=== PATIENT | male | born 1970 | race Caucasian/White ===

== ENCOUNTER → 2017-01-14 | Outpatient (CLI) | payer OTHER ==
[~2017-01-14] MED LIST: ACETAMINOPHEN-H1 TA2 PO; AMOXICILLIN500 MG PO; BACTROBAN CREAM15 GM T; CANAGLIFLOZIN 300 MG; CEPHALEXIN500 M1 PO; CLEOCIN HCL300 MG PO; COMBIVENT RESPIM4 GM IH; COMBIVENT RESPIMAT I; COREG3.125 MG PO; GABAPENTIN300 MG PO; HUMALOG100 UNIT/1 SQ; HYDROCODON-ACETAMINO; HYDROCODONE BIT1 T11 PO; INVANZ1 GM/50 ML IV; INVOKANA100 M1 PO; JANUVIA100 MG PO; LISINOPRIL2.5 MG PO; METFORMIN1000 MG PO; NAPROSYN500 MG PO; NEURONTIN300 MG PO; SIMVASTATIN10 MG PO; SYMBICORT1 AER INH; TRAD5TAB1 PO; TRULICITY0.75 MG/0. SC; ZESTRIL40 MG PO; ZOLOFT50 MG PO
[2017-01-14 08:47] LABS: HEMATOCRIT 45.1 % (42.0-52.0); HEMOGLOBIN 15.2 g/dl (14.0-18.0); MEAN CELL VOLUME 95.1 fl (80.0-94.0); MEAN CORPUSCULAR HGB 32.1 pg (27.0-31.0); MEAN CORPUSCULAR HGB CONC 33.7 g/dl (33.0-37.0); MEAN PLATELET VOLUME 10.7 fl (9.6-12.3); RED BLOOD COUNT 4.74 10*6/uL (4.50-5.90); RED CELL DISTRI WIDTH 12.3 % (0-14.5); WHITE BLOOD COUNT 10.1 10*3/uL (4.8-10.8)
[2017-01-14 08:55] LABS: HEMOGLOBIN A1c 6.8 % (4.8-5.6)
[2017-01-14 09:08] LABS: ALBUMIN 3.8 gm/dl (3.1-4.5); BILIRUBIN, TOTAL 0.2 mg/dl (0.2-1.0); CHLORIDE 99 mmol/L (98-107); HDL CHOLESTEROL 46 mg/dl (40-60); POTASSIUM 3.8 mmol/L (3.5-5.1); SGOT/AST 22 IU/L (3-35); SODIUM 137 mmol/L (136-145)
[2017-01-14 09:12] LABS: ALKALINE PHOSPHATASE 58 U/L (45-117); BUN 22 mg/dl (7-24); C-REACTIVE PROTEIN 1.71 MG/DL (0-0.3); CARBON DIOXIDE 28 mmol/L (21-32); EST GLOM FILT AFRICAN AMERICAN > 60 ml/min; GLUCOSE 148 mg/dL (65-99); SGPT/ALT 35 U/L (12-78); TRIGLYCERIDES 294 mg/dl (<150); VLDL CHOLESTEROL 59 mg/dL (6-40)
[2017-01-14 09:15] LABS: CHOLESTEROL 198 mg/dL (<200); LDL CHOLESTEROL 93 mg/dL (9-159)
== END | disposition home or self-care (01) ==
LOC: LAB 08:22
PROVIDERS: Family Medicine
DX: E11.9 Type 2 diabetes mellitus without complications (principal); I10 Essential (primary) hypertension; E55.9 Vitamin D deficiency, unspecified; E78.00 Pure hypercholesterolemia, unspecified

== ENCOUNTER → 2017-01-29 | Outpatient (CLI) | payer OTHER ==
--- NOTE | ~2017-01-29 | WRIGHTHP ---
[place], [place] PATIENT HISTORY AND PHYSICAL EXAM NAME: NINFA LOYOLA [facility] #: [id number] UNIT #: [id number] ROOM: DOCTOR: BUTCH OconnorAGNIESZKA BIRTHDATE: [birth year] DOS: 01/29/2017 CHIEF COMPLAINT: Diabetic foot ulcers of the right second toe and the left great toe. HISTORY OF PRESENT ILLNESS: This is a 46-year-old male with a history of type 2 diabetes and neuropathy and recurrent callus formation and recurrent diabetic foot ulcers. He has had a history of osteomyelitis of the left first toe or left great toe back in August. He was treated for this with IV antibiotics. He was seen by Infectious Disease. He was seen one time in our Wound Clinic back in June, he only followed up one time and was seen by Dr. Darling, but it looks like he had been following up with Podiatry afterwards in their office instead of here. We said the wound has just never healed on the left great toe, so he comes in with that wound and a new ulcer that is located on the right second toe. He says he has had a history of bone debridement on that foot as well. He has had a history of ulcer there before. He said he was recently seen in the local pharmacist technician's office and had a debridement of the callus done. So apparently, he said that there was a notable ulcer of the right second toe that was debrided of callus and subsequently there was an open wound underneath that. He states that the following 1 or 2 days afterwards he developed erythema and a blistering type appearance and swelling of that second right toe and he was concerned and he was referred here for further care. He does have some diabetic shoes, but they are over a year old. He also has been going back to work recently and wearing special shoes for work. 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 Also I wanted to mention that he describe the second toe on the right foot is callused over. The callus was quite thick and he did not realize that there was an open wound until after it had been debrided. Apparently, he had not been seen in a wound clinic for sometime it sounds like he had problems with perhaps insurance, so it does not seem like he was following up regularly for wound care. In any case, he did complete a course of IV antibiotics for osteo of the left great toe, but the wound never did quite heal as it sounds like. PAST MEDICAL HISTORY: Significant for following: He has had history of poorly healing wounds of both legs, type 2 diabetes, COPD, hypertension, polyneuropathy, history of stasis dermatitis, possible peripheral vascular disease. MEDICATIONS: Are as follows: Invokana 100 mg daily, Neurontin 100 mg daily. He was on ketaconazole topically foot cream, lisinopril 2.5 daily and sertraline 25 daily. ALLERGIES: No known drug allergies. SOCIAL HISTORY: He continues to smoke a pack per day. Denies any alcohol use. He is employed as I said in a factory. REVIEW OF SYSTEMS: He has no pain, no fevers or chills. He does state about the discolored changes of the toe on the right second toe. He has no nausea, [place], [place] PATIENT HISTORY AND PHYSICAL EXAM NAME: NINFA LOYOLA UNIT #: [id number] ROOM: DOCTOR: AGNIESZKA RAE M.D. BIRTHDATE: [birth year] vomiting or diarrhea. He states that he believes his sugar control was good. He is either he says was in the 6.8 range he believes, I will look this up on the computer if I can. PHYSICAL EXAMINATION: VITAL SIGNS: Temperature is 98.9, pulse is 84, respirations 18, and blood pressure is 140/76. GENERAL: This is a young male in no acute distress, pleasant and cooperative. NECK: There is no JVD. LUNGS: Clear. CARDIOVASCULAR: S1, S2 regular rate and rhythm. ABDOMEN: Soft and nontender. EXTREMITIES: He has trace edema of the right lower extremity. He has palpable pulses. His toes are warm. Capillary refill is less than 3 seconds. The WILIAM on the left is 1.01, on the right is 1.02. He has 2 open areas on the left great toe. There is a very thick callus with an open wound measuring 0.9 x 0.4 x 0.4 on the second toe of the right foot distally and there is an open wound of 1.1 x 2 x 0.1. There is a very thick callus present. There is marked erythema, edema and what appears to be the area of trauma on the dorsal aspect where it is missing a nail. A debridement was done of both of these areas. The tissue removed was hyperkeratotic, nonviable tissue, fibrin, slough and subcutaneous tissue on both of these wounds. #15 blade was utilized as well as forceps and separate instruments were used for both of these wounds. There was a moderate amount of bleeding that was controlled with pressure. Post-debridement measurements are as follows: The left great toe wound is measuring 1.1 x 0.8 x 0.5. The right second toe is measuring 3 cm x 2 cm x 1.4 cm. After the callus was removed necrotic tissue there was an obvious open tract that tunneled all the way to bone. I was able to probe it and I did feel bone. A swab culture was obtained from this area. LABORATORY DATA: Most recent lab work, I could find a white count done in December 2016 which shows white count 10, hemoglobin of 14. His platelet counts were 180. His glucose was 148. Chem-7 shows a BUN of 22, creatinine of 0.88, hemoglobin A1c is actually 6.8 it is pretty good. Albumin is normal at 3.8, total protein is 3. CRP is elevated at 1.71 and vitamin D as well. ASSESSMENT AND PLAN: Clinically, he has chronic ulcerations of the left great toe as well as the right second toe. I am quite concerned with the wound on the right second toe due to the fact that I feel bone and there is evidence of some cellulitis. I recommend admission to the hospital for further management to obtain Infectious Disease consultation workup with imaging studies and possible IV antibiotics. However, the patient refuses to do this, so we will start the patient on oral Levaquin for now. I did cultures. I have ordered x-rays and a complete blood work panel for baseline labs. I would like him to follow up with Infectious Disease this week if possible to see if he is a candidate for IV antibiotics. I did explain to him that I am quite concerned about it and that my recommendation still stands for admission. I have also explained that without proper offloading these wounds will never heal. He is back at work in his work boots and I think this is going to be a big problem. At some point, we may want to consider him a candidate for contact cast. He does have a special [place], [place] PATIENT HISTORY AND PHYSICAL EXAM NAME: NINFA LOYOLA UNIT #: [id number] ROOM: DOCTOR: AGNIESZKA RAE M.D. BIRTHDATE: [birth year] offloading boot that he has had, which he says he can use on his right foot so we will do that and he can use a postop shoe for the left foot for now. I have written him a note for him to be off to work in the meantime until further notice. I would like to set him up with ortho test to see if he further to make sure that he is in the proper offloading device for these wounds. Also, I would like to mention that he may be a candidate for hyperbaric oxygen as adjuvant treatment if he continues to have evidence of poor wound healing after wound care for 30 days. So we might want to consider that as well, but I would like to talk to him further about that at the next visit. Followup is in 1 week. He may need more bone debridement to be done on the second toe. He has already had some bone removed from this area, but we may need to do more. Followup is next week. AGNIESZKA RAE MD CM:HISPHYS:PATIENT HISTORY AND PHYSICAL EXAMINATION 04 47 AGNIESZKA RAE M.D. 01/29/171948 interface
== END ==
LOC: WOUNDCARE 02:01
DX: E11.621 Type 2 diabetes mellitus with foot ulcer (principal); L97.522 Non-pressure chronic ulcer of other part of left foot with fat layer exposed; L97.512 Non-pressure chronic ulcer of other part of right foot with fat layer exposed; L84 Corns and callosities; E11.69 Type 2 diabetes mellitus with other specified complication; M86.8X7 Other osteomyelitis, ankle and foot; J44.9 Chronic obstructive pulmonary disease, unspecified; I10 Essential (primary) hypertension; E11.42 Type 2 diabetes mellitus with diabetic polyneuropathy

== ENCOUNTER → 2017-01-30 | Outpatient (CLI) | payer OTHER ==
[2017-01-30 13:14] LABS: BASO # 0.1 10*3/uL (0.0-0.1); BASO % 0.7 % (0.0-1.0); EOS # 0.2 10*3/uL (0.0-0.4); EOS % 2.6 % (1.0-4.0); HEMATOCRIT 46.2 % (42.0-52.0); HEMOGLOBIN 15.4 g/dl (14.0-18.0); LYMPH # 2.6 10*3/uL (1.3-4.4); LYMPH % 34.3 % (27.0-41.0); MEAN CELL VOLUME 95.7 fl (80.0-94.0); MEAN CORPUSCULAR HGB 31.9 pg (27.0-31.0); MEAN CORPUSCULAR HGB CONC 33.3 g/dl (33.0-37.0); MEAN PLATELET VOLUME 9.8 fl (9.6-12.3); MONO # 0.6 10*3/uL (0.1-1.0); MONO % 7.7 % (3.0-9.0); NEUT # 4.2 10*3/uL (2.3-7.9); NEUT % 54.4 % (47.0-73.0); PLATELET COUNT AUTOMATED 238 10*3/uL (130-400); RED BLOOD COUNT 4.83 10*6/uL (4.50-5.90); RED CELL DISTRI WIDTH 11.8 % (0-14.5); WHITE BLOOD COUNT 7.7 10*3/uL (4.8-10.8)
[2017-01-30 13:44] LABS: BUN 23 mg/dl (7-24); CHLORIDE 104 mmol/L (98-107); SODIUM 140 mmol/L (136-145)
[2017-01-30 13:51] LABS: CARBON DIOXIDE 29 mmol/L (21-32); EST GLOM FILT AFRICAN AMERICAN > 60 ml/min; GLUCOSE 138 mg/dL (65-99); POTASSIUM 4.2 mmol/L (3.5-5.1)
[2017-01-30 13:55] LABS: PREALBUMIN 24 mg/dl (20-40)
== END | disposition home or self-care (01) ==
LOC: LAB 12:50
PROVIDERS: Internal Medicine
DX: E11.621 Type 2 diabetes mellitus with foot ulcer (principal); E11.69 Type 2 diabetes mellitus with other specified complication; B96.89 Other specified bacterial agents as the cause of diseases classified elsewhere; M86.9 Osteomyelitis, unspecified

== ENCOUNTER → 2017-02-06 | Outpatient (CLI) | payer OTHER ==
--- NOTE | ~2017-02-06 | PN ---
[place], [place] PROGRESS NOTE NAME: NINFA LOYOLA [facility] #: [id number] UNIT #: [id number] ROOM: DOCTOR: BUTCH OconnorAGNIESZKA BIRTHDATE: [birth year] DATE: 02/06/17 CHIEF COMPLAINT: Diabetic foot ulcer of the right second toe and the left great toe. HISTORY OF PRESENT ILLNESS: This patient was seen for the first time by me last week and was noted to have a very inflamed toe on the 2nd foot distal end, which appeared to be infected clinically. There was an ulcer that probed to bone that was fairly deep and large amount of callus was noted as well. The patient was advised to be admitted; however, he refused. He was given oral Levaquin for empiric antibiotics for 2 weeks and asked to follow back up in the Wound Clinic. Subsequently, he does state that the wound seems to have closed back up. The callus has returned and he is unable to pack the wound any further. There are no fevers or chills. He is tolerating the antibiotic. The redness is definitely much improved as well. There is no significant drainage. He is wearing an offloading device for his right foot and is wearing a postop shoe for the left foot for now mostly at home; however, he wore tennis shoes in today to the wound clinic, but at home has been wearing the postop shoe that was given to him. The culture that was obtained last week just grew some normal laurita. His most recent lab work shows a white count of 7, a hemoglobin of 15, platelets of 238. A BUN of 23, creatinine of 1. His hemoglobin A1c was 7. He had an elevated C-reactive protein at 4.4 and an ESR of 32 I believe. He had a x-ray done of the left great toe, which showed some soft tissue swelling, but no abnormalities with the bone. However, the x-ray of the right second toe did show osteomyelitis of the distal phalanx of the second digit of the right foot. He was requested to have seen Infectious Disease; however, apparently this has not been done yet. He still has not been able to get in, is not clear why. He is tolerating the antibiotics. No fevers or chills are noted. PHYSICAL EXAMINATION: VITAL SIGNS: As follows: Temperature is 98.7, pulse of 80, respirations 18, blood pressure is 140/80. WOUND EXAMINATION: The wound is measuring on the left great toe is measuring 1.3 x 4 x 0.2 in depth, that is of the left great toe. There is moderate to large amount of callus. There is really no purulence or tenderness or erythema noted. The wound on the second digit of the right foot is measuring 0.1 x 0.1 x 0.1. It is essentially covered in thick dry callus with marked ecchymosis present. Debridement was done of both of these wounds. Instruments used were a #15 blade. Separate instruments were used for both these wounds as well as a curette. The tissue removed was hyperkeratosis, callus, fibrin, slough and subcutaneous tissue. There was minimal bleeding controlled with pressure. Post-debridement measurements of the wound on the right foot is 0.6 x 0.5 x 0.9, the depth was measured with the probe. I could still feel bone. The measurements on the left great toe post-debridement are as follows 1.2 x 0.4 x 0.3 in depth. ASSESSMENT AND PLAN: Diabetic foot ulcers of the left great toe and right second digit with associated osteomyelitis of the second toe on the right foot. I have requested for an Infectious Disease consultation. We will reiterate this and hopefully try to get this obtained as soon as possible. Due to the fact that there is osteo and there is bone, the probe goes to the bone, we will have him seen by Podiatry as well to see if bone resection is possibly indicated. He has seen Dr. Ayon for surgeries in the past who has done debridements for him as well as grafting so we will refer to Dr. Ayon. I did speak to him and the patient will hopefully get in next week to see him. In the meantime, we will continue with oral Levaquin for now. It definitely seems to have helped a lot of the [place], [place] PROGRESS NOTE NAME: NINFA LOYOLA UNIT #: [id number] ROOM: DOCTOR: AGNIESZKA RAE M.D. BIRTHDATE: [birth year] inflammation and cellulitis that was present. It is definitely much improved. There are no signs of an acute infection at this time today. He also has a chronic nonhealing ulcer of the left great toe. There does not appear to be currently any osteo noted on the x-ray. The wound is chronic and is formed by repetitive thick callus formation. This was debrided today. We will continue with the current dressing Aquacel silver for now and at some point a contact cast may be an option for him as well to help heal this ulcer. Followup in 1 week. AGNIESZKA RAE M.D. CM:PNTRANS [id number] AGNIESZKA RAE M.D. 02/11/17 1411 SOL [email or web address].R
--- NOTE | ~2017-02-06 | PN ---
[place], [place] PROGRESS NOTE NAME: NINFA LOYOLA [facility] #: [id number] UNIT #: [id number] ROOM: DOCTOR: BUTCH OconnorAGNIESZKA BIRTHDATE: [birth year] DATE: 02/06/17 CHIEF COMPLAINT: Diabetic foot ulcer of the right second toe and the left great toe. HISTORY OF PRESENT ILLNESS: This patient was seen for the first time by me last week and was noted to have a very inflamed toe on the 2nd foot distal end, which appeared to be infected clinically. There was an ulcer that probed to bone that was fairly deep and large amount of callus was noted as well. The patient was advised to be admitted; however, he refused. He was given oral Levaquin for empiric antibiotics for 2 weeks and asked to follow back up in the Wound Clinic. Subsequently, he does state that the wound seems to have closed back up. The callus has returned and he is unable to pack the wound any further. There are no fevers or chills. He is tolerating the antibiotic. The redness is definitely much improved as well. There is no significant drainage. He is wearing an offloading device for his right foot and is wearing a postop shoe for the left foot for now mostly at home; however, he wore tennis shoes in today to the wound clinic, but at home has been wearing the postop shoe that was given to him. The culture that was obtained last week just grew some normal laurita. His most recent lab work shows a white count of 7, a hemoglobin of 15, platelets of 238. A BUN of 23, creatinine of 1. His hemoglobin A1c was 7. He had an elevated C-reactive protein at 4.4 and an ESR of 32 I believe. He had a x-ray done of the left great toe, which showed some soft tissue swelling, but no abnormalities with the bone. However, the x-ray of the right second toe did show osteomyelitis of the distal phalanx of the second digit of the right foot. He was requested to have seen Infectious Disease; however, apparently this has not been done yet. He still has not been able to get in, is not clear why. He is tolerating the antibiotics. No fevers or chills are noted. PHYSICAL EXAMINATION: VITAL SIGNS: As follows: Temperature is 98.7, pulse of 80, respirations 18, blood pressure is 140/80. WOUND EXAMINATION: The wound is measuring on the left great toe is measuring 1.3 x 4 x 0.2 in depth, that is of the left great toe. There is moderate to large amount of callus. There is really no purulence or tenderness or erythema noted. The wound on the second digit of the right foot is measuring 0.1 x 0.1 x 0.1. It is essentially covered in thick dry callus with marked ecchymosis present. Debridement was done of both of these wounds. Instruments used were a #15 blade. Separate instruments were used for both these wounds as well as a curette. The tissue removed was hyperkeratosis, callus, fibrin, slough and subcutaneous tissue. There was minimal bleeding controlled with pressure. Post-debridement measurements of the wound on the right foot is 0.6 x 0.5 x 0.9, the depth was measured with the probe. I could still feel bone. The measurements on the left great toe post-debridement are as follows 1.2 x 0.4 x 0.3 in depth. ASSESSMENT AND PLAN: Diabetic foot ulcers of the left great toe and right second digit with associated osteomyelitis of the second toe on the right foot. I have requested for an Infectious Disease consultation. We will reiterate this and hopefully try to get this obtained as soon as possible. Due to the fact that there is osteo and there is bone, the probe goes to the bone, we will have him seen by Podiatry as well to see if bone resection is possibly indicated. He has seen Dr. Ayon for surgeries in the past who has done debridements for him as well as grafting so we will refer to Dr. Ayon. I did speak to him and the patient will hopefully get in next week to see him. In the meantime, we will continue with oral Levaquin for now. It definitely seems to have helped a lot of the [place], [place] PROGRESS NOTE NAME: NINFA LOYOLA UNIT #: [id number] ROOM: DOCTOR: AGNIESZKA RAE M.D. BIRTHDATE: [birth year] inflammation and cellulitis that was present. It is definitely much improved. There are no signs of an acute infection at this time today. He also has a chronic nonhealing ulcer of the left great toe. There does not appear to be currently any osteo noted on the x-ray. The wound is chronic and is by repetitive thick callus formation. This was debrided today. We will continue with the current dressing Aquacel silver for now and at some point a contact cast may be an option for him as well to help heal this ulcer. Followup in 1 week. AGNIESZKA RAE M.D. CM:PNTRANS 06 06 AGNIESZKA RAE M.D. 02/07/17 1725 SOL [email or web address].[email or web address]
== END ==
LOC: WOUNDCARE 02:22
DX: E11.621 Type 2 diabetes mellitus with foot ulcer (principal); L97.522 Non-pressure chronic ulcer of other part of left foot with fat layer exposed; L97.512 Non-pressure chronic ulcer of other part of right foot with fat layer exposed; E11.69 Type 2 diabetes mellitus with other specified complication; M86.8X7 Other osteomyelitis, ankle and foot; L84 Corns and callosities

== ENCOUNTER → 2017-02-13 | Outpatient (CLI) | payer OTHER ==
--- NOTE | ~2017-02-13 | PR ---
[place], [place] PROGRESS NOTE NAME: NINFA LOYOLA [facility] #: [id number] UNIT #: [id number] ROOM: DOCTOR: BUTCH OconnorAGNIESZKA BIRTHDATE: [birth year] DOS: 02/13/2017 WOUND CARE PROGRESS NOTE CHIEF COMPLAINT: Diabetic foot ulcer of the right second toe and the left great toe. HISTORY OF PRESENT ILLNESS: The patient has had a wound on the right second toe for approximately 3 weeks now. He was referred to us by his pole peeler, Dr. Gasca. He had a fairly deep tunneling wound at the tip of his toe that did probe to bone. An x-ray was positive for osteomyelitis. His culture grew out normal laurita. He was started empirically on oral Levaquin until he could get in to see Infectious Disease. He has an appointment with Infectious Disease next week. He is tolerating the antibiotics well. He says the wound appears to be healing. He is wearing an offloading removable walking shoe or device, which is a long one, not a short one at this point. He has been off of work now for 2-3 weeks. 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 He has not been able to see if he can get light duty or not. He also has a wound on the left great toe, which makes offloading really challenging due to the fact that he has got 2 different sites here that are affected. He has had a wound on his left great toe off and on since last year. At one point, he did have osteo of the left great toe. The recent x-ray was negative. It is associated with the thick callus formation. He has no specific complaints. He does say that he is not able to pack the wound as much on the second toe as before as it seems like it is getting more shallow. He has not been able to see Dr. Ayon yet. He was thinking that they were going to call him for an appointment, so I will find out how we can arrange for followup with Podiatry. PHYSICAL EXAMINATION: VITAL SIGNS: His temp is 98.4, his pulse is 92, respirations 18, and blood pressure is 144/84. WOUND EXAMINATION: The wound on the left great toe is measuring 1.1 x 0.4 x 0.2. The depth is not as deep due to the callus. There is still some callus around it, but it is definitely not as prominent as before. There is no necrotic tissue present. The wound on the toe is measuring 0.1 x 0.1 x 0.1. At this point, it is covered with some callus, but not as thick as before. Debridement was done of both of these wounds. The tissue removed on the right foot was hyperkeratotic callus only, nonviable tissue and it did seem to be open after removal of this. This was done with a #15 blade. There was a minimal amount of bleeding that was controlled with pressure. I did not appreciate a bone exposure at this time. The post-debridement measurements are as follows 0.3 x 0.3 x 0.2. The wound on the left great toe, this is a subcutaneous debridement. The tissue removed was hyperkeratotic callus with a #15 blade and a curette to clean the base of the wound. There was minimal amount of bleeding that was controlled with pressure. The post-debridement measurements are 1.1 x 0.4 x 0.2 as before. ASSESSMENT AND PLAN: Bilateral foot ulcers with osteo of the right toe and a chronic nonhealing wound of the left great toe. Due to the fact that there was osteo present on the right toe, we have chosen to use an offloading device on [place], [place] PROGRESS NOTE [facility] [id number] UNIT #: [id number] ROOM: DOCTOR: AGNIESZKA RAE M.D. BIRTHDATE: [birth year] this foot for now. He is going to see Dr. Reyes next week and also I would like to get him in with Dr. Ayon to see if he thinks bone debridement is necessary. The wound does appear to be healing fairly nicely at this point with wound care and antibiotics. I would like to continue with oral antibiotics for now until he sees doctor at Infectious Disease. For the left toe ulcer, it is fairly stagnant at this point and I think a lot of it has to do with offloading. It would be difficult to try and offload this one with the cast at this point while he has another offloading device on his right foot. So, we are going to switch to a collagen. There is no sign of infection and hopefully if the wound on the right side remains good like it has been, we can consider doing a cast on the left side and a postop shoe on the right. This is potentially the plan for next week if things are continuing to go in the right direction. I will write a script for refill of the antibiotics until seen by doctor at Infectious Disease. AGNIESZKA RAE MD CM:PNTRANS [id number] AGNIESZKA RAE M.D. 02/14/17 0435 interface
== END ==
LOC: WOUNDCARE 03:00
DX: E11.621 Type 2 diabetes mellitus with foot ulcer (principal); L97.522 Non-pressure chronic ulcer of other part of left foot with fat layer exposed; L97.512 Non-pressure chronic ulcer of other part of right foot with fat layer exposed; E11.69 Type 2 diabetes mellitus with other specified complication; M86.8X7 Other osteomyelitis, ankle and foot

== ENCOUNTER → 2017-02-20 | Outpatient (CLI) | payer OTHER ==
--- NOTE | ~2017-02-20 | PR ---
[place], [place] PROGRESS NOTE NAME: NINFA LOYOLA [facility] #: [id number] UNIT #: [id number] ROOM: DOCTOR: BUTCH OconnorAGNIESZKA BIRTHDATE: [birth year] DOS: 02/20/2017 CHIEF COMPLAINT: Diabetic foot ulcer of the right second toe and the left great toe. HISTORY OF PRESENT ILLNESS: The patient has had a wound on his right second toe for approximately 4 weeks now. He was initially sent to us by Podiatry for this wound. Initially, the wound was quite deep after callus was removed and it did probe to bone. The x-ray was positive for osteomyelitis. Cultures just grew normal laurita. He was started empirically on oral Levaquin. He was referred to Infectious Disease. He has not been able to see her yet, but he is going to see her tomorrow. Last week, it looked like the wound had been healing fairly nicely and seems to definitely be more shallow. This week, however, callus seems to have really thickened up quite a bit. There are no fevers or chills. He is on the Levaquin without any issues and reports no pain. He also has a wound on the left great toe on the plantar aspect that has been present since on and off for almost a year. Recent x-ray of that was negative. He still has a very thick callus of the left great toe that is noted. He has a offloading boot that was initially made for the left foot; however, he has been using it for the right to help offload the second toe. No pain, fevers or chills are noted. PHYSICAL EXAMINATION: VITAL SIGNS: As follows: Temperature is 98.6, pulse of 84, respirations 16, blood pressure is 140/82. WOUND EXAM: The wound on the left great toe is measuring about the same at 1.1 x 0.4 x 0.2. There is very thick amount of callus present. There is no undermining noted. No cellulitis or purulence noted minimal fibrin slough was present at the base of the wound. The wound on the right second toe is measuring 0.1 x 0.1 x 0.1. It is really covered in a very thick callus. Debridement was done of this area. The tissue removed was hyperkeratotic tissue and some subcutaneous tissue. This was performed with a #15 blade and a curette. There was a moderate amount of bleeding that was controlled with pressure. A curette was taken deep into the wound to remove some tissue and that tissue was sent for culture. The patient tolerated the debridement well, and the bleeding was controlled with pressure. A debridement was also done on the left great toe area that was a selective debridement with hyperkeratotic tissue only that was removed and some fibrin and slough. There was a moderate amount of bleeding that was controlled with pressure and silver nitrate and a #15 blade was utilized. Post-debridement measurements are unchanged. However, the post-debridement measurements on the right great toe are 0.3 x 0.3 x 1 cm deep that was checked with the probe. ASSESSMENT AND PLAN: Right second toe ulceration with osteomyelitis confirmed by chest x-ray. It did seem that the wound had been improving last week; however, now it seems to have a tunneled again and it is fairly deep. There are no overt systemic signs of infection. He has had at least almost 30 days of standard wound care with still a fairly deep wound present. He is going to be seen by Infectious Disease tomorrow. He has been on oral antibiotics at least almost a month now. I think that he would be a candidate for possible hyperbaric oxygen as adjuvant therapy to save as much of the toe as possible; [place], [place] PROGRESS NOTE NAME: NINFA LOYOLA UNIT #: [id number] ROOM: DOCTOR: AGNIESZKA RAE M.D. BIRTHDATE: [birth year] however, he may still need further bone debridement to be done if this does not improve as well. The left great toe wound is stable and stagnant. It is not healing secondary to poor offloading, so the shoe that he had before was made for offloading. He said he had a good result with that, so I want him to use on the left foot for now instead of the right. He continues a postop shoe for the right foot. Eventually, I want to get him into a contact cast as long as he can balance okay as he has wounds on both of his feet, which makes things offloading a bit of a challenge, so hopefully will try to get him early next week for a contact cast of the left great toe. I think that since the great toe was affected on this, I felt we should concentrate on trying to heal this one at this time with a cast. I think that he would do well with this on this foot, and I think this wound would heal fairly quickly with a contact cast. The right second toe wound culture was redone today. We will see what grows and then we will have him pack this wound with Aquacel Ag ribbon for now as before and consider HBO therapy. He has had standard wound care. He has had bone debridement in the past. He has had almost 30 days' worth of antibiotics. He is going to have Infectious Disease consultation. He has had offloading. His diabetes is fairly well controlled with a hemoglobin A1c of 7, and he has good vascular flow. He does have a history of COPD, so eventually we will have to get him cleared that way, but he wants us to go ahead and check with his insurance first to see if they would approve this treatment or not. Follow up early next week. AGNIESZKA RAE MD CM:PNTRANS [phone] AGNIESZKA RAE M.D. 02/21/17 0257 interface
== END | disposition home or self-care (01) ==
LOC: WOUNDCARE 01:15 → LAB 01:15 → WOUNDCARE 13:57
DX: E11.621 Type 2 diabetes mellitus with foot ulcer (principal); M86.00 Acute hematogenous osteomyelitis, unspecified site; B96.89 Other specified bacterial agents as the cause of diseases classified elsewhere

== ENCOUNTER → 2017-02-27 | Outpatient (CLI) | payer OTHER ==
--- NOTE | ~2017-02-27 | PR ---
[place], [place] PROGRESS NOTE NAME: NINFA LOYOLA [facility] #: [id number] UNIT #: [id number] ROOM: DOCTOR: BUTCH OconnorAGNIESZKA BIRTHDATE: [birth year] DOS: 02/27/2017 CHIEF COMPLAINT: Followup of diabetic foot ulcers. HISTORY OF PRESENT ILLNESS: The patient has had a wound on his right second toe for approximately 5 weeks now. This is a recurrent ulceration. He has had this before, has had bone debridement and some surgical intervention for osteo per patient report of this toe. In addition, he has a chronic ulcer on the left great toe which is also diabetic and is recurrent and has been present since at least August according to the patient. He has been following up in the Wound Clinic now for several weeks now. During the initial visit, the patient was noted to have what appeared to be an obvious infection of the second toe after callus removal. Bone was probed and was recommended for the patient to be admitted for IV antibiotics and further wound care. However, the patient declined this recommendation and was started on oral antibiotics. Levaquin was chosen. He was referred to Infectious Disease as well and had an x-ray that was positive for osteomyelitis of the right second toe. The patient has been on the oral Levaquin for 3-[address] weeks now[address] Reyes who discontinued the Levaquin and had ordered an MRI, but he says it was of the left foot and not the right foot. He comes in today without any specific complaints, but does note that the toe is definitely redder than it had been last week. The wound is open and he says he noted it was somewhat goopy according to the patient when he changed the dressing this morning. He is wearing an offloading shoe for the left great toe ulcer and wearing a postop shoe for the right foot at this time. He has no specific complaints. He does continue to smoke. I did recommend that he try and quit as this will impede wound healing and he seems to be aware of this. He is currently off work at the present moment. He denies any pain, fevers or chills. No other specific complaints. OBJECTIVE: VITAL SIGNS: Stable. Temperature is 98.6, pulse is 82, respirations 16, blood pressure is 128/76. WOUND EXAMINATION: The left great toe wound is about the same 1.1 x 0.4 x 0.20. There is some callus formation around the periwound and does not seem to be as thick as it was last week; however, I do not see a change as far as the improvement goes. There does not appear to be any sign of infection. The second great toe wound is measuring 0.5 x 0.4 x 1 cm in depth. This area debridement was done. The right second toe was debrided first. The tissue removed was callus, fibrin slough and subcutaneous tissue down, bone was probed. There was a moderate amount of bleeding that was controlled with pressure. Post-debridement measurements are the same; however, the depth goes down to 1.1 and it is easily probed with a curette and not just with a small probe. Debridement was done of the left great toe. The tissue removed was callus, fibrin, slough and subcutaneous tissue. There was a moderate amount of bleeding that was controlled with pressure. Post-debridement measurements are unchanged except for the depth of 0.3. The patient tolerated the debridement well. There was moderate amount of bleeding that was controlled with pressure. His most recent labs showed ESR of 3 down from 32. The CRP is down to 0.94. It was 4.4. Hemoglobin A1c is 7 and his cultures have been negative so far. [place], [place] PROGRESS NOTE NAME: NINFA LOYOLA Camila UNIT #: [id number] ROOM: DOCTOR: AGNIESZKA RAE M.D. BIRTHDATE: [birth year] ASSESSMENT AND PLAN: Diabetic foot ulcers. The right great toe ulcer is a Zaragoza 3 by clinical examination and by imaging studies. He has bone still exposed when you probe it and it is still a quite deep ulceration. The redness is definitely worse than it was last week. It has definitely come back since subsequently to antibiotics being discontinued. I have placed a call to Infectious Disease to see if perhaps it would benefit from him with starting IV antibiotics that can be placed with the PICC line and outpatient use. He is not septic. However, there is a concern of ongoing infection of the toe. He also has had some debridement done of that toe. However, since the bone is still exposed and he continues to have an open deep wound, I would like him to also be evaluated by Dr. Ayon who has seen him before and has operated on him in the past for some bone removal to see if that would help facilitate. He has had bone debridement before, but he may need further debridement. He also in my opinion would be considered a candidate for hyperbaric oxygen as he has had 30 days of standard wound care. He has had bone debridement done in that wound before. He has had antibiotics; however, continues to have an open deep wound that is not healing. His hemoglobin A1c is under control and he does not have any vascular disease, so I would like to see if we can set him up for that. Insurance paperwork will be started. Hopefully, he will meet criteria to be able to be a candidate. Once his approval occurs, then we will go ahead and do a chest x-ray and EKG for clearance. His left great toe ulcer is stagnant and has not really improved. It does not appear to be acutely infected. I think this is nonhealing secondary to offloading. I did want to put a contact cast on today; however, Infectious Disease has ordered an MRI of the left foot so I will wait for this until that is done first. It does not appear to be acutely infected; however, clinically, so we will go ahead and wait for the imaging studies of that and I will hopefully talk to Infectious Disease regarding the second toe to see if any different antibiotic can be utilized. Cultures were negative so far. As far as dressings go for the left great toe, I would like to use collagen dressing and have him use his offloading shoe for now that he has. For the right second toe, I would like to just use iodoform packing and for him to change it every day for now. Hopefully, he will be able to get in to see Podiatry this week. Follow up in Wound Clinic in 1 week. [place], [place] PROGRESS NOTE NAME: NIRNINFA Camila UNIT #: [id number] ROOM: DOCTOR: AGNIESZKA RAE M.D. BIRTHDATE: [birth year] AGNIESZKA RAE MD CM:PNTRANS [id number] AGNIESZKA RAE M.D. 03/04/17 0738 interface
== END ==
LOC: WOUNDCARE 01:10
DX: E11.621 Type 2 diabetes mellitus with foot ulcer (principal); L97.522 Non-pressure chronic ulcer of other part of left foot with fat layer exposed; L97.512 Non-pressure chronic ulcer of other part of right foot with fat layer exposed; E11.69 Type 2 diabetes mellitus with other specified complication; M86.471 Chronic osteomyelitis with draining sinus, right ankle and foot; L84 Corns and callosities

== ENCOUNTER → 2017-03-25 | Outpatient (CLI) | payer OTHER | END | disposition home or self-care (01) | LOC: MRI 09:36 | DX: S92.311A Displaced fracture of first metatarsal bone, right foot, initial encounter for closed fracture (principal); M86.8X7 Other osteomyelitis, ankle and foot; M19.071 Primary osteoarthritis, right ankle and foot; X58.XXXA Exposure to other specified factors, initial encounter; Y93.89 Activity, other specified; Y92.89 Other specified places as the place of occurrence of the external cause; Y99.8 Other external cause status ==

== ENCOUNTER → 2017-03-27 | Outpatient (CLI) | payer OTHER | END | disposition home or self-care (01) | LOC: MRI 03-25 10:00 | DX: S91.102A Unspecified open wound of left great toe without damage to nail, initial encounter (principal); M86.172 Other acute osteomyelitis, left ankle and foot; M86.171 Other acute osteomyelitis, right ankle and foot; E11.9 Type 2 diabetes mellitus without complications; X58.XXXA Exposure to other specified factors, initial encounter; Y93.89 Activity, other specified; Y92.89 Other specified places as the place of occurrence of the external cause; Y99.8 Other external cause status ==

== ENCOUNTER → 2017-04-03 | Outpatient (CLI) | payer OTHER ==
[~2017-04-03] MED LIST changes: +DOXYCYCLINE100 MG PO; +FARXIGA10 M1 PO; +LIPITOR10 MG PO; +METFORMIN500 MG PO; +NORCO 5-325 TA1 EACH PO
== END | disposition home or self-care (01) ==
LOC: RESCLI 02:53
DX: Z01.818 Encounter for other preprocedural examination (principal); L97.519 Non-pressure chronic ulcer of other part of right foot with unspecified severity; J44.9 Chronic obstructive pulmonary disease, unspecified; I10 Essential (primary) hypertension; F41.9 Anxiety disorder, unspecified; Z72.0 Tobacco use

== ENCOUNTER → 2017-04-09 | Outpatient (CLI) | payer OTHER | END | disposition home or self-care (01) | LOC: RESCLI 03:55 | DX: E11.59 Type 2 diabetes mellitus with other circulatory complications (principal); M86.9 Osteomyelitis, unspecified; Z72.0 Tobacco use; Z79.4 Long term (current) use of insulin ==

== ENCOUNTER → 2017-04-10 | Day surgery (SDC) | payer OTHER ==
[~2017-04-10] VITALS: Ht 180.3 cm; Wt 104.3 kg
--- NOTE | ~2017-04-10 | O ---
[place], [place] OPERATIVE NOTE NAME: NINFA LOYOLA UNIT #: [id number] ROOM: DOCTOR: SB LOCKETT III, DPM BIRTHDATE: [birth year] DOS: 04/10/2017 TIME OF DICTATION: 12:27 p.m. SURGEON: Sb Lockett DPM. BIT SANDER: 1. Fco Calvo DPM. 2. Chemo Ventura DPM. PREOPERATIVE DIAGNOSIS: Osteomyelitis, right second digit. POSTOPERATIVE DIAGNOSIS: Osteomyelitis, right second digit. PROCEDURE: Bone debridement, biopsy with partial amputation of the right second digit. HEMOSTASIS: None. ESTIMATED BLOOD LOSS: 10 mL. MATERIALS: None. INJECTABLES: Approximately 10 mL of 0.5% Marcaine plain was injected in a local block type fashion prior to start of the case. FINDINGS: Consistent with preoperative diagnosis. COMPLICATIONS: None. HISTORY OF PRESENT ILLNESS: This is a male well known to us in the outpatient setting who has been treated for previous history of ulcerations as well as osteomyelitis of his digits. Most notably on the right second digit the patient had an MRI suspicious for osteomyelitis as well as possible septic arthritis of his distal interphalangeal joint. He also had an ulceration to the plantar sulcus of his right second digit. We discussed the options with the patient preoperatively. He had failed outpatient IV antibiotics as well as local wound care. After discussion with the patient, we felt that partial amputation versus complete amputation with bone debridement and biopsy was appropriate and he was in agreement. Therefore, the patient was consented for bone debridement, biopsy with partial versus complete amputation of his right second digit. All risks, benefits, complications, procedures, alternatives were discussed and all questions were answered to his apparent satisfaction. The pre, javier, postoperative course was also discussed. PHYSICAL EXAMINATION: VASCULAR: DP and PT pulses are palpable, CFT within normal limits, mild edema. DERMATOLOGY: The patient has a full thickness ulceration appreciated plantar [place], [place] OPERATIVE NOTE NAME: NINFA LOYOLA UNIT #: [id number] ROOM: DOCTOR: SB LOCKETT III, DPM BIRTHDATE: [birth year] sulcus of his right second digit with exposed bone. He has a distal right second digit ulceration as well that appears to probe to bone. No signs of infection or inflammation. No cellulitis tracking proximally. No lymphangitis. NEUROLOGIC: Loss of protective sensation secondary to diabetic peripheral neuropathy. ORTHOPEDIC: Muscle strength is maintained. DESCRIPTION OF PROCEDURE: The patient was brought to the operating room and laid on the table in supine position. His foot was prepped and draped in usual sterile fashion. Pneumatic compression device was placed on the contralateral limb for DVT prophylaxis. Preoperative antibiotics were administered per hospital protocol. Our attention was directed to the right second digit where again an ulceration was appreciated distal aspect of his digit. The probe to bone as well as a plantar ulceration to the sulcus of the toe with exposed tendon. A fishmouth type incision was outlined over the base of the toe that spiral dorsally that had adequate soft tissue for flap coverage. We then made a full thickness incision down through skin as well as subcutaneous tissue with both sharp as well as blunt dissection. All bleeders were cauterized as necessary. Bone was sent from the distal phalanx for culture as well as biopsy. The toe was disarticulated at the level of the proximal interphalangeal joint and a proximal clean margin was sent from the proximal phalanx. Copious irrigation was then performed with approximately 3 liters of sterile saline using cystoscopy tube drainage. A post-lavage deep soft tissue culture was obtained. Dirty gloves and drapes were exchanged for clean and a delayed closure was then performed with 2-0 Vicryl followed by skin closure with 3-0 nylon. The patient tolerated the procedure well and left the operating room with neurovascular status intact and vital signs stable. Prognosis for healing is fair. He will follow up with us in the outpatient setting. We will be going back into his walking boot. He will take 81 mg aspirin for DVT prophylaxis as well as doxycycline for antibiotic prophylactically. We will follow up with him in the office next week. [place], [place] OPERATIVE NOTE NAME: NINFA LOYOLA UNIT #: [id number] ROOM: DOCTOR: SB LOCKETT III, DPM BIRTHDATE: [birth year] SB LOCKETT III, DPM CM:OPRECORD:OPERATIVE NOTE [id number] SB LOCKETT III DPHeaven 04/10/17 1328 interface
[2017-04-10 11:12] VITALS: BP 136/78
[2017-04-10 12:33] VITALS: BP 151/85
[2017-04-10 12:48] VITALS: BP 133/86
[2017-04-10 13:03] VITALS: BP 132/81
[2017-04-10 13:17] VITALS: BP 134/82
== END | disposition home or self-care (01) ==
LOC: SDC 04-04 08:45
DX: E11.621 Type 2 diabetes mellitus with foot ulcer (principal); E11.69 Type 2 diabetes mellitus with other specified complication; M86.8X7 Other osteomyelitis, ankle and foot; L97.519 Non-pressure chronic ulcer of other part of right foot with unspecified severity; I10 Essential (primary) hypertension; K21.9 Gastro-esophageal reflux disease without esophagitis; F32.9 Major depressive disorder, single episode, unspecified; J43.9 Emphysema, unspecified; Z83.3 Family history of diabetes mellitus; Z82.5 Family history of asthma and other chronic lower respiratory diseases; F17.210 Nicotine dependence, cigarettes, uncomplicated

== ENCOUNTER → 2017-07-25 | Outpatient (CLI) | payer OTHER | END | disposition home or self-care (01) | LOC: RAD 16:09 | DX: R05 Cough (principal); R06.2 Wheezing; R09.89 Other specified symptoms and signs involving the circulatory and respiratory systems; E11.9 Type 2 diabetes mellitus without complications; J44.9 Chronic obstructive pulmonary disease, unspecified; F17.200 Nicotine dependence, unspecified, uncomplicated ==

== ENCOUNTER → 2017-07-30 | Outpatient (CLI) | payer OTHER ==
[2017-07-30 16:34] LABS: ALBUMIN 3.5 gm/dl (3.1-4.5); ALKALINE PHOSPHATASE 86 U/L (45-117); BUN 11 mg/dl (7-24); CHLORIDE 100 mmol/L (98-107); CHOLESTEROL 181 mg/dL (<200); CPK 117 U/L (39-308); CREATININE 0.84 mg/dL (0.70-1.30); HDL CHOLESTEROL 37 mg/dl (40-60); LDL CHOLESTEROL 122 mg/dL (9-159); POTASSIUM 4.1 mmol/L (3.5-5.1); SGOT/AST 25 IU/L (3-35); SGPT/ALT 28 U/L (12-78); SODIUM 138 mmol/L (136-145); TOTAL PROTEIN 8.4 gm/dL (6.4-8.2); TRIGLYCERIDES 110 mg/dl (<150); VLDL CHOLESTEROL 22 mg/dL (6-40)
== END | disposition home or self-care (01) ==
LOC: LAB 15:56
PROVIDERS: Family Medicine
DX: E11.40 Type 2 diabetes mellitus with diabetic neuropathy, unspecified (principal); E78.00 Pure hypercholesterolemia, unspecified

== ENCOUNTER 2018-01-05 13:13 | Inpatient (IN) | payer OTHER ==
[~2018-01-05] VITALS: Ht 180.3 cm; Wt 106.3 kg
--- NOTE | ~2018-01-05 | WRIGHTHP ---
[place], [place] PATIENT HISTORY AND PHYSICAL EXAM NAME: NINFA LOYOLA [facility] #: [id number] UNIT #: [id number] ROOM: 532 DOCTOR: YOLANDE JUSTICE MD BIRTHDATE: [birth year] DOS: 01/05/2018 HISTORY OF PRESENT ILLNESS: The patient is a 47-year-old gentleman with a past medical history of: 1. Obesity. 2. Type 2 diabetes mellitus since the age of [age] years old. 3. Previous history of osteomyelitis of the first big toe and amputation of the second digit of the right foot. 4. History of nicotine smoke dependence. 5. Benign essential hypertension. 6. History of chronic back pains. 7. History of COPD. The patient presented to the Emergency Department at [facility] because of worsening of his left big toe infection. The patient says the infection has been going on off and on for about 2 years now and his toe was getting ready to fall off. The patient was evaluated in the Emergency Department and admitted for further management. No complaints of any chest pains. No shortness of breath. No GI or urinary symptoms. The patient says his blood sugar is staying around 120 as checked at home. REVIEW OF SYSTEMS: LUNGS: No increasing shortness of breath. GASTROINTESTINAL: No nausea, vomiting, diarrhea or constipation. CARDIOVASCULAR SYSTEM: No chest pains or palpitations. SOCIAL HISTORY: History of nicotine smoke dependent. Denies any alcohol or drug abuse. HOME MEDICATIONS: The patient takes DuoNeb, Farxiga, Neurontin. FAMILY HISTORY: Noncontributory. PHYSICAL EXAMINATION: GENERAL: Alert and oriented x 3, moderately obese, in no visible distress, BMI of 32.7.. GENERAL APPEARANCE: The patient is alert and oriented x 3, in no visible distress. HEENT AND NECK: Extraocular movements are intact. Sclerae are anicteric. Oral mucosa is moist and clean. No obvious facial weakness. Neck is supple without any lymphadenopathy. No thyromegaly. No JVD. No carotid arterial bruits. LUNGS: Clear to auscultation. No wheezing. No rhonchi. CARDIOVASCULAR SYSTEM: Heart rate is regular in rate and rhythm. S1 and S2 normally audible. No significant murmur or any other abnormal cardiac sounds. ABDOMEN: Soft, nontender. No obvious organomegaly. Bowel sounds are present. No obvious herniation. EXTREMITIES: The patient has a necrotic wound of the left great toe and signs of scarring and ____ surgery at the right great toe and also amputation of the distal second digit of the right foot. CENTRAL NERVOUS SYSTEM: Alert and oriented x 3. Cranial nerves II-XII are [place], [place] PATIENT HISTORY AND PHYSICAL EXAM NAME: NINFA LOYOLA UNIT #: [id number] ROOM: [facility] DOCTOR: YOLANDE JUSTICE MD BIRTHDATE: [birth year] intact. Speech is normal. The patient is able to move all extremities. Normal muscle strength. Deep tendon reflexes are equal on both sides. Plantars were downgoing. LABORATORY DATA: Hemoglobin A1c 6.5. No leukocytosis. Hemoglobin 14.6. IMPRESSION AND PLAN: 1. Type 2 diabetes mellitus, with well controlled blood sugars, staying around 120 as checked at home and HbA1c of 6.5. I will continue his present treatment. 2. Diabetic left great toe ulcer with necrotic toe, to be evaluated by Dr. Miles. The patient may require amputation. 3. Major depression, recurrent, mild, treated and controlled with Zoloft. 4. Diabetic peripheral polyneuropathy, treated with gabapentin and Vicodin as needed, which has been continued. 5. Previous history of hypertension, with slightly elevated blood pressures. The patient's blood pressures apparently had been diet controlled recently. 6. Poor compliance with treatment and the patient apparently has not seen his doctor for some time. 7. Nicotine smoke dependence, centrilobular emphysema. The patient encouraged to stop. YOLANDE JUSTICE MD CM:HISPHYS:PATIENT HISTORY AND PHYSICAL EXAMINATION [id number] YOLANDE JUSTICE MD 01/05/18 2007 interface
--- NOTE | ~2018-01-05 | PR ---
[place], [place] PROGRESS NOTE NAME: NINFA LOYOLA UNIT #: [id number] ROOM: 532 DOCTOR: YOLANDE JUSTICE MD BIRTHDATE: [birth year] DOS: 01/08/2018 SUBJECTIVE: The patient is starting to feel better after surgery. The pain is improving. He is still requiring Dilaudid. OBJECTIVE: VITAL SIGNS: Blood pressure 124/70, heart rate of 66 beats per minute, breathing normally, afebrile. GENERAL APPEARANCE: Alert and oriented x 3. HEENT AND NECK: Exam within normal limits. CARDIOVASCULAR SYSTEM: Heart rate is regular in rate and rhythm. S1 and S2 normally audible. LUNGS: Clear to auscultation. ABDOMEN: Soft, nontender. No obvious organomegaly. Bowel sounds are present. EXTREMITIES: Amputated left toe. IMPRESSION: 1. Diabetic left big toe ulcer with necrosis and severe infection, acute over chronic, status post amputation with significant pains, being controlled with IV Dilaudid and being followed by Dr. Miles, the surgeon. 2. Type 2 diabetes mellitus, with well controlled blood sugars. 3. Centrilobular emphysema, treated and controlled. The patient is on bronchodilators. 4. Obesity, BMI of 32.7. The patient is working with Dietary. YOLANDE JUSTICE MD CM:PNTRANS [id number] YOLANDE JUSTICE MD 01/08/182009 interface
--- NOTE | ~2018-01-05 | DS ---
[place], [place] DISCHARGE SUMMARY NAME: NINFA LOYOLA UNIT #: [id number] ROOM: 532 DOCTOR: YOLANDE JUSTICE MD BIRTHDATE: [birth year] DOS: 01/09/2018 DISCHARGE DIAGNOSES: 1. Necrotic left toe and osteomyelitis with diabetic foot ulcer, nonhealing for about 2 years. 2. History of obesity. 3. Type 2 diabetes mellitus, well controlled since the age of [age] years old. 4. History of nicotine smoke dependence. 5. Benign essential hypertension. 6. Chronic back pains. 7. Chronic obstructive pulmonary disease. HOSPITAL COURSE: The patient presented to the emergency department with worsening of left big toe infection, which had been recurrent for about 2 years. The patient said toe was ready to fall off and he was evaluated by Dr. Miles, the surgeon, who took him for amputation and following this, the patient was kept on IV Dilaudid for pain control. The patient was continued on antibiotics and will be going home on Augmentin and follow up with Dr. Miles as an outpatient. Type 2 diabetes mellitus was well controlled. Blood sugars with a hemoglobin A1c of 6.5. Major depression, recurrent, mild, treated and controlled with Zoloft. Previous history of hypertension with controlled blood pressures. Nicotine smoke dependence and centrilobular emphysema. The patient encouraged to stop smoking cigarettes. LABORATORY DATA: Blood cultures were negative. Foot x-ray showed great toe soft swelling ulceration without radiopaque foreign body, erosion of fracture. Hemoglobin A1c of 6.5. DISCHARGE MANAGEMENT: Metoclopramide 10 mg t.i.d. p.r.n., Zoloft 100 mg a day, gabapentin 800 mg 3 times a day, metformin 1000 mg b.i.d., Augmentin 875 mg b.i.d. for a week, Vicodin p.r.n. for pain, which he was already taking at home. [place], [place] DISCHARGE SUMMARY NAME: NINFA LOYOLA UNIT #: [id number] ROOM: 532 DOCTOR: YOLANDE JUSTICE MD BIRTHDATE: [birth year] YOLANDE JUSTICE MD CM:JB [id number] YOLANDE JUSTICE MD 01/10/18 1128 interface
--- NOTE | ~2018-01-05 | PR ---
[place], [place] PROGRESS NOTE NAME: NINFA LOYOLA UNIT #: [id number] ROOM: 532 DOCTOR: YOLANDE JUSTICE MD BIRTHDATE: [birth year] DOS: 01/06/2018 SUBJECTIVE: The patient is doing about the same. He has necrotic left big toe. OBJECTIVE: GENERAL APPEARANCE: The patient is alert and oriented x 3, in no visible distress. VITAL SIGNS: Blood pressure 141/75, heart rate 78 beats per minute, breathing 18 times per minute, temperature 98 degrees Fahrenheit. HEENT AND NECK: Exam within normal limits. CARDIOVASCULAR SYSTEM: Heart rate is regular in rate and rhythm. S1 and S2 normally audible. LUNGS: Clear to auscultation. ABDOMEN: Soft, nontender. No obvious organomegaly. Bowel sounds are present. EXTREMITIES: Necrotic left big toe. IMPRESSION: 1. Diabetic left great toe ulcer with necrotic toe. The patient going for surgery tomorrow with Dr. Miles. 2. Type 2 diabetes mellitus with well controlled blood sugars. HbA1c of 6.5. 3. Major depression, treated and controlled. The patient on Zoloft. 4. History of hypertension, diet-controlled. Blood pressures have been staying normal. 5. History of centrilobular emphysema, presently asymptomatic. 6. Obesity with BMI of 32.7. The patient working with dietary. YOLANDE JUSTICE MD CM:PNTRANS [id number] YOLANDE JUSTICE MD 01/06/18 1402 interface
--- NOTE | ~2018-01-05 | PR ---
[place], [place] PROGRESS NOTE NAME: NINFA LOYOLA UNIT #: [id number] ROOM: 532 DOCTOR: YOLANDE JUSTICE MD BIRTHDATE: [birth year] DOS: 01/07/2018 SUBJECTIVE: The patient is doing well after left big toe amputation. He was other than complaining of some pain, which improved with use of Dilaudid. PHYSICAL EXAMINATION: GENERAL APPEARANCE: The patient is alert and oriented x 3, in no visible distress. VITAL SIGNS: Blood pressure 136/76, heart rate 72 beats per minute, breathing 20 times per minute, temperature 98.3 degrees Fahrenheit. HEENT AND NECK: Exam within normal limits. CARDIOVASCULAR SYSTEM: Heart rate is regular in rate and rhythm. S1 and S2 normally audible. LUNGS: Clear to auscultation. ABDOMEN: Soft, nontender. No obvious organomegaly. Bowel sounds are present. EXTREMITIES: Left big toe amputation. IMPRESSION: 1. Diabetic left big toe which is necrotic, status post amputation by Dr. Miles. Pain is better controlled with Dilaudid. 2. Type 2 diabetes mellitus. Blood sugars are well controlled. 3. Benign essential hypertension, diet-controlled. 4. Centrilobular emphysema, presently asymptomatic. 5. Obesity, BMI of 32.7. The patient is working with dietary. YOLANDE JUSTICE MD CM:PNTRANS [phone] YOLANDE JUSTICE MD 01/08/18 0001 interface
--- NOTE | ~2018-01-05 | O ---
[place], [place] OPERATIVE NOTE NAME: NINFA LOYOLA UNIT #: [id number] ROOM: [facility] DOCTOR: KERWIN MACEDO DO BIRTHDATE: [birth year] DOS: 01/07/2018 PREOPERATIVE DIAGNOSIS: Left hallux osteomyelitis with open ulcer. OPERATION PERFORMED: Left hallux amputation. SURGEON: Ry Caraballo M.D. ALUMNI RELATIONS COORDINATOR: Dr. Agustín Macedo. ANESTHESIA: MAC with 0.5% Sensorcaine used as a digital block. ESTIMATED BLOOD LOSS: Less than 10 mL. COMPLICATIONS: There were no complications. INDICATION: Nonhealing ulcer of left hallux. DESCRIPTION OF PROCEDURE: The patient was brought to the operating room and placed on the operating table in supine position. The patient was draped and prepped in normal sterile technique. The patient had an incision made circumferentially around the left hallux until the proximal metatarsal was palpated directly by the periosteal elevator. Periosteal elevator was then used to make blunt dissection to enter the MTP joint. The soft tissues of the toe were then taken off after blunt dissection was successful. The proximal phalanges was then removed after the capsule was opened using the Bovie. At that time, the Bovie was used for hemostasis. The soft tissue was sent off for culture, Gram stain and the proximal phalanges was sent off for culture and Gram stain as well. Any necrotic tissue was debrided. The incisions were cleaned up. There was a 3-0 Vicryl used for suture ligation of the digital artery. The 3-0 Vicryl was then used as a stay stitch. The wound was then irrigated using 50 mL normal saline, 3-0 Vicryls were then tied, 0 nylon was then used to close the skin, 2 horizontal mattresses were placed, 1 medially, 1 laterally. Two vertical mattresses were placed and then 2 simple interrupted sutures were placed and the wound was then dressed. The patient awoke from the procedure without any complications and transferred to the PACU in stable condition. Agustín Macedo DO [place], [place] OPERATIVE NOTE NAME: NINFA LOYOLA UNIT #: [id number] ROOM: [facility] DOCTOR: KERWIN MACEDO DO BIRTHDATE: [birth year] RY CARABALLO MD CM:OPRECORD:OPERATIVE NOTE [id number] KERWIN MACEDO DO 01/08/18 0000 interface
[~2018-01-05 13:13] MED LIST changes: -METFORMIN500 MG PO; -NEURONTIN300 MG PO; +NEURONTIN800 MG PO; +ZOLOFT100 MG PO; -ZOLOFT50 MG PO
[2018-01-05 13:17] VITALS: BP 151/71
[2018-01-05 13:47] LABS: BASO % 0.5 % (0.0-1.0); EOS # 0.2 10*3/uL (0.0-0.4); EOS % 2.4 % (1.0-4.0); HEMATOCRIT 44.4 % (42.0-52.0); HEMOGLOBIN 14.6 g/dl (14.0-18.0); LYMPH % 23.3 % (27.0-41.0); MEAN CELL VOLUME 99.3 fl (80.0-94.0); MEAN CORPUSCULAR HGB 32.7 pg (27.0-31.0); MEAN CORPUSCULAR HGB CONC 32.9 g/dl (33.0-37.0); MONO # 0.7 10*3/uL (0.1-1.0); MONO % 7.9 % (3.0-9.0); NEUT # 5.5 10*3/uL (2.3-7.9); NEUT % 65.4 % (47.0-73.0); PLATELET COUNT AUTOMATED 253 10*3/uL (130-400); RED BLOOD COUNT 4.47 10*6/uL (4.50-5.90); RED CELL DISTRI WIDTH 12.6 % (0-14.5); WHITE BLOOD COUNT 8.4 10*3/uL (4.8-10.8)
[2018-01-05 13:57] LABS: ACT PARTIAL THROMBO TIME 26.1 SECONDS (20.8-31.5); INTERNATIONAL NORM RATIO 0.9 (2.0-3.5)
[2018-01-05 14:03] LABS: ALBUMIN 3.1 gm/dl (3.1-4.5); ALKALINE PHOSPHATASE 87 U/L (45-117); BUN 16 mg/dl (7-24); CHLORIDE 103 mmol/L (98-107); CREATININE 0.85 mg/dL (0.70-1.30); POTASSIUM 4.3 mmol/L (3.5-5.1); SGOT/AST 17 IU/L (3-35); SGPT/ALT 26 U/L (12-78); SODIUM 138 mmol/L (136-145); TOTAL PROTEIN 8.3 gm/dL (6.4-8.2)
[2018-01-05 14:08] VITALS: BP 137/71
[2018-01-05 14:18] LABS: TROPONIN I < 0.015 ng/ml (<0.045)
[2018-01-05] MEDS ORDERED: FARXIGA10 M1 PO (15:34)
[2018-01-05 16:00] VITALS: BP 150/84
[2018-01-05 20:20] VITALS: BP 142/77
[2018-01-06] VITALS: BP 139/85
[2018-01-06 06:06] LABS: BILIRUBIN NEGATIVE (NEGATIVE); BLOOD NEGATIVE (NEGATIVE); CLARITY CLEAR (CLEAR); COLOR YELLOW (YELLOW); GLUCOSE 3+ (NEGATIVE); KETONE NEGATIVE (NEGATIVE); LEUKO ESTERASE NEGATIVE (NEGATIVE); NITRITE NEGATIVE (NEGATIVE); PH 5.5 (5.0-9.0); UROBILINOGEN 0.2 E.U./dl (0.2-1.0)
[2018-01-06 06:28] LABS: BACTERIA TRACE
[2018-01-06 08:00] VITALS: BP 141/75
[2018-01-06 16:00] VITALS: BP 148/83
[2018-01-06 20:00] VITALS: BP 158/74
[2018-01-07] VITALS (8 sets, daily range): BP systolic 126–158; BP diastolic 61–92
[2018-01-08] VITALS: BP 149/90
[2018-01-08 08:00] VITALS: BP 141/70
[2018-01-08 12:00] VITALS: BP 143/82
[2018-01-08 16:00] VITALS: BP 124/70
[2018-01-08 20:00] VITALS: BP 137/71
[2018-01-09] VITALS: BP 138/72
[2018-01-09 08:00] VITALS: BP 129/69
[2018-01-09 12:00] VITALS: BP 132/73
[2018-01-09 16:00] VITALS: BP 136/76
[2018-01-09] MEDS ORDERED: AUGMENTIN 875-875 MG PO (17:07)
[2018-01-09] MEDS ORDERED: HYDROCODONE-AC1 EAC1 PO (18:31)
== END 2018-01-09 19:26 | disposition home or self-care (01) | DRG 617 ==
LOC: ED 13:13 → 5E 13:51 → EDHOLD 13:51 → 5E 14:13
PROVIDERS: Emergency Medicine
PROC: 0Y6Q0Z0 Detachment at Left 1st Toe, Complete, Open Approach (ICD-10-PCS; principal; 2018-01-07)
DX: E11.621 Type 2 diabetes mellitus with foot ulcer (principal); F33.0 Major depressive disorder, recurrent, mild; M86.8X7 Other osteomyelitis, ankle and foot; L97.524 Non-pressure chronic ulcer of other part of left foot with necrosis of bone; J43.2 Centrilobular emphysema; E66.9 Obesity, unspecified; I10 Essential (primary) hypertension; G89.29 Other chronic pain; M54.9 Dorsalgia, unspecified; F17.210 Nicotine dependence, cigarettes, uncomplicated; E11.42 Type 2 diabetes mellitus with diabetic polyneuropathy; E11.69 Type 2 diabetes mellitus with other specified complication; Z71.6 Tobacco abuse counseling; Z79.899 Other long term (current) drug therapy; Z83.3 Family history of diabetes mellitus; Z83.6 Family history of other diseases of the respiratory system

== ENCOUNTER → 2018-01-16 | Outpatient (CLI) | payer OTHER ==
[~2018-01-16] MED LIST changes: +AUGMENTIN 875-875 MG PO; +HYDROCODONE-AC1 EAC1 PO
[2018-01-16 09:05] LABS: HEMATOCRIT 47.4 % (42.0-52.0); HEMOGLOBIN 15.6 g/dl (14.0-18.0); MEAN CELL VOLUME 98.1 fl (80.0-94.0); MEAN CORPUSCULAR HGB 32.3 pg (27.0-31.0); MEAN CORPUSCULAR HGB CONC 32.9 g/dl (33.0-37.0); MEAN PLATELET VOLUME 9.7 fl (9.6-12.3); RED BLOOD COUNT 4.83 10*6/uL (4.50-5.90); RED CELL DISTRI WIDTH 12.3 % (0-14.5); WHITE BLOOD COUNT 8.7 10*3/uL (4.8-10.8)
[2018-01-16 09:40] LABS: ALBUMIN 3.1 gm/dl (3.1-4.5); ALKALINE PHOSPHATASE 75 U/L (45-117); BUN 19 mg/dl (7-24); CHLORIDE 100 mmol/L (98-107); CHOLESTEROL 175 mg/dL (<200); CPK 88 U/L (39-308); CREATININE 0.84 mg/dL (0.70-1.30); HDL CHOLESTEROL 33 mg/dl (40-60); LDL CHOLESTEROL 99 mg/dL (9-159); POTASSIUM 4.1 mmol/L (3.5-5.1); SGOT/AST 19 IU/L (3-35); SGPT/ALT 30 U/L (12-78); SODIUM 137 mmol/L (136-145); TOTAL PROTEIN 8.6 gm/dL (6.4-8.2); TRIGLYCERIDES 217 mg/dl (<150); VLDL CHOLESTEROL 43 mg/dL (6-40)
== END | disposition home or self-care (01) ==
LOC: WOUNDCARE 02:16 → LAB 02:16 → WOUNDCARE 13:33
PROVIDERS: Family Medicine
DX: E78.00 Pure hypercholesterolemia, unspecified (principal); I10 Essential (primary) hypertension; E11.9 Type 2 diabetes mellitus without complications; L03.90 Cellulitis, unspecified; G62.9 Polyneuropathy, unspecified

== ENCOUNTER → 2018-01-23 | Outpatient (CLI) | payer OTHER | END | disposition home or self-care (01) | LOC: WOUNDCARE 01:28 | DX: T87.89 Other complications of amputation stump (principal); E11.69 Type 2 diabetes mellitus with other specified complication; M86.472 Chronic osteomyelitis with draining sinus, left ankle and foot; E55.9 Vitamin D deficiency, unspecified; I10 Essential (primary) hypertension; J44.9 Chronic obstructive pulmonary disease, unspecified; F17.200 Nicotine dependence, unspecified, uncomplicated; Z89.421 Acquired absence of other right toe(s); Y83.5 Amputation of limb(s) as the cause of abnormal reaction of the patient, or of later complication, without mention of misadventure at the time of the procedure ==

== ENCOUNTER → 2018-01-30 | Outpatient (CLI) | payer OTHER | END | disposition home or self-care (01) | LOC: WOUNDCARE 01:39 | DX: T87.89 Other complications of amputation stump (principal); E11.69 Type 2 diabetes mellitus with other specified complication; M86.8X8 Other osteomyelitis, other site; I10 Essential (primary) hypertension; J44.9 Chronic obstructive pulmonary disease, unspecified; F17.200 Nicotine dependence, unspecified, uncomplicated; Z89.421 Acquired absence of other right toe(s); Y83.5 Amputation of limb(s) as the cause of abnormal reaction of the patient, or of later complication, without mention of misadventure at the time of the procedure ==

== ENCOUNTER → 2018-02-06 | Outpatient (CLI) | payer OTHER | END | disposition home or self-care (01) | LOC: WOUNDCARE 00:23 | DX: T87.89 Other complications of amputation stump (principal); E11.621 Type 2 diabetes mellitus with foot ulcer; L97.521 Non-pressure chronic ulcer of other part of left foot limited to breakdown of skin; E11.69 Type 2 diabetes mellitus with other specified complication; M86.9 Osteomyelitis, unspecified; J44.9 Chronic obstructive pulmonary disease, unspecified; I10 Essential (primary) hypertension; F17.200 Nicotine dependence, unspecified, uncomplicated; Z89.421 Acquired absence of other right toe(s); Y83.5 Amputation of limb(s) as the cause of abnormal reaction of the patient, or of later complication, without mention of misadventure at the time of the procedure ==

== ENCOUNTER → 2018-02-18 | Outpatient (CLI) | payer OTHER | END | disposition home or self-care (01) | LOC: WOUNDCARE 08:25 | DX: T87.89 Other complications of amputation stump (principal); E11.621 Type 2 diabetes mellitus with foot ulcer; L97.521 Non-pressure chronic ulcer of other part of left foot limited to breakdown of skin; J44.9 Chronic obstructive pulmonary disease, unspecified; I10 Essential (primary) hypertension; E11.69 Type 2 diabetes mellitus with other specified complication; M86.8X8 Other osteomyelitis, other site; F17.200 Nicotine dependence, unspecified, uncomplicated; Z89.412 Acquired absence of left great toe; Z89.421 Acquired absence of other right toe(s); Y83.5 Amputation of limb(s) as the cause of abnormal reaction of the patient, or of later complication, without mention of misadventure at the time of the procedure ==

== ENCOUNTER → 2018-02-27 | Outpatient (CLI) | payer OTHER | END | disposition home or self-care (01) | LOC: WOUNDCARE 02:32 | DX: T81.31XD Disruption of external operation (surgical) wound, not elsewhere classified, subsequent encounter (principal); E11.621 Type 2 diabetes mellitus with foot ulcer; L97.521 Non-pressure chronic ulcer of other part of left foot limited to breakdown of skin; E11.69 Type 2 diabetes mellitus with other specified complication; M86.472 Chronic osteomyelitis with draining sinus, left ankle and foot; E55.9 Vitamin D deficiency, unspecified; J44.9 Chronic obstructive pulmonary disease, unspecified; I10 Essential (primary) hypertension; F17.200 Nicotine dependence, unspecified, uncomplicated; Z89.412 Acquired absence of left great toe; Z89.411 Acquired absence of right great toe; Y83.8 Other surgical procedures as the cause of abnormal reaction of the patient, or of later complication, without mention of misadventure at the time of the procedure ==

== ENCOUNTER → 2018-03-06 | Outpatient (CLI) | payer OTHER | END | disposition home or self-care (01) | LOC: WOUNDCARE 01:18 | DX: T87.89 Other complications of amputation stump (principal); E11.621 Type 2 diabetes mellitus with foot ulcer; L97.521 Non-pressure chronic ulcer of other part of left foot limited to breakdown of skin; E11.69 Type 2 diabetes mellitus with other specified complication; M86.8X9 Other osteomyelitis, unspecified sites; I10 Essential (primary) hypertension; J44.9 Chronic obstructive pulmonary disease, unspecified; F17.200 Nicotine dependence, unspecified, uncomplicated; Z89.421 Acquired absence of other right toe(s); Y83.5 Amputation of limb(s) as the cause of abnormal reaction of the patient, or of later complication, without mention of misadventure at the time of the procedure ==

== ENCOUNTER → 2018-03-13 | Outpatient (CLI) | payer OTHER | END | disposition home or self-care (01) | LOC: WOUNDCARE 10:33 | DX: T87.89 Other complications of amputation stump (principal); E11.621 Type 2 diabetes mellitus with foot ulcer; L97.521 Non-pressure chronic ulcer of other part of left foot limited to breakdown of skin; L84 Corns and callosities; E11.69 Type 2 diabetes mellitus with other specified complication; M86.8X8 Other osteomyelitis, other site; I10 Essential (primary) hypertension; J44.9 Chronic obstructive pulmonary disease, unspecified; F17.210 Nicotine dependence, cigarettes, uncomplicated; Z89.412 Acquired absence of left great toe; Z89.421 Acquired absence of other right toe(s); Y83.5 Amputation of limb(s) as the cause of abnormal reaction of the patient, or of later complication, without mention of misadventure at the time of the procedure ==

== ENCOUNTER → 2018-03-20 | Outpatient (CLI) | payer OTHER | END | disposition home or self-care (01) | LOC: WOUNDCARE 03:44 | DX: T87.89 Other complications of amputation stump (principal); E11.621 Type 2 diabetes mellitus with foot ulcer; L97.521 Non-pressure chronic ulcer of other part of left foot limited to breakdown of skin; L84 Corns and callosities; E11.69 Type 2 diabetes mellitus with other specified complication; M86.8X8 Other osteomyelitis, other site; I10 Essential (primary) hypertension; J44.9 Chronic obstructive pulmonary disease, unspecified; F17.200 Nicotine dependence, unspecified, uncomplicated; Z89.421 Acquired absence of other right toe(s); Y83.5 Amputation of limb(s) as the cause of abnormal reaction of the patient, or of later complication, without mention of misadventure at the time of the procedure ==

== ENCOUNTER → 2018-03-27 | Outpatient (CLI) | payer OTHER | END | disposition home or self-care (01) | LOC: WOUNDCARE 03:02 | DX: T87.89 Other complications of amputation stump (principal); E11.621 Type 2 diabetes mellitus with foot ulcer; L97.521 Non-pressure chronic ulcer of other part of left foot limited to breakdown of skin; E11.69 Type 2 diabetes mellitus with other specified complication; M86.8X8 Other osteomyelitis, other site; I10 Essential (primary) hypertension; J44.9 Chronic obstructive pulmonary disease, unspecified; F17.200 Nicotine dependence, unspecified, uncomplicated; Z89.421 Acquired absence of other right toe(s); Y83.5 Amputation of limb(s) as the cause of abnormal reaction of the patient, or of later complication, without mention of misadventure at the time of the procedure ==

== ENCOUNTER → 2018-04-03 | Outpatient (CLI) | payer OTHER | END | disposition home or self-care (01) | LOC: WOUNDCARE 00:39 | DX: T87.89 Other complications of amputation stump (principal); S91.105D Unspecified open wound of left lesser toe(s) without damage to nail, subsequent encounter; E11.69 Type 2 diabetes mellitus with other specified complication; M86.472 Chronic osteomyelitis with draining sinus, left ankle and foot; I10 Essential (primary) hypertension; J44.9 Chronic obstructive pulmonary disease, unspecified; F17.200 Nicotine dependence, unspecified, uncomplicated; Z89.421 Acquired absence of other right toe(s); X58.XXXD Exposure to other specified factors, subsequent encounter; Y83.5 Amputation of limb(s) as the cause of abnormal reaction of the patient, or of later complication, without mention of misadventure at the time of the procedure ==

== ENCOUNTER → 2018-04-10 | Outpatient (CLI) | payer OTHER | END | disposition home or self-care (01) | LOC: WOUNDCARE 11:45 | DX: T81.89XD Other complications of procedures, not elsewhere classified, subsequent encounter (principal); E11.621 Type 2 diabetes mellitus with foot ulcer; L97.521 Non-pressure chronic ulcer of other part of left foot limited to breakdown of skin; E11.69 Type 2 diabetes mellitus with other specified complication; M86.472 Chronic osteomyelitis with draining sinus, left ankle and foot; J44.9 Chronic obstructive pulmonary disease, unspecified; I10 Essential (primary) hypertension; F17.210 Nicotine dependence, cigarettes, uncomplicated; Z89.421 Acquired absence of other right toe(s); Z89.412 Acquired absence of left great toe; Y83.8 Other surgical procedures as the cause of abnormal reaction of the patient, or of later complication, without mention of misadventure at the time of the procedure ==

== ENCOUNTER → 2018-04-17 | Outpatient (CLI) | payer OTHER | END | disposition home or self-care (01) | LOC: WOUNDCARE 01:11 | DX: T87.89 Other complications of amputation stump (principal); E11.621 Type 2 diabetes mellitus with foot ulcer; L97.521 Non-pressure chronic ulcer of other part of left foot limited to breakdown of skin; J44.9 Chronic obstructive pulmonary disease, unspecified; I10 Essential (primary) hypertension; E11.69 Type 2 diabetes mellitus with other specified complication; M86.8X8 Other osteomyelitis, other site; F17.200 Nicotine dependence, unspecified, uncomplicated; Z89.421 Acquired absence of other right toe(s); Y83.5 Amputation of limb(s) as the cause of abnormal reaction of the patient, or of later complication, without mention of misadventure at the time of the procedure ==

== ENCOUNTER → 2018-04-24 | Outpatient (CLI) | payer OTHER | END | disposition home or self-care (01) | LOC: WOUNDCARE 04:44 | DX: T87.89 Other complications of amputation stump (principal); E11.621 Type 2 diabetes mellitus with foot ulcer; L97.521 Non-pressure chronic ulcer of other part of left foot limited to breakdown of skin; L84 Corns and callosities; E11.69 Type 2 diabetes mellitus with other specified complication; M86.472 Chronic osteomyelitis with draining sinus, left ankle and foot; I10 Essential (primary) hypertension; J44.9 Chronic obstructive pulmonary disease, unspecified; F17.200 Nicotine dependence, unspecified, uncomplicated; Z89.421 Acquired absence of other right toe(s); Y83.5 Amputation of limb(s) as the cause of abnormal reaction of the patient, or of later complication, without mention of misadventure at the time of the procedure ==

== ENCOUNTER → 2018-05-01 | Outpatient (CLI) | payer OTHER | END | disposition home or self-care (01) | LOC: WOUNDCARE 01:50 | DX: T87.89 Other complications of amputation stump (principal); E11.621 Type 2 diabetes mellitus with foot ulcer; L97.521 Non-pressure chronic ulcer of other part of left foot limited to breakdown of skin; L84 Corns and callosities; E11.69 Type 2 diabetes mellitus with other specified complication; M86.472 Chronic osteomyelitis with draining sinus, left ankle and foot; I10 Essential (primary) hypertension; J44.9 Chronic obstructive pulmonary disease, unspecified; F17.200 Nicotine dependence, unspecified, uncomplicated; Z89.421 Acquired absence of other right toe(s); Y83.5 Amputation of limb(s) as the cause of abnormal reaction of the patient, or of later complication, without mention of misadventure at the time of the procedure ==

== ENCOUNTER → 2018-05-08 | Outpatient (CLI) | payer OTHER | END | disposition home or self-care (01) | LOC: WOUNDCARE 04:07 | DX: T81.89XD Other complications of procedures, not elsewhere classified, subsequent encounter (principal); E11.621 Type 2 diabetes mellitus with foot ulcer; L97.528 Non-pressure chronic ulcer of other part of left foot with other specified severity; E11.69 Type 2 diabetes mellitus with other specified complication; M86.472 Chronic osteomyelitis with draining sinus, left ankle and foot; I10 Essential (primary) hypertension; J44.9 Chronic obstructive pulmonary disease, unspecified; F17.200 Nicotine dependence, unspecified, uncomplicated; Z89.412 Acquired absence of left great toe; Z89.421 Acquired absence of other right toe(s); Y83.8 Other surgical procedures as the cause of abnormal reaction of the patient, or of later complication, without mention of misadventure at the time of the procedure ==

== ENCOUNTER → 2018-05-09 | Outpatient (CLI) | payer OTHER ==
[2018-05-09 10:32] LABS: HEMATOCRIT 49.9 % (42.0-52.0); HEMOGLOBIN 16.7 g/dl (14.0-18.0); MEAN CELL VOLUME 97.7 fl (80.0-94.0); MEAN CORPUSCULAR HGB 32.7 pg (27.0-31.0); MEAN CORPUSCULAR HGB CONC 33.5 g/dl (33.0-37.0); MEAN PLATELET VOLUME 10.5 fl (9.6-12.3); RED BLOOD COUNT 5.11 10*6/uL (4.50-5.90); RED CELL DISTRI WIDTH 12.9 % (0-14.5); WHITE BLOOD COUNT 6.5 10*3/uL (4.8-10.8)
[2018-05-09 11:01] LABS: ALBUMIN 3.6 gm/dl (3.1-4.5); ALKALINE PHOSPHATASE 58 U/L (45-117); BUN 24 mg/dl (7-24); CHLORIDE 105 mmol/L (98-107); CHOLESTEROL 192 mg/dL (<200); CPK 179 U/L (39-308); CREATININE 0.85 mg/dL (0.70-1.30); HDL CHOLESTEROL 42 mg/dl (40-60); LDL CHOLESTEROL 115 mg/dL (9-159); POTASSIUM 4.2 mmol/L (3.5-5.1); SGOT/AST 17 IU/L (3-35); SGPT/ALT 35 U/L (12-78); SODIUM 139 mmol/L (136-145); TOTAL PROTEIN 8.2 gm/dL (6.4-8.2); TRIGLYCERIDES 175 mg/dl (<150); VLDL CHOLESTEROL 35 mg/dL (6-40)
[2018-05-11 18:03] LABS: TESTOSTERONE FREE, (DIRECT) 9.9 pg/mL (6.8-21.5)
== END | disposition home or self-care (01) ==
LOC: LAB 10:17
PROVIDERS: Family Medicine
DX: I10 Essential (primary) hypertension (principal); E11.9 Type 2 diabetes mellitus without complications; E78.00 Pure hypercholesterolemia, unspecified; F41.1 Generalized anxiety disorder; N52.9 Male erectile dysfunction, unspecified

== ENCOUNTER → 2018-05-13 | Outpatient (CLI) | payer OTHER | END | disposition home or self-care (01) | LOC: WOUNDCARE 02:42 | DX: T87.89 Other complications of amputation stump (principal); E11.69 Type 2 diabetes mellitus with other specified complication; M86.472 Chronic osteomyelitis with draining sinus, left ankle and foot; I10 Essential (primary) hypertension; J44.9 Chronic obstructive pulmonary disease, unspecified; Z89.421 Acquired absence of other right toe(s); F17.200 Nicotine dependence, unspecified, uncomplicated; Y83.5 Amputation of limb(s) as the cause of abnormal reaction of the patient, or of later complication, without mention of misadventure at the time of the procedure ==

== ENCOUNTER → 2018-05-19 | Outpatient (CLI) | payer OTHER | END | disposition home or self-care (01) | LOC: RAD 15:44 | DX: M25.461 Effusion, right knee (principal) ==

== ENCOUNTER → 2018-06-10 | Outpatient (CLI) | payer OTHER | END | disposition home or self-care (01) | LOC: WOUNDCARE 03:30 | DX: T81.89XD Other complications of procedures, not elsewhere classified, subsequent encounter (principal); E11.69 Type 2 diabetes mellitus with other specified complication; M86.472 Chronic osteomyelitis with draining sinus, left ankle and foot; J44.9 Chronic obstructive pulmonary disease, unspecified; I10 Essential (primary) hypertension; F17.200 Nicotine dependence, unspecified, uncomplicated; Z89.412 Acquired absence of left great toe; Y83.8 Other surgical procedures as the cause of abnormal reaction of the patient, or of later complication, without mention of misadventure at the time of the procedure ==

== ENCOUNTER → 2018-06-24 | Outpatient (CLI) | payer OTHER | END | disposition home or self-care (01) | LOC: WOUNDCARE 06-20 10:28 | DX: T81.89XD Other complications of procedures, not elsewhere classified, subsequent encounter (principal); E11.69 Type 2 diabetes mellitus with other specified complication; M86.472 Chronic osteomyelitis with draining sinus, left ankle and foot; J44.9 Chronic obstructive pulmonary disease, unspecified; I10 Essential (primary) hypertension; F17.200 Nicotine dependence, unspecified, uncomplicated; Z89.412 Acquired absence of left great toe; Y83.8 Other surgical procedures as the cause of abnormal reaction of the patient, or of later complication, without mention of misadventure at the time of the procedure ==

== ENCOUNTER → 2018-07-01 | Outpatient (CLI) | payer OTHER | END | disposition home or self-care (01) | LOC: WOUNDCARE 02:22 | DX: T87.89 Other complications of amputation stump (principal); E11.69 Type 2 diabetes mellitus with other specified complication; M86.472 Chronic osteomyelitis with draining sinus, left ankle and foot; L84 Corns and callosities; I10 Essential (primary) hypertension; J44.9 Chronic obstructive pulmonary disease, unspecified; F17.200 Nicotine dependence, unspecified, uncomplicated; Y83.5 Amputation of limb(s) as the cause of abnormal reaction of the patient, or of later complication, without mention of misadventure at the time of the procedure ==

== ENCOUNTER → 2018-07-08 | Outpatient (CLI) | payer OTHER | END | disposition home or self-care (01) | LOC: WOUNDCARE 03:55 | DX: T87.89 Other complications of amputation stump (principal); E11.69 Type 2 diabetes mellitus with other specified complication; M86.472 Chronic osteomyelitis with draining sinus, left ankle and foot; L84 Corns and callosities; I10 Essential (primary) hypertension; J44.9 Chronic obstructive pulmonary disease, unspecified; F17.200 Nicotine dependence, unspecified, uncomplicated; Z89.421 Acquired absence of other right toe(s); Y83.5 Amputation of limb(s) as the cause of abnormal reaction of the patient, or of later complication, without mention of misadventure at the time of the procedure ==

== ENCOUNTER → 2018-07-15 | Outpatient (CLI) | payer OTHER | END | disposition home or self-care (01) | LOC: WOUNDCARE 00:35 | DX: T87.89 Other complications of amputation stump (principal); E11.69 Type 2 diabetes mellitus with other specified complication; M86.472 Chronic osteomyelitis with draining sinus, left ankle and foot; L84 Corns and callosities; I10 Essential (primary) hypertension; J44.9 Chronic obstructive pulmonary disease, unspecified; F17.200 Nicotine dependence, unspecified, uncomplicated; Z89.421 Acquired absence of other right toe(s) ==

== ENCOUNTER → 2018-07-22 | Outpatient (CLI) | payer OTHER | END | disposition home or self-care (01) | LOC: WOUNDCARE 04:20 | DX: T87.89 Other complications of amputation stump (principal); E11.69 Type 2 diabetes mellitus with other specified complication; M86.472 Chronic osteomyelitis with draining sinus, left ankle and foot; I10 Essential (primary) hypertension; J44.9 Chronic obstructive pulmonary disease, unspecified; F17.200 Nicotine dependence, unspecified, uncomplicated; Z89.421 Acquired absence of other right toe(s); Y83.5 Amputation of limb(s) as the cause of abnormal reaction of the patient, or of later complication, without mention of misadventure at the time of the procedure ==

== ENCOUNTER → 2018-07-31 | Outpatient (CLI) | payer OTHER | END | disposition home or self-care (01) | LOC: WOUNDCARE 03:33 | DX: T87.89 Other complications of amputation stump (principal); E11.69 Type 2 diabetes mellitus with other specified complication; M86.472 Chronic osteomyelitis with draining sinus, left ankle and foot; I10 Essential (primary) hypertension; J44.9 Chronic obstructive pulmonary disease, unspecified; F17.200 Nicotine dependence, unspecified, uncomplicated; Z89.421 Acquired absence of other right toe(s); Y83.5 Amputation of limb(s) as the cause of abnormal reaction of the patient, or of later complication, without mention of misadventure at the time of the procedure ==

== ENCOUNTER → 2018-08-07 | Outpatient (CLI) | payer OTHER | END | disposition home or self-care (01) | LOC: WOUNDCARE 02:45 | DX: T87.89 Other complications of amputation stump (principal); E11.69 Type 2 diabetes mellitus with other specified complication; M86.472 Chronic osteomyelitis with draining sinus, left ankle and foot; L84 Corns and callosities; I10 Essential (primary) hypertension; J44.9 Chronic obstructive pulmonary disease, unspecified; F17.200 Nicotine dependence, unspecified, uncomplicated; Z89.421 Acquired absence of other right toe(s); Y83.5 Amputation of limb(s) as the cause of abnormal reaction of the patient, or of later complication, without mention of misadventure at the time of the procedure ==

== ENCOUNTER → 2018-08-14 | Outpatient (CLI) | payer OTHER | END | disposition home or self-care (01) | LOC: WOUNDCARE 03:07 | DX: T87.89 Other complications of amputation stump (principal); E11.69 Type 2 diabetes mellitus with other specified complication; M86.472 Chronic osteomyelitis with draining sinus, left ankle and foot; I10 Essential (primary) hypertension; J44.9 Chronic obstructive pulmonary disease, unspecified; F17.200 Nicotine dependence, unspecified, uncomplicated; Z89.421 Acquired absence of other right toe(s); Y83.5 Amputation of limb(s) as the cause of abnormal reaction of the patient, or of later complication, without mention of misadventure at the time of the procedure ==

== ENCOUNTER → 2018-08-21 | Outpatient (CLI) | payer OTHER ==
[2018-08-21 09:57] LABS: BASO # 0.1 10*3/uL (0.0-0.1); BASO % 0.6 % (0.0-1.0); EOS # 0.3 10*3/uL (0.0-0.4); EOS % 3.1 % (1.0-4.0); HEMATOCRIT 47.8 % (42.0-52.0); LYMPH # 2.2 10*3/uL (1.3-4.4); LYMPH % 27.8 % (27.0-41.0); MEAN CELL VOLUME 99.4 fl (80.0-94.0); MEAN CORPUSCULAR HGB 33.3 pg (27.0-31.0); MEAN CORPUSCULAR HGB CONC 33.5 g/dl (33.0-37.0); MEAN PLATELET VOLUME 10.4 fl (9.6-12.3); MONO # 0.5 10*3/uL (0.1-1.0); MONO % 6.3 % (3.0-9.0); NEUT % 61.8 % (47.0-73.0); PLATELET COUNT AUTOMATED 169 10*3/uL (130-400); RED BLOOD COUNT 4.81 10*6/uL (4.50-5.90); RED CELL DISTRI WIDTH 13.8 % (0-14.5); WHITE BLOOD COUNT 8.1 10*3/uL (4.8-10.8)
[2018-08-21 10:24] LABS: ALBUMIN 3.7 gm/dl (3.1-4.5); ALKALINE PHOSPHATASE 54 U/L (45-117); BUN 24 mg/dl (7-24); CHLORIDE 106 mmol/L (98-107); POTASSIUM 4.3 mmol/L (3.5-5.1); SGOT/AST 20 IU/L (3-35); SGPT/ALT 26 U/L (12-78); SODIUM 139 mmol/L (136-145); TOTAL PROTEIN 8.5 gm/dL (6.4-8.2)
== END | disposition home or self-care (01) ==
LOC: LAB 03:27 → WOUNDCARE 03:27
DX: T81.89XD Other complications of procedures, not elsewhere classified, subsequent encounter (principal); E11.69 Type 2 diabetes mellitus with other specified complication; M86.472 Chronic osteomyelitis with draining sinus, left ankle and foot; J44.9 Chronic obstructive pulmonary disease, unspecified; I10 Essential (primary) hypertension; F17.200 Nicotine dependence, unspecified, uncomplicated; Z89.421 Acquired absence of other right toe(s); Y83.8 Other surgical procedures as the cause of abnormal reaction of the patient, or of later complication, without mention of misadventure at the time of the procedure

== ENCOUNTER → 2018-08-28 | Outpatient (CLI) | payer OTHER | END | disposition home or self-care (01) | LOC: WOUNDCARE 02:20 | DX: T87.89 Other complications of amputation stump (principal); E11.69 Type 2 diabetes mellitus with other specified complication; M86.472 Chronic osteomyelitis with draining sinus, left ankle and foot; I10 Essential (primary) hypertension; J44.9 Chronic obstructive pulmonary disease, unspecified; F17.200 Nicotine dependence, unspecified, uncomplicated; Z89.421 Acquired absence of other right toe(s); Y83.5 Amputation of limb(s) as the cause of abnormal reaction of the patient, or of later complication, without mention of misadventure at the time of the procedure ==

== ENCOUNTER → 2018-09-01 | Outpatient (CLI) | payer OTHER ==
[2018-09-01 12:42] LABS: BASO % 0.3 % (0.0-1.0); EOS # 0.2 10*3/uL (0.0-0.4); EOS % 2.5 % (1.0-4.0); HEMATOCRIT 50.5 % (42.0-52.0); HEMOGLOBIN 16.5 g/dl (14.0-18.0); LYMPH # 2.6 10*3/uL (1.3-4.4); LYMPH % 29.4 % (27.0-41.0); MEAN CELL VOLUME 99.8 fl (80.0-94.0); MEAN CORPUSCULAR HGB 32.6 pg (27.0-31.0); MEAN CORPUSCULAR HGB CONC 32.7 g/dl (33.0-37.0); MONO # 0.5 10*3/uL (0.1-1.0); MONO % 6.1 % (3.0-9.0); NEUT # 5.3 10*3/uL (2.3-7.9); NEUT % 61.4 % (47.0-73.0); PLATELET COUNT AUTOMATED 174 10*3/uL (130-400); RED BLOOD COUNT 5.06 10*6/uL (4.50-5.90); WHITE BLOOD COUNT 8.7 10*3/uL (4.8-10.8)
[2018-09-01 13:03] LABS: CREATININE 0.89 mg/dL (0.70-1.30); VANCOMYCIN TROUGH 3.8 ug/mL (10-20)
== END | disposition home or self-care (01) ==
LOC: WOUNDCARE 08:59
DX: T87.89 Other complications of amputation stump (principal); E11.69 Type 2 diabetes mellitus with other specified complication; M86.472 Chronic osteomyelitis with draining sinus, left ankle and foot; J44.9 Chronic obstructive pulmonary disease, unspecified; I10 Essential (primary) hypertension; F17.200 Nicotine dependence, unspecified, uncomplicated; Z89.421 Acquired absence of other right toe(s); Y83.5 Amputation of limb(s) as the cause of abnormal reaction of the patient, or of later complication, without mention of misadventure at the time of the procedure

== ENCOUNTER → 2018-09-02 | Outpatient (CLI) | payer OTHER | END | disposition home or self-care (01) | LOC: WOUNDCARE 02:49 | DX: T87.89 Other complications of amputation stump (principal); E11.69 Type 2 diabetes mellitus with other specified complication; M86.472 Chronic osteomyelitis with draining sinus, left ankle and foot; I10 Essential (primary) hypertension; J44.9 Chronic obstructive pulmonary disease, unspecified; F17.200 Nicotine dependence, unspecified, uncomplicated; Z89.421 Acquired absence of other right toe(s); Y83.5 Amputation of limb(s) as the cause of abnormal reaction of the patient, or of later complication, without mention of misadventure at the time of the procedure ==

== ENCOUNTER → 2018-09-03 | Outpatient (CLI) | payer OTHER | END | disposition home or self-care (01) | LOC: WOUNDCARE 04:12 | DX: T87.89 Other complications of amputation stump (principal); E11.69 Type 2 diabetes mellitus with other specified complication; M86.472 Chronic osteomyelitis with draining sinus, left ankle and foot; I10 Essential (primary) hypertension; J44.9 Chronic obstructive pulmonary disease, unspecified; F17.200 Nicotine dependence, unspecified, uncomplicated; Z89.421 Acquired absence of other right toe(s); Y83.5 Amputation of limb(s) as the cause of abnormal reaction of the patient, or of later complication, without mention of misadventure at the time of the procedure ==

== ENCOUNTER → 2018-09-04 | Outpatient (CLI) | payer OTHER | END | disposition home or self-care (01) | LOC: WOUNDCARE 00:59 | DX: T87.89 Other complications of amputation stump (principal); E11.69 Type 2 diabetes mellitus with other specified complication; M86.472 Chronic osteomyelitis with draining sinus, left ankle and foot; I10 Essential (primary) hypertension; J44.9 Chronic obstructive pulmonary disease, unspecified; F17.200 Nicotine dependence, unspecified, uncomplicated; Z89.421 Acquired absence of other right toe(s); Y83.5 Amputation of limb(s) as the cause of abnormal reaction of the patient, or of later complication, without mention of misadventure at the time of the procedure ==

== ENCOUNTER → 2018-09-08 | Outpatient (CLI) | payer OTHER ==
[2018-09-08 10:52] LABS: BASO % 0.6 % (0.0-1.0); EOS # 0.3 10*3/uL (0.0-0.4); EOS % 4.2 % (1.0-4.0); HEMATOCRIT 46.9 % (42.0-52.0); HEMOGLOBIN 15.7 g/dl (14.0-18.0); LYMPH # 2.1 10*3/uL (1.3-4.4); LYMPH % 33.6 % (27.0-41.0); MEAN CELL VOLUME 100.4 fl (80.0-94.0); MEAN CORPUSCULAR HGB 33.6 pg (27.0-31.0); MEAN CORPUSCULAR HGB CONC 33.5 g/dl (33.0-37.0); MEAN PLATELET VOLUME 10.4 fl (9.6-12.3); MONO # 0.5 10*3/uL (0.1-1.0); MONO % 8.2 % (3.0-9.0); NEUT # 3.3 10*3/uL (2.3-7.9); NEUT % 53.1 % (47.0-73.0); PLATELET COUNT AUTOMATED 168 10*3/uL (130-400); RED BLOOD COUNT 4.67 10*6/uL (4.50-5.90); RED CELL DISTRI WIDTH 13.1 % (0-14.5); WHITE BLOOD COUNT 6.2 10*3/uL (4.8-10.8)
[2018-09-08 11:02] LABS: CREATININE 0.86 mg/dL (0.70-1.30); VANCOMYCIN TROUGH 12.8 ug/mL (10-20)
== END | disposition home or self-care (01) ==
LOC: WOUNDCARE 02:14 → LAB 02:14 → WOUNDCARE 09:46
DX: S91.302D Unspecified open wound, left foot, subsequent encounter (principal); M86.472 Chronic osteomyelitis with draining sinus, left ankle and foot; Z89.412 Acquired absence of left great toe

== ENCOUNTER → 2018-09-15 | Outpatient (CLI) | payer OTHER ==
[2018-09-15 11:35] VITALS: BP 150/82
[2018-09-15 12:54] LABS: BASO # 0.1 10*3/uL (0.0-0.1); BASO % 0.6 % (0.0-1.0); EOS # 0.2 10*3/uL (0.0-0.4); EOS % 2.5 % (1.0-4.0); HEMATOCRIT 50.4 % (42.0-52.0); HEMOGLOBIN 16.9 g/dl (14.0-18.0); LYMPH # 2.7 10*3/uL (1.3-4.4); MEAN CELL VOLUME 98.8 fl (80.0-94.0); MEAN CORPUSCULAR HGB 33.1 pg (27.0-31.0); MEAN CORPUSCULAR HGB CONC 33.5 g/dl (33.0-37.0); MEAN PLATELET VOLUME 10.4 fl (9.6-12.3); MONO # 0.7 10*3/uL (0.1-1.0); MONO % 8.6 % (3.0-9.0); NEUT # 4.6 10*3/uL (2.3-7.9); NEUT % 55.1 % (47.0-73.0); PLATELET COUNT AUTOMATED 179 10*3/uL (130-400); RED CELL DISTRI WIDTH 12.8 % (0-14.5); WHITE BLOOD COUNT 8.3 10*3/uL (4.8-10.8)
[2018-09-15 13:10] LABS: VANCOMYCIN TROUGH 1.2 ug/mL (10-20)
== END | disposition home or self-care (01) ==
LOC: LAB 03:57 → PICC 03:57 → US 03:57
DX: S91.302D Unspecified open wound, left foot, subsequent encounter (principal); M86.472 Chronic osteomyelitis with draining sinus, left ankle and foot; M79.672 Pain in left foot; X58.XXXD Exposure to other specified factors, subsequent encounter

== ENCOUNTER → 2018-09-16 | Outpatient (CLI) | payer OTHER | END | disposition home or self-care (01) | LOC: WOUNDCARE 01:13 | DX: T87.89 Other complications of amputation stump (principal); E11.69 Type 2 diabetes mellitus with other specified complication; M86.472 Chronic osteomyelitis with draining sinus, left ankle and foot; E11.40 Type 2 diabetes mellitus with diabetic neuropathy, unspecified; I10 Essential (primary) hypertension; J44.9 Chronic obstructive pulmonary disease, unspecified; F17.200 Nicotine dependence, unspecified, uncomplicated; Z89.421 Acquired absence of other right toe(s); Y83.5 Amputation of limb(s) as the cause of abnormal reaction of the patient, or of later complication, without mention of misadventure at the time of the procedure ==

== ENCOUNTER → 2018-09-17 | Outpatient (CLI) | payer OTHER | END | disposition home or self-care (01) | LOC: WOUNDCARE 04:42 | DX: T87.89 Other complications of amputation stump (principal); E11.69 Type 2 diabetes mellitus with other specified complication; M86.472 Chronic osteomyelitis with draining sinus, left ankle and foot; E11.40 Type 2 diabetes mellitus with diabetic neuropathy, unspecified; I10 Essential (primary) hypertension; J44.9 Chronic obstructive pulmonary disease, unspecified; F17.290 Nicotine dependence, other tobacco product, uncomplicated; Z89.421 Acquired absence of other right toe(s); Y83.5 Amputation of limb(s) as the cause of abnormal reaction of the patient, or of later complication, without mention of misadventure at the time of the procedure ==

== ENCOUNTER → 2018-09-18 | Outpatient (CLI) | payer OTHER | END | disposition home or self-care (01) | LOC: WOUNDCARE 01:20 | DX: T87.89 Other complications of amputation stump (principal); E11.69 Type 2 diabetes mellitus with other specified complication; M86.472 Chronic osteomyelitis with draining sinus, left ankle and foot; E11.40 Type 2 diabetes mellitus with diabetic neuropathy, unspecified; L84 Corns and callosities; I10 Essential (primary) hypertension; J44.9 Chronic obstructive pulmonary disease, unspecified; F17.200 Nicotine dependence, unspecified, uncomplicated; Z89.421 Acquired absence of other right toe(s); Y83.5 Amputation of limb(s) as the cause of abnormal reaction of the patient, or of later complication, without mention of misadventure at the time of the procedure ==

== ENCOUNTER → 2018-09-19 | Outpatient (CLI) | payer OTHER | END | disposition home or self-care (01) | LOC: WOUNDCARE 02:59 | DX: T87.89 Other complications of amputation stump (principal); E11.69 Type 2 diabetes mellitus with other specified complication; M86.472 Chronic osteomyelitis with draining sinus, left ankle and foot; E11.40 Type 2 diabetes mellitus with diabetic neuropathy, unspecified; I10 Essential (primary) hypertension; J44.9 Chronic obstructive pulmonary disease, unspecified; F17.200 Nicotine dependence, unspecified, uncomplicated; Z89.421 Acquired absence of other right toe(s); Y83.5 Amputation of limb(s) as the cause of abnormal reaction of the patient, or of later complication, without mention of misadventure at the time of the procedure ==

== ENCOUNTER → 2018-09-26 | Outpatient (CLI) | payer BC ==
[2018-09-26 08:36] LABS: BASO # 0.1 10*3/uL (0.0-0.1); BASO % 0.6 % (0.0-1.0); EOS # 0.3 10*3/uL (0.0-0.4); EOS % 3.5 % (1.0-4.0); HEMATOCRIT 49.9 % (42.0-52.0); HEMOGLOBIN 16.3 g/dl (14.0-18.0); LYMPH # 2.7 10*3/uL (1.3-4.4); LYMPH % 31.3 % (27.0-41.0); MEAN CORPUSCULAR HGB 32.7 pg (27.0-31.0); MEAN CORPUSCULAR HGB CONC 32.7 g/dl (33.0-37.0); MONO # 0.8 10*3/uL (0.1-1.0); MONO % 8.8 % (3.0-9.0); NEUT # 4.8 10*3/uL (2.3-7.9); NEUT % 55.6 % (47.0-73.0); PLATELET COUNT AUTOMATED 168 10*3/uL (130-400); RED BLOOD COUNT 4.99 10*6/uL (4.50-5.90); RED CELL DISTRI WIDTH 12.5 % (0-14.5); WHITE BLOOD COUNT 8.6 10*3/uL (4.8-10.8)
[2018-09-26 09:06] LABS: CREATININE 0.87 mg/dL (0.70-1.30); VANCOMYCIN TROUGH 13.4 ug/mL (10-20)
== END | disposition home or self-care (01) ==
LOC: LAB 07:55
DX: T87.89 Other complications of amputation stump (principal); E11.69 Type 2 diabetes mellitus with other specified complication; M86.472 Chronic osteomyelitis with draining sinus, left ankle and foot; L84 Corns and callosities; E11.40 Type 2 diabetes mellitus with diabetic neuropathy, unspecified; I10 Essential (primary) hypertension; J44.9 Chronic obstructive pulmonary disease, unspecified; F17.200 Nicotine dependence, unspecified, uncomplicated; Z89.421 Acquired absence of other right toe(s); Y83.5 Amputation of limb(s) as the cause of abnormal reaction of the patient, or of later complication, without mention of misadventure at the time of the procedure

== ENCOUNTER → 2018-09-29 | Outpatient (CLI) | payer BC ==
[2018-09-29 10:50] LABS: BASO # 0.1 10*3/uL (0.0-0.1); BASO % 0.6 % (0.0-1.0); EOS # 0.3 10*3/uL (0.0-0.4); EOS % 3.6 % (1.0-4.0); HEMATOCRIT 47.3 % (42.0-52.0); HEMOGLOBIN 15.9 g/dl (14.0-18.0); LYMPH # 3.1 10*3/uL (1.3-4.4); LYMPH % 38.4 % (27.0-41.0); MEAN CELL VOLUME 98.3 fl (80.0-94.0); MEAN CORPUSCULAR HGB 33.1 pg (27.0-31.0); MEAN CORPUSCULAR HGB CONC 33.6 g/dl (33.0-37.0); MEAN PLATELET VOLUME 10.1 fl (9.6-12.3); MONO # 0.7 10*3/uL (0.1-1.0); MONO % 9.1 % (3.0-9.0); NEUT # 3.9 10*3/uL (2.3-7.9); NEUT % 48.1 % (47.0-73.0); PLATELET COUNT AUTOMATED 167 10*3/uL (130-400); RED BLOOD COUNT 4.81 10*6/uL (4.50-5.90); RED CELL DISTRI WIDTH 12.5 % (0-14.5); WHITE BLOOD COUNT 8.2 10*3/uL (4.8-10.8)
[2018-09-29 11:03] LABS: CREATININE 0.86 mg/dL (0.70-1.30)
[2018-09-29 11:04] LABS: VANCOMYCIN TROUGH 17.5 ug/mL (10-20)
== END | disposition home or self-care (01) ==
LOC: LAB 10:26
DX: S91.302D Unspecified open wound, left foot, subsequent encounter (principal); M86.472 Chronic osteomyelitis with draining sinus, left ankle and foot; M79.672 Pain in left foot; Z89.412 Acquired absence of left great toe; X58.XXXD Exposure to other specified factors, subsequent encounter

== ENCOUNTER → 2018-09-29 | Outpatient (CLI) | payer BC | END | disposition home or self-care (01) | LOC: WOUNDCARE 02:16 → RESCLI 11:09 → WOUNDCARE 13:28 | DX: T87.89 Other complications of amputation stump (principal); E11.69 Type 2 diabetes mellitus with other specified complication; M86.472 Chronic osteomyelitis with draining sinus, left ankle and foot; E11.40 Type 2 diabetes mellitus with diabetic neuropathy, unspecified; I10 Essential (primary) hypertension; J44.9 Chronic obstructive pulmonary disease, unspecified; F17.200 Nicotine dependence, unspecified, uncomplicated; Z89.421 Acquired absence of other right toe(s); Y83.5 Amputation of limb(s) as the cause of abnormal reaction of the patient, or of later complication, without mention of misadventure at the time of the procedure ==

== ENCOUNTER → 2018-09-30 | Outpatient (CLI) | payer BC | END | disposition home or self-care (01) | LOC: WOUNDCARE 03:20 | DX: T87.89 Other complications of amputation stump (principal); E11.69 Type 2 diabetes mellitus with other specified complication; M86.472 Chronic osteomyelitis with draining sinus, left ankle and foot; I10 Essential (primary) hypertension; J44.9 Chronic obstructive pulmonary disease, unspecified; F17.200 Nicotine dependence, unspecified, uncomplicated; Z89.421 Acquired absence of other right toe(s); Y83.5 Amputation of limb(s) as the cause of abnormal reaction of the patient, or of later complication, without mention of misadventure at the time of the procedure ==

== ENCOUNTER → 2018-10-01 | Outpatient (CLI) | payer BC | END | disposition home or self-care (01) | LOC: WOUNDCARE 02:32 | DX: S91.302D Unspecified open wound, left foot, subsequent encounter (principal); E11.69 Type 2 diabetes mellitus with other specified complication; M86.472 Chronic osteomyelitis with draining sinus, left ankle and foot; E11.40 Type 2 diabetes mellitus with diabetic neuropathy, unspecified; I10 Essential (primary) hypertension; J44.9 Chronic obstructive pulmonary disease, unspecified; F17.200 Nicotine dependence, unspecified, uncomplicated; Z89.412 Acquired absence of left great toe; Z89.421 Acquired absence of other right toe(s); X58.XXXD Exposure to other specified factors, subsequent encounter ==

== ENCOUNTER → 2018-10-02 | Outpatient (CLI) | payer BC | END | disposition home or self-care (01) | LOC: WOUNDCARE 01:22 | DX: T87.89 Other complications of amputation stump (principal); E11.69 Type 2 diabetes mellitus with other specified complication; M86.472 Chronic osteomyelitis with draining sinus, left ankle and foot; E11.40 Type 2 diabetes mellitus with diabetic neuropathy, unspecified; I10 Essential (primary) hypertension; J44.9 Chronic obstructive pulmonary disease, unspecified; F17.200 Nicotine dependence, unspecified, uncomplicated; Z89.421 Acquired absence of other right toe(s); Y83.5 Amputation of limb(s) as the cause of abnormal reaction of the patient, or of later complication, without mention of misadventure at the time of the procedure ==

== ENCOUNTER → 2018-10-03 | Outpatient (CLI) | payer BC | END | disposition home or self-care (01) | LOC: WOUNDCARE 03:32 | DX: S91.302D Unspecified open wound, left foot, subsequent encounter (principal); E11.69 Type 2 diabetes mellitus with other specified complication; M86.472 Chronic osteomyelitis with draining sinus, left ankle and foot; E11.40 Type 2 diabetes mellitus with diabetic neuropathy, unspecified; I10 Essential (primary) hypertension; J44.9 Chronic obstructive pulmonary disease, unspecified; F17.200 Nicotine dependence, unspecified, uncomplicated; Z89.412 Acquired absence of left great toe; Z89.421 Acquired absence of other right toe(s); X58.XXXD Exposure to other specified factors, subsequent encounter ==

== ENCOUNTER → 2018-10-07 | Day surgery (SDC) | payer BC ==
[2018-10-03 11:36] VITALS: BP 149/78
[2018-10-03 13:43] LABS: BUN 28 mg/dl (7-24); CHLORIDE 99 mmol/L (98-107); CREATININE 1.05 mg/dL (0.70-1.30); POTASSIUM 4.4 mmol/L (3.5-5.1); SODIUM 138 mmol/L (136-145)
[2018-10-03 13:44] LABS: BASO % 0.5 % (0.0-1.0); EOS # 0.1 10*3/uL (0.0-0.4); EOS % 0.8 % (1.0-4.0); HEMATOCRIT 48.3 % (42.0-52.0); HEMOGLOBIN 16.1 g/dl (14.0-18.0); LYMPH # 1.6 10*3/uL (1.3-4.4); LYMPH % 19.3 % (27.0-41.0); MEAN CELL VOLUME 97.6 fl (80.0-94.0); MEAN CORPUSCULAR HGB 32.5 pg (27.0-31.0); MEAN CORPUSCULAR HGB CONC 33.3 g/dl (33.0-37.0); MEAN PLATELET VOLUME 10.8 fl (9.6-12.3); MONO # 0.4 10*3/uL (0.1-1.0); MONO % 4.5 % (3.0-9.0); NEUT # 6.2 10*3/uL (2.3-7.9); NEUT % 74.4 % (47.0-73.0); PLATELET COUNT AUTOMATED 173 10*3/uL (130-400); RED BLOOD COUNT 4.95 10*6/uL (4.50-5.90); RED CELL DISTRI WIDTH 12.6 % (0-14.5); WHITE BLOOD COUNT 8.4 10*3/uL (4.8-10.8)
[~2018-10-07] VITALS: Ht 180.3 cm; Wt 106.6 kg
[~2018-10-07] MED LIST changes: +Ipratropium Brom3 ML NEB; +VICODIN 5-3001 EACH PO
--- NOTE | ~2018-10-07 | EKG ---
[place], [place] ELECTROCARDIOGRAM REPORT NAME: NINFA LOYOLA UNIT #: [id number] ROOM: DOCTOR: EPIPHANY DRAFT REPORT BIRTHDATE: [birth year] [facility] Test Date: 2018-10-03 Test Time: 12:57:52 Pat Name: NINFA LOYOLA Department: Room: Gender: Principal Cloud Architect: : 1970 Requested By: RY CARABALLO Order Number: [id number] Reading MD: Darrion Gomez MD Measurements Intervals [place] Rate: 78 P: 61 AL: 144 QRS: 36 QRSD: 102 T: 46 QT: 416 QTc: 474 Interpretive Statements Sinus rhythm Probable left atrial enlargement Compared to ECG 08/28/2018 15:04:45 No significant changes Electronically Signed On 10-06-2018 12:30:25 PST by Darrion Gomez MD CM:EKGRPT:ELECTROCARDIOGRAM REPORT [id number] 1230 RY CARABALLO MD EPIPHANY DRAFT REPORT RY CARABALLO MD
[2018-10-07 11:43] VITALS: BP 169/94
[2018-10-07 14:22] VITALS: BP 148/91
[2018-10-07 14:37] VITALS: BP 132/90
[2018-10-07 14:52] VITALS: BP 147/96
[2018-10-07 15:07] VITALS: BP 167/92
[2018-10-07 15:21] VITALS: BP 149/87
== END | disposition home or self-care (01) ==
LOC: SDC 10-03 12:30
DX: E11.69 Type 2 diabetes mellitus with other specified complication (principal); M86.672 Other chronic osteomyelitis, left ankle and foot; I10 Essential (primary) hypertension; K21.9 Gastro-esophageal reflux disease without esophagitis; F32.9 Major depressive disorder, single episode, unspecified; J43.8 Other emphysema; F10.10 Alcohol abuse, uncomplicated; F15.21 Other stimulant dependence, in remission; F17.210 Nicotine dependence, cigarettes, uncomplicated; Z98.890 Other specified postprocedural states; Z83.3 Family history of diabetes mellitus

== ENCOUNTER → 2018-10-09 | Outpatient (CLI) | payer BC ==
[~2018-10-09] MED LIST changes: -Ipratropium Brom3 ML NEB; -VICODIN 5-3001 EACH PO
== END | disposition home or self-care (01) ==
LOC: WOUNDCARE 04:12
DX: T87.89 Other complications of amputation stump (principal); E11.69 Type 2 diabetes mellitus with other specified complication; M86.472 Chronic osteomyelitis with draining sinus, left ankle and foot; E11.40 Type 2 diabetes mellitus with diabetic neuropathy, unspecified; I10 Essential (primary) hypertension; J44.9 Chronic obstructive pulmonary disease, unspecified; F17.200 Nicotine dependence, unspecified, uncomplicated; Z89.421 Acquired absence of other right toe(s); Y83.5 Amputation of limb(s) as the cause of abnormal reaction of the patient, or of later complication, without mention of misadventure at the time of the procedure

== ENCOUNTER → 2018-10-10 | Outpatient (CLI) | payer BC ==
[2018-10-10 15:18] LABS: BASO % 0.5 % (0.0-1.0); EOS # 0.2 10*3/uL (0.0-0.4); EOS % 2.5 % (1.0-4.0); HEMATOCRIT 50.8 % (42.0-52.0); HEMOGLOBIN 16.6 g/dl (14.0-18.0); LYMPH # 2.1 10*3/uL (1.3-4.4); LYMPH % 25.1 % (27.0-41.0); MEAN CELL VOLUME 98.4 fl (80.0-94.0); MEAN CORPUSCULAR HGB 32.2 pg (27.0-31.0); MEAN CORPUSCULAR HGB CONC 32.7 g/dl (33.0-37.0); MEAN PLATELET VOLUME 10.7 fl (9.6-12.3); MONO # 0.7 10*3/uL (0.1-1.0); MONO % 8.2 % (3.0-9.0); NEUT # 5.4 10*3/uL (2.3-7.9); NEUT % 63.1 % (47.0-73.0); PLATELET COUNT AUTOMATED 162 10*3/uL (130-400); RED BLOOD COUNT 5.16 10*6/uL (4.50-5.90); RED CELL DISTRI WIDTH 12.5 % (0-14.5); WHITE BLOOD COUNT 8.5 10*3/uL (4.8-10.8)
[2018-10-10 15:36] LABS: CREATININE 0.83 mg/dL (0.70-1.30); VANCOMYCIN TROUGH 7.1 ug/mL (10-20)
== END | disposition home or self-care (01) ==
LOC: LAB 01:33 → WOUNDCARE 01:33
PROVIDERS: Nurse Practitioner
DX: S91.302D Unspecified open wound, left foot, subsequent encounter (principal); M86.472 Chronic osteomyelitis with draining sinus, left ankle and foot; Z89.412 Acquired absence of left great toe; X58.XXXD Exposure to other specified factors, subsequent encounter

== ENCOUNTER → 2018-10-13 | Outpatient (CLI) | payer BC | END | disposition home or self-care (01) | LOC: WOUNDCARE 04:41 | DX: S91.302D Unspecified open wound, left foot, subsequent encounter (principal); E11.69 Type 2 diabetes mellitus with other specified complication; M86.472 Chronic osteomyelitis with draining sinus, left ankle and foot; E11.40 Type 2 diabetes mellitus with diabetic neuropathy, unspecified; I10 Essential (primary) hypertension; J44.9 Chronic obstructive pulmonary disease, unspecified; F17.200 Nicotine dependence, unspecified, uncomplicated; Z89.412 Acquired absence of left great toe; Z89.421 Acquired absence of other right toe(s); X58.XXXD Exposure to other specified factors, subsequent encounter ==

== ENCOUNTER → 2018-10-16 | Outpatient (CLI) | payer BC ==
[~2018-10-16] MED LIST changes: +Ipratropium Brom3 ML NEB; +VICODIN 5-3001 EACH PO
== END | disposition home or self-care (01) ==
LOC: WOUNDCARE 01:37
DX: T87.89 Other complications of amputation stump (principal); E11.69 Type 2 diabetes mellitus with other specified complication; M86.472 Chronic osteomyelitis with draining sinus, left ankle and foot; E11.40 Type 2 diabetes mellitus with diabetic neuropathy, unspecified; I10 Essential (primary) hypertension; J44.9 Chronic obstructive pulmonary disease, unspecified; F17.200 Nicotine dependence, unspecified, uncomplicated; Z89.421 Acquired absence of other right toe(s); Y83.5 Amputation of limb(s) as the cause of abnormal reaction of the patient, or of later complication, without mention of misadventure at the time of the procedure

== ENCOUNTER → 2018-10-22 | Outpatient (CLI) | payer BC ==
[~2018-10-22] MED LIST changes: -Ipratropium Brom3 ML NEB
== END | disposition home or self-care (01) ==
LOC: WOUNDCARE 01:48
DX: S91.302D Unspecified open wound, left foot, subsequent encounter (principal); E11.69 Type 2 diabetes mellitus with other specified complication; M86.472 Chronic osteomyelitis with draining sinus, left ankle and foot; E11.40 Type 2 diabetes mellitus with diabetic neuropathy, unspecified; I10 Essential (primary) hypertension; J44.9 Chronic obstructive pulmonary disease, unspecified; F17.200 Nicotine dependence, unspecified, uncomplicated; Z89.421 Acquired absence of other right toe(s); Z89.412 Acquired absence of left great toe; X58.XXXD Exposure to other specified factors, subsequent encounter

== ENCOUNTER → 2018-10-23 | Outpatient (CLI) | payer BC | END | disposition home or self-care (01) | LOC: WOUNDCARE 03:00 | DX: T87.89 Other complications of amputation stump (principal); E11.69 Type 2 diabetes mellitus with other specified complication; M86.472 Chronic osteomyelitis with draining sinus, left ankle and foot; E11.40 Type 2 diabetes mellitus with diabetic neuropathy, unspecified; I10 Essential (primary) hypertension; J44.9 Chronic obstructive pulmonary disease, unspecified; F17.200 Nicotine dependence, unspecified, uncomplicated; Z89.421 Acquired absence of other right toe(s); Y83.5 Amputation of limb(s) as the cause of abnormal reaction of the patient, or of later complication, without mention of misadventure at the time of the procedure ==

== ENCOUNTER → 2018-10-24 | Outpatient (CLI) | payer BC | END | disposition home or self-care (01) | LOC: WOUNDCARE 02:02 | DX: S91.302D Unspecified open wound, left foot, subsequent encounter (principal); E11.69 Type 2 diabetes mellitus with other specified complication; M86.472 Chronic osteomyelitis with draining sinus, left ankle and foot; E11.40 Type 2 diabetes mellitus with diabetic neuropathy, unspecified; I10 Essential (primary) hypertension; J44.9 Chronic obstructive pulmonary disease, unspecified; F17.200 Nicotine dependence, unspecified, uncomplicated; Z89.421 Acquired absence of other right toe(s); Z89.412 Acquired absence of left great toe; X58.XXXD Exposure to other specified factors, subsequent encounter ==

== ENCOUNTER → 2018-10-27 | Outpatient (CLI) | payer BC | END | disposition home or self-care (01) | LOC: WOUNDCARE 03:38 | DX: S91.302D Unspecified open wound, left foot, subsequent encounter (principal); E11.69 Type 2 diabetes mellitus with other specified complication; M86.472 Chronic osteomyelitis with draining sinus, left ankle and foot; E11.40 Type 2 diabetes mellitus with diabetic neuropathy, unspecified; I10 Essential (primary) hypertension; J44.9 Chronic obstructive pulmonary disease, unspecified; F17.200 Nicotine dependence, unspecified, uncomplicated; Z89.421 Acquired absence of other right toe(s); Z89.412 Acquired absence of left great toe; X58.XXXD Exposure to other specified factors, subsequent encounter ==

== ENCOUNTER → 2018-10-28 | Outpatient (CLI) | payer BC ==
[~2018-10-28] MED LIST changes: +Ipratropium Brom3 ML NEB
== END | disposition home or self-care (01) ==
LOC: WOUNDCARE 01:49
DX: T87.89 Other complications of amputation stump (principal); E11.69 Type 2 diabetes mellitus with other specified complication; M86.472 Chronic osteomyelitis with draining sinus, left ankle and foot; E11.40 Type 2 diabetes mellitus with diabetic neuropathy, unspecified; I10 Essential (primary) hypertension; J44.9 Chronic obstructive pulmonary disease, unspecified; F17.200 Nicotine dependence, unspecified, uncomplicated; Z89.421 Acquired absence of other right toe(s); Y83.5 Amputation of limb(s) as the cause of abnormal reaction of the patient, or of later complication, without mention of misadventure at the time of the procedure

== ENCOUNTER → 2018-10-29 | Outpatient (CLI) | payer BC | END | disposition home or self-care (01) | LOC: WOUNDCARE 05:02 | DX: S91.302D Unspecified open wound, left foot, subsequent encounter (principal); E11.69 Type 2 diabetes mellitus with other specified complication; M86.472 Chronic osteomyelitis with draining sinus, left ankle and foot; E11.40 Type 2 diabetes mellitus with diabetic neuropathy, unspecified; I10 Essential (primary) hypertension; J44.9 Chronic obstructive pulmonary disease, unspecified; F17.200 Nicotine dependence, unspecified, uncomplicated; Z89.421 Acquired absence of other right toe(s); Z89.412 Acquired absence of left great toe; X58.XXXD Exposure to other specified factors, subsequent encounter ==

== ENCOUNTER → 2018-10-30 | Outpatient (CLI) | payer BC | END | disposition home or self-care (01) | LOC: WOUNDCARE 02:57 | DX: S91.302D Unspecified open wound, left foot, subsequent encounter (principal); E11.69 Type 2 diabetes mellitus with other specified complication; M86.472 Chronic osteomyelitis with draining sinus, left ankle and foot; E11.40 Type 2 diabetes mellitus with diabetic neuropathy, unspecified; I10 Essential (primary) hypertension; J44.9 Chronic obstructive pulmonary disease, unspecified; F17.200 Nicotine dependence, unspecified, uncomplicated; Z89.421 Acquired absence of other right toe(s); Z89.412 Acquired absence of left great toe; X58.XXXD Exposure to other specified factors, subsequent encounter ==

== ENCOUNTER → 2018-10-31 | Outpatient (CLI) | payer BC | END | disposition home or self-care (01) | LOC: WOUNDCARE 08:25 | DX: S91.302D Unspecified open wound, left foot, subsequent encounter (principal); E11.69 Type 2 diabetes mellitus with other specified complication; M86.472 Chronic osteomyelitis with draining sinus, left ankle and foot; E11.40 Type 2 diabetes mellitus with diabetic neuropathy, unspecified; I10 Essential (primary) hypertension; J44.9 Chronic obstructive pulmonary disease, unspecified; F17.200 Nicotine dependence, unspecified, uncomplicated; Z89.421 Acquired absence of other right toe(s); Z89.412 Acquired absence of left great toe; X58.XXXD Exposure to other specified factors, subsequent encounter ==

== ENCOUNTER → 2018-11-04 | Outpatient (CLI) | payer BC ==
[2018-11-04 10:57] LABS: BASO # 0.1 10*3/uL (0.0-0.1); BASO % 0.9 % (0.0-1.0); EOS # 0.3 10*3/uL (0.0-0.4); EOS % 3.8 % (1.0-4.0); HEMATOCRIT 49.4 % (42.0-52.0); HEMOGLOBIN 16.5 g/dl (14.0-18.0); LYMPH # 2.6 10*3/uL (1.3-4.4); LYMPH % 33.1 % (27.0-41.0); MEAN CELL VOLUME 99.4 fl (80.0-94.0); MEAN CORPUSCULAR HGB 33.2 pg (27.0-31.0); MEAN CORPUSCULAR HGB CONC 33.4 g/dl (33.0-37.0); MEAN PLATELET VOLUME 10.4 fl (9.6-12.3); MONO # 0.7 10*3/uL (0.1-1.0); MONO % 9.2 % (3.0-9.0); NEUT # 4.1 10*3/uL (2.3-7.9); NEUT % 52.6 % (47.0-73.0); PLATELET COUNT AUTOMATED 161 10*3/uL (130-400); RED BLOOD COUNT 4.97 10*6/uL (4.50-5.90); RED CELL DISTRI WIDTH 12.7 % (0-14.5); WHITE BLOOD COUNT 7.9 10*3/uL (4.8-10.8)
[2018-11-04 11:26] LABS: ALBUMIN 3.7 gm/dl (3.1-4.5); ALKALINE PHOSPHATASE 62 U/L (45-117); BUN 17 mg/dl (7-24); CHLORIDE 99 mmol/L (98-107); CPK 229 U/L (39-308); CREATININE 1.02 mg/dL (0.70-1.30); POTASSIUM 4.3 mmol/L (3.5-5.1); SGOT/AST 23 IU/L (3-35); SGPT/ALT 35 U/L (12-78); SODIUM 135 mmol/L (136-145); TOTAL PROTEIN 8.3 gm/dL (6.4-8.2)
== END | disposition home or self-care (01) ==
LOC: LAB 02:22 → WOUNDCARE 02:22
DX: S91.302D Unspecified open wound, left foot, subsequent encounter (principal); M86.472 Chronic osteomyelitis with draining sinus, left ankle and foot; E11.40 Type 2 diabetes mellitus with diabetic neuropathy, unspecified; Z89.412 Acquired absence of left great toe; X58.XXXD Exposure to other specified factors, subsequent encounter

== ENCOUNTER → 2018-11-05 | Outpatient (CLI) | payer BC | END | disposition home or self-care (01) | LOC: WOUNDCARE 01:50 | DX: T87.89 Other complications of amputation stump (principal); E11.621 Type 2 diabetes mellitus with foot ulcer; L97.522 Non-pressure chronic ulcer of other part of left foot with fat layer exposed; E11.69 Type 2 diabetes mellitus with other specified complication; M86.472 Chronic osteomyelitis with draining sinus, left ankle and foot; E11.40 Type 2 diabetes mellitus with diabetic neuropathy, unspecified; I10 Essential (primary) hypertension; J44.9 Chronic obstructive pulmonary disease, unspecified; F17.200 Nicotine dependence, unspecified, uncomplicated; Z89.421 Acquired absence of other right toe(s); Y83.5 Amputation of limb(s) as the cause of abnormal reaction of the patient, or of later complication, without mention of misadventure at the time of the procedure ==

== ENCOUNTER → 2018-11-07 | Outpatient (CLI) | payer BC | END | disposition home or self-care (01) | LOC: WOUNDCARE 03:09 | DX: E11.621 Type 2 diabetes mellitus with foot ulcer (principal); L97.522 Non-pressure chronic ulcer of other part of left foot with fat layer exposed; E11.69 Type 2 diabetes mellitus with other specified complication; M86.472 Chronic osteomyelitis with draining sinus, left ankle and foot; I10 Essential (primary) hypertension; J44.9 Chronic obstructive pulmonary disease, unspecified; F17.200 Nicotine dependence, unspecified, uncomplicated; Z89.412 Acquired absence of left great toe; Z89.421 Acquired absence of other right toe(s) ==

== ENCOUNTER → 2018-11-11 | Outpatient (CLI) | payer BC | END | disposition home or self-care (01) | LOC: WOUNDCARE 08:30 | DX: E11.621 Type 2 diabetes mellitus with foot ulcer (principal); L97.522 Non-pressure chronic ulcer of other part of left foot with fat layer exposed; E11.69 Type 2 diabetes mellitus with other specified complication; M86.472 Chronic osteomyelitis with draining sinus, left ankle and foot; E11.40 Type 2 diabetes mellitus with diabetic neuropathy, unspecified; J44.9 Chronic obstructive pulmonary disease, unspecified; I10 Essential (primary) hypertension; F17.200 Nicotine dependence, unspecified, uncomplicated; Z89.412 Acquired absence of left great toe; Z89.421 Acquired absence of other right toe(s) ==

== ENCOUNTER → 2018-11-12 | Outpatient (CLI) | payer BC ==
[2018-11-12 11:22] LABS: BASO % 0.4 % (0.0-1.0); EOS # 0.4 10*3/uL (0.0-0.4); EOS % 4.3 % (1.0-4.0); HEMATOCRIT 46.7 % (42.0-52.0); HEMOGLOBIN 15.4 g/dl (14.0-18.0); LYMPH # 2.5 10*3/uL (1.3-4.4); LYMPH % 27.5 % (27.0-41.0); MEAN CELL VOLUME 98.9 fl (80.0-94.0); MEAN CORPUSCULAR HGB 32.6 pg (27.0-31.0); MEAN PLATELET VOLUME 10.4 fl (9.6-12.3); MONO # 0.8 10*3/uL (0.1-1.0); MONO % 8.2 % (3.0-9.0); NEUT # 5.4 10*3/uL (2.3-7.9); NEUT % 59.4 % (47.0-73.0); PLATELET COUNT AUTOMATED 154 10*3/uL (130-400); RED BLOOD COUNT 4.72 10*6/uL (4.50-5.90); RED CELL DISTRI WIDTH 12.6 % (0-14.5); WHITE BLOOD COUNT 9.1 10*3/uL (4.8-10.8)
[2018-11-12 11:49] LABS: ALBUMIN 3.6 gm/dl (3.1-4.5); ALKALINE PHOSPHATASE 61 U/L (45-117); BUN 15 mg/dl (7-24); CHLORIDE 107 mmol/L (98-107); CPK 239 U/L (39-308); CREATININE 0.85 mg/dL (0.70-1.30); POTASSIUM 4.5 mmol/L (3.5-5.1); SGOT/AST 29 IU/L (3-35); SGPT/ALT 39 U/L (12-78); SODIUM 141 mmol/L (136-145)
== END | disposition home or self-care (01) ==
LOC: WOUNDCARE 02:59 → LAB 02:59 → WOUNDCARE 13:44
PROVIDERS: Podiatrist Foot & Ankle Surgery
DX: S91.302D Unspecified open wound, left foot, subsequent encounter (principal); M86.472 Chronic osteomyelitis with draining sinus, left ankle and foot; E11.610 Type 2 diabetes mellitus with diabetic neuropathic arthropathy; X58.XXXD Exposure to other specified factors, subsequent encounter

== ENCOUNTER → 2018-11-13 | Outpatient (CLI) | payer BC | END | disposition home or self-care (01) | LOC: WOUNDCARE 12:15 | DX: E11.621 Type 2 diabetes mellitus with foot ulcer (principal); L97.522 Non-pressure chronic ulcer of other part of left foot with fat layer exposed; E11.69 Type 2 diabetes mellitus with other specified complication; M86.472 Chronic osteomyelitis with draining sinus, left ankle and foot; E11.40 Type 2 diabetes mellitus with diabetic neuropathy, unspecified; J44.9 Chronic obstructive pulmonary disease, unspecified; I10 Essential (primary) hypertension; F17.200 Nicotine dependence, unspecified, uncomplicated; Z89.421 Acquired absence of other right toe(s); Z89.412 Acquired absence of left great toe ==

== ENCOUNTER → 2018-11-13 | Outpatient (CLI) | payer BC | END | disposition home or self-care (01) | LOC: MRI 01:30 | DX: M86.472 Chronic osteomyelitis with draining sinus, left ankle and foot (principal); E11.40 Type 2 diabetes mellitus with diabetic neuropathy, unspecified; L97.529 Non-pressure chronic ulcer of other part of left foot with unspecified severity ==

== ENCOUNTER 2018-11-22 23:29 | Emergency (ER) | payer BC ==
[~2018-11-22] VITALS: Ht 180.3 cm; Wt 106.6 kg
[~2018-11-22 23:29] MED LIST changes: -Ipratropium Brom3 ML NEB; -VICODIN 5-3001 EACH PO
[2018-11-22 23:31] VITALS: BP 142/90
[2018-12-10] MEDS ORDERED: VICODIN 5-3001 EACH PO (14:22)
== END 2018-11-23 02:06 | disposition home or self-care (01) ==
LOC: ED 23:29
DX: T82.524A Displacement of infusion catheter, initial encounter (principal); E11.40 Type 2 diabetes mellitus with diabetic neuropathy, unspecified; F17.210 Nicotine dependence, cigarettes, uncomplicated; Z79.899 Other long term (current) drug therapy; Z79.84 Long term (current) use of oral hypoglycemic drugs

== ENCOUNTER → 2018-11-26 | Outpatient (CLI) | payer BC ==
[~2018-11-26] MED LIST changes: +Ipratropium Brom3 ML NEB; +VICODIN 5-3001 EACH PO
== END | disposition home or self-care (01) ==
LOC: WOUNDCARE 10:31
DX: T87.89 Other complications of amputation stump (principal); E11.621 Type 2 diabetes mellitus with foot ulcer; L97.522 Non-pressure chronic ulcer of other part of left foot with fat layer exposed; E11.69 Type 2 diabetes mellitus with other specified complication; M86.472 Chronic osteomyelitis with draining sinus, left ankle and foot; E11.40 Type 2 diabetes mellitus with diabetic neuropathy, unspecified; J44.9 Chronic obstructive pulmonary disease, unspecified; I10 Essential (primary) hypertension; F17.200 Nicotine dependence, unspecified, uncomplicated; Z89.421 Acquired absence of other right toe(s); Y83.5 Amputation of limb(s) as the cause of abnormal reaction of the patient, or of later complication, without mention of misadventure at the time of the procedure

== ENCOUNTER → 2018-12-10 | Day surgery (SDC) | payer BC ==
[2018-12-05 10:15] VITALS: BP 150/92
[~2018-12-10] VITALS: Ht 180.3 cm; Wt 104.3 kg
--- NOTE | ~2018-12-10 | O ---
[place], [place] [facility]ATIVE [id number] UNIT #: [id number] ROOM: DOCTOR: CHRISSY TINEO DPM BIRTHDATE: [birth year] DOS: 12/10/2018 PREOPERATIVE DIAGNOSIS: Chronic osteomyelitis, first metatarsal head, left foot. POSTOPERATIVE DIAGNOSIS: Chronic osteomyelitis, first metatarsal head, left foot. PROCEDURE: Revisional amputation with removal of first metatarsal head, left foot. ANESTHESIA: MAC with local 10 mL 2% lidocaine plain and 0.5% Marcaine plain of 50:50 mix. HEMOSTASIS: Pneumatic ankle tourniquet set at 250 mmHg. CONDITION OF PATIENT: Stable. DESCRIPTION OF PROCEDURE: The patient was taken to the operating room, placed on the operating room table in supine position. A well-padded pneumatic ankle tourniquet was applied around the left ankle, but not yet inflated after adequate monitored anesthesia care was established, a local block was performed around the first metatarsal ray. Once this was complete, the area was prepped and draped in the usual sterile manner. The limb was elevated to help exsanguinate the foot and the pneumatic ankle tourniquet was inflated to 250 mmHg. Attention was then directed to the distal aspect of the amputation stump in the first metatarsal ray and excisional incision was made a fish mouth to remove all devitalized unhealthy and scar tissue that was previously present from his other surgical interventions. The incision was carried down through subcutaneous tissue. Care was taken to retract neurovascular structures and all bleeders were electrocauterized as needed. At this time, the first metatarsal head and neck was exposed. There was definitely evidence of devitalized osteomyelitic tissue in the first ray. According to the MRI, there was a 3 cm portion of the head and neck that was involved in osteomyelitis. The area was mapped out utilizing a measuring device and a skin marker. Once this was determined to be the proper level of amputation, a sagittal saw was used to resect the abnormal bone and angular cut was made. This bone was passed from the surgical site and sent for gross pathologic examination. The area was then irrigated using copious amounts of normal sterile saline. A rongeur was then used to take a biopsy of the remaining metatarsal bone that was still in the foot. The biopsy will be noted to see if the patient still has osteomyelitis and needs any more antibacterial treatments. At this time, the wound looked clean and healthy. No signs of infection and continued osteomyelitis were present. A 3-0 Vicryl was used for retention stitches in the deep fascial layer and a 2-0 Vicryl was then used to reapproximate the subcutaneous tissue layer. A quarter-inch [place] drain was placed into the site to help prevent hematoma and allowed for drainage of the area and then 3-0 Prolene in an interrupted stitch pattern were used to coapt the skin. Pneumatic ankle tourniquet was deflated. Immediate hyperemia [place], [place] OPERATIVE NOTE NAME: NINFA LOYOLA UNIT #: [id number] ROOM: DOCTOR: CHRISSY TINEO DPM BIRTHDATE: [birth year] was noted to the remaining digits 2 through 4. A bulky dressing consisting of 4 x 4s, fluffs, ABDs, Kerlix and Coban was applied to the left foot. The patient was transported to PACU with vital signs stable and vascular status intact. After a brief period of postoperative monitoring, the patient will be discharged to home. The patient will be [facility]. He is to keep the bandage on, clean, dry, and intact. He is to have minimal activity and keep the limb elevated and ice to the dorsum of the foot. I have given him a prescription for Vicodin to take for pain as needed. The patient is to call the [facility] if any problems should arise before next week. CHRISSY TINEO DPM CM:OPRECORD:OPERATIVE NOTE [id number] 1407 CHRISSY TINEO DPM 12/10/18 1807 interface
[2018-12-10 11:40] VITALS: BP 153/88
[2018-12-10 13:28] VITALS: BP 133/71
[2018-12-10 13:43] VITALS: BP 139/68
[2018-12-10 13:58] VITALS: BP 143/76
[2018-12-10 14:15] VITALS: BP 132/75
== END | disposition home or self-care (01) ==
LOC: SDC 12-05 10:15
DX: M86.672 Other chronic osteomyelitis, left ankle and foot (principal); E11.69 Type 2 diabetes mellitus with other specified complication; J45.909 Unspecified asthma, uncomplicated; M19.90 Unspecified osteoarthritis, unspecified site; I10 Essential (primary) hypertension; K21.9 Gastro-esophageal reflux disease without esophagitis; Z72.89 Other problems related to lifestyle; F17.210 Nicotine dependence, cigarettes, uncomplicated; F32.9 Major depressive disorder, single episode, unspecified; J43.9 Emphysema, unspecified; Z79.899 Other long term (current) drug therapy; Z98.890 Other specified postprocedural states; Z83.3 Family history of diabetes mellitus; Z82.5 Family history of asthma and other chronic lower respiratory diseases

== ENCOUNTER → 2018-12-17 | Outpatient (CLI) | payer BC | END | disposition home or self-care (01) | LOC: WOUNDCARE 01:15 | DX: T87.89 Other complications of amputation stump (principal); E11.69 Type 2 diabetes mellitus with other specified complication; M86.472 Chronic osteomyelitis with draining sinus, left ankle and foot; E11.40 Type 2 diabetes mellitus with diabetic neuropathy, unspecified; J44.9 Chronic obstructive pulmonary disease, unspecified; I10 Essential (primary) hypertension; F17.200 Nicotine dependence, unspecified, uncomplicated; Y83.5 Amputation of limb(s) as the cause of abnormal reaction of the patient, or of later complication, without mention of misadventure at the time of the procedure ==

== ENCOUNTER → 2018-12-24 | Outpatient (CLI) | payer BC | END | disposition home or self-care (01) | LOC: WOUNDCARE 03:09 | DX: T87.89 Other complications of amputation stump (principal); E11.621 Type 2 diabetes mellitus with foot ulcer; L97.522 Non-pressure chronic ulcer of other part of left foot with fat layer exposed; E11.69 Type 2 diabetes mellitus with other specified complication; M86.472 Chronic osteomyelitis with draining sinus, left ankle and foot; E11.40 Type 2 diabetes mellitus with diabetic neuropathy, unspecified; J44.9 Chronic obstructive pulmonary disease, unspecified; I10 Essential (primary) hypertension; F17.200 Nicotine dependence, unspecified, uncomplicated; Z89.421 Acquired absence of other right toe(s) ==

== ENCOUNTER 2019-01-03 19:40 | Inpatient (IN) | payer BC ==
[~2019-01-03] VITALS: Ht 180.3 cm; Wt 104.1 kg
--- NOTE | ~2019-01-03 | PR ---
[place], [place] PROGRESS NOTE NAME: NNIFA LOYOLA UNIT #: [id number] ROOM: 404 DOCTOR: RESHMA MCCOY,YOLANDE Eid BIRTHDATE: [birth year] DOS: 01/09/2019 SUBJECTIVE: The patient is feeling well, waiting for his vacuum pump, so he could wound vacuum, so he could go home with the antibiotics, which have been arranged. OBJECTIVE: VITAL SIGNS: Blood pressure 160/86, heart rate of 61 beats per minute, breathing normally, afebrile.. IMPRESSION AND PLAN: 1. Left foot wound, status post bone resection and treatment of the abscess with incision and drainage. The patient on Fortaz and vancomycin and wound vacuum in place, waiting to go home after the wound vacuum and antibiotics are arranged. 2. Osteomyelitis of the left foot, status post bone resection. 3. Type 2 diabetes mellitus. The patient remains on Trulicity. 4. Chronic obstructive pulmonary disease with chronic shortness of breath. 5. Major depression, recurrent, mild, treated and controlled with Zoloft. YOLANDE JUSTICE MD CM:PNTRANS [phone] YOLANDE JUSTICE MD 01/09/19 1326 interface
--- NOTE | ~2019-01-03 | PR ---
[place], [place] PROGRESS NOTE NAME: NINFA LOYOLA UNIT #: [id number] ROOM: 404 DOCTOR: YOLANDE JUSTICE MD BIRTHDATE: [birth year] DOS: 01/08/2019 SUBJECTIVE: The patient is improving with treatment. OBJECTIVE: GENERAL APPEARANCE: The patient is alert and oriented x 3, in no visible distress. VITAL SIGNS: Blood pressure 122/78, heart rate 72 beats per minute, breathing 18 times per minute, temperature 98 degrees Fahrenheit. HEENT AND NECK: Exam within normal limits. CARDIOVASCULAR SYSTEM: Heart rate is regular in rate and rhythm. S1 and S2 normally audible. LUNGS: Clear to auscultation. ABDOMEN: Soft, nontender. No obvious organomegaly. Bowel sounds are present. EXTREMITIES: Without significant cyanosis or edema. IMPRESSION: 1. Osteomyelitis of the left foot, status post bone resection followed by abscess, which has been drained and wound vacuum is in place. The patient is waiting for wound vacuum to be arranged for home before he can be discharged on vancomycin and Zosyn. The patient is to follow up with Dr. Gonsales after discharge from the hospital. 2. Type 2 diabetes mellitus. The patient will be on Trulicity. Blood sugars will be monitored and treated. 3. Chronic obstructive pulmonary disease with chronic shortness of breath, treated with bronchodilators. 4. Major depression, recurrent, mild, treated and controlled with Zoloft. YOLANDE JUSTICE MD CM:PNTRANS [phone] YOLANDE JUSTICE MD 01/09/19 0459 interface
--- NOTE | ~2019-01-03 | DS ---
[place], [place] DISCHARGE SUMMARY NAME: NINFA LOYOLA UNIT #: [id number] ROOM: 404 DOCTOR: AYDE COLEMAN MD BIRTHDATE: [birth year] DOS: 01/07/2019 DIAGNOSES: 1. Osteomyelitis of the left foot, first metatarsal. 2. I and D of the infected left foot with wound VAC placement. Wound cultures so far negative. 3. Type 2 diabetes mellitus, poorly controlled with hemoglobin A1c of 8.2. 4. Peripheral vascular disease ruled out. 5. Peripheral neuropathy from diabetes. 6. Moderate cigarette smoker. 7. Chronic obstructive pulmonary disease. MEDICATIONS ON DISCHARGE: Breathing treatments with DuoNeb q. 8 hours p.r.n., Trulicity 0.75 q. weekly, gabapentin 800 q. 8 hours, sertraline 100 daily, metformin 1000 b.i.d., and vancomycin and IV Zosyn to be dosed by Infectious Disease, follow up with Dr. Rosenbaum as an outpatient. HOSPITAL COURSE: This patient is very well known to us from previous admissions, a 48-year-old with poorly healing wound of the left foot. He has been seeing wound clinic and has had recent surgeries done by Dr. Darling. He also was on doxycycline without much improvement. He decided to come into the Emergency Room. The left foot was swollen, red with minimal drainage. Please refer to H and P for details of the admission. He was placed on IV antibiotics. Podiatry was consulted. Infectious Disease was consulted. The patient underwent surgery and wound VAC was placed. Bone biopsy was obtained. Abscess was I and D'd. The patient is relatively stable after that and is not having any new problems, so the plan therefore was to discharge him to home today with visiting nurses on IV antibiotics and he will follow up with Dr. Rosenbaum. He does have bronchospasm from underlying COPD and cigarette smoking. Counseled against smoking. Nebulized breathing treatments were added. Peripheral vascular disease was ruled out with an arterial Doppler, which was negative. [place], [place] DISCHARGE SUMMARY NAME: NINFA LOYOLA UNIT #: [id number] ROOM: 404 DOCTOR: AYDE COLEMAN MD BIRTHDATE: [birth year] AYDE COLEMAN MD CM:JB 7 7 AYDE COLEMAN MD 01/07/19747 interface
--- NOTE | ~2019-01-03 | PR ---
[place], [place] PROGRESS NOTE NAME: NINFA LOYOLA UNIT #: [id number] ROOM: 404 DOCTOR: AYDE COLEMAN MD BIRTHDATE: [birth year] DOS: SUBJECTIVE: The patient is about the same, does not have any new complaints. He did have a wound VAC applied. OBJECTIVE: VITAL SIGNS: Blood pressure 156/89, pulse of 64, respirations 18, temperature 98.8. LUNGS: Clear. HEART: Regular. ABDOMEN: Obese, soft. EXTREMITIES: Without any edema on the right. Left heavily bandaged with a wound VAC. LABORATORY DATA: This morning shows WBC count is 7.4, hemoglobin 14.0, hematocrit 42.3. BMP: Glucose 173, BUN 11, creatinine 0.91, sodium 140, potassium 4.3, chloride 103, bicarbonate 32. C-reactive protein 4.89. ASSESSMENT AND PLAN: 1. Osteomyelitis of the left foot. The patient did have I and D performed. The wound cultures so far shows no bacterial growth. PICC line was placed and the patient will be discharged on vancomycin and Zosyn. He follows up with Dr. Rosenbaum and Infectious Disease as an outpatient. 2. Type 2 diabetes mellitus, on Trulicity. 3. Chronic obstructive pulmonary disease. Add nebulizer with breathing treatments and counseled against smoking. AYDE COLEMAN MD CM:PNTRANS [phone] AYDE COLEMAN MD 01/07/19 1530 interface
--- NOTE | ~2019-01-03 | WRIGHTHP ---
[place], [place] PATIENT HISTORY AND PHYSICAL EXAM NAME: NINFA LOYOLA [facility] #: [id number] UNIT #: [id number] ROOM: 404 DOCTOR: AYDE COLEMAN MD BIRTHDATE: [birth year] DOS: HISTORY OF PRESENT ILLNESS: This patient is very well known to us from previous admissions, 48 years old, has had a chronic poorly healing wound of the left foot, which has continued to worsen over the last several years, usually sees Wound Care and had a surgery performed [address] Raina Darling, which as per the patient was bone biopsy, but after the bone biopsy, has continued to notice the area to be quite red and swollen and without any improvement on antibiotics. The bone biopsy done on 12/11 continues to show chronic osteomyelitis. The patient comes into the Emergency Room with increasing redness and swelling. He denies having any chest pains, palpitations, does not have any fever or chills. PAST MEDICAL HISTORY: Significant for; 1. Type 2 diabetes mellitus. 2. COPD. 3. Moderate cigarette smoker. 4. Benign hypertension. 5. Diabetic polyneuropathy. 6. Stasis dermatitis of lower legs. 7. History of amputation of the big toe, left. MEDICATIONS: Combivent 4 puffs t.i.d., gabapentin 800 q.8, metformin 1000 b.i.d., sertraline 100 daily. SOCIAL HISTORY: Smokes about a half to 1 pack of cigarettes a day. Denies using any alcohol. He continues to be employed even with his disability. PHYSICAL EXAMINATION: GENERAL: He is awake and alert and oriented. VITAL SIGNS: Blood pressure is 140/82, pulse of 85, respirations 18, temperature 98.5. LUNGS: Diminished breath sounds. Few wheezes heard. HEART: Regular. ABDOMEN: Obese, soft, nontender. EXTREMITIES: Right leg warm to touch. Pulsations are adequate, some evidence of skin changes noticed possibly from peripheral vascular disease, which is similar to the left leg. The left big toe is amputated. The whole area is red, swollen with multiple projections suggestive of small abscesses superficially on the dorsal aspect of the foot. LABORATORY DATA: Lactic acid 2.2. ESR is 33. CRP is 4.72. Comprehensive glucose of 251, BUN 13, creatinine 0.87, sodium 135, potassium 3.7, chloride 95, hemoglobin A1c is 8.5. CT scan shows osteomyelitis. ASSESSMENT AND PLAN: 1. Osteomyelitis of the left foot first metatarsal area with subcu gas suggestive of again osteomyelitis, placed the patient on IV vancomycin. [place], [place] PATIENT HISTORY AND PHYSICAL EXAM NAME: NINFA LOYOLA UNIT #: [id number] ROOM: [facility] DOCTOR: AYDE COLEMAN MD BIRTHDATE: [birth year] 2. Type 2 diabetes mellitus, poorly controlled. His hemoglobin A1c is 8.2, blood sugars to be checked and coverage scale ordered. 3. Possible peripheral vascular disease. Arterial Dopplers are being ordered. 4. Peripheral neuropathy, on multiple medications being continued. AYDE COLEMAN MD CM:HISPHYS:PATIENT HISTORY AND PHYSICAL EXAMINATION [phone] AYDE COLEMAN MD 01/04/19 0835 interface
--- NOTE | ~2019-01-03 | O ---
[place], [place] OPERATIVE NOTE [id number] UNIT #: [id number] ROOM: 404 DOCTOR: FREDO CARUSO DPM BIRTHDATE: [birth year] DOS: 01/05/2019 SURGEON: Fredo Caruso DPM. COUNCIL ON AGING DIRECTOR: Twin Aguirre, PGY1. PREOPERATIVE DIAGNOSES: Infected left foot with ulceration, abscess and gas on x-ray, possible osteomyelitis. POSTOPERATIVE DIAGNOSES: Infected left foot with ulceration, abscess and gas on x-ray, possible osteomyelitis. PROCEDURE: I and D of left foot area with bone biopsy and bone cultures. ANESTHESIA: LMAC. INJECTABLES: 10 mL of 0.5% Marcaine plain. ESTIMATED BLOOD LOSS: About 10 mL. PATHOLOGY: Bone for pathology and then bone for culture. COMPLICATIONS: None. DESCRIPTION OF PROCEDURE: After appropriate preoperative evaluation, patient was brought to the OR and placed on table in supine position. Anesthesia was then administered per anesthesia record. Next, a total of 10 mL of 0.5% Marcaine plain was injected in field block fashion proximal to the medial distal left foot. The area was then prepped and draped in usual sterile manner. Left foot was lowered to surgical field. Upon inspection of the foot, there was localized edema and erythema noted to the medial forefoot, previous amputation of first toe and partial first metatarsal was noted. There was a wound proximal that tracked distally towards the distal ulceration. Using a Anton elevator, we did follow this track and a 15 blade was used to open up the whole area. There was a pocket plantar medial and plantar lateral first metatarsal that had some mild purulent drainage, no malodor was noted. First metatarsal was obviously exposed. A power saw was used to resect the distal portion of the remaining first metatarsal and this was sent for biopsy. Bone cultures were then done and will be sent for Gram stain, culture and sensitivity, aerobic and anaerobic as well as acid fast. A rongeur was used to debride any nonviable tissue within the area. Area was inspected and there was minimal bleeding noted. Next, using a pulse engineer systems, 2 liters of normal saline was flushed through the area. Again, area was inspected and there was noted to be only minimal bleeding at this time. There was a track dorsolateral. This was followed to the dorsal portion of the foot and a 2-cm incision was made just lateral to the first metatarsal and this was opened up as well. A 2-0 nylon was used for retention suture in the central portion of the incision. A half inch plain Nu Gauze packing was applied to both and incised the areas followed by 4 x 4s, ABD, Kerlix and Jose D wrap. The patient tolerated procedure and anesthesia well. He will continue to be followed here in the hospital and after discharge, he will [place], [place] OPERATIVE NOTE NAME: NIRNINFA Camila UNIT #: [id number] ROOM: [facility] DOCTOR: FREDO CARUSO DPM BIRTHDATE: [address] Darling at the wound care center. We will follow up tomorrow for reevaluation. FREDO CARUSO DPM CM:OPRECORD:OPERATIVE NOTE [phone] FREDO CARUSO DPM 01/06/19 0049 interface
--- NOTE | ~2019-01-03 | PR ---
[place], [place] PROGRESS NOTE NAME: NINFA LOYOLA UNIT #: [id number] ROOM: 404 DOCTOR: AYDE COLEMAN MD BIRTHDATE: [birth year] DOS: 01/06/2019 SUBJECTIVE: The patient is doing well, does not have any new complaints, was taken for surgery yesterday, had a bone biopsy performed and I and D of the left foot was performed. Wound cultures were sent. OBJECTIVE: VITAL SIGNS: Graphic trend shows a blood pressure of 129/67, pulse of 73, respirations 20, temperature 98.1. LUNGS: Clear. HEART: Regular. ABDOMEN: Obese, soft. EXTREMITIES: Without any edema. Left foot heavily bandaged. LABORATORY DATA: White cell count is 8.5, hemoglobin 13.9, hematocrit 42.7. BMP: Glucose 229, BUN 15, creatinine 0.60, sodium 139, potassium 3.7, chloride 104, bicarbonate 29. Cultures of the wound: No bacterial growth. Blood cultures: No bacterial growth. Wound cultures: All negative. ASSESSMENT AND PLAN: 1. Poorly healing wound of the left foot, status post I and D, bone biopsy pending. The patient will have a PICC line placed and IV vancomycin and Zosyn will be continued at home. 2. Type 2 diabetes mellitus, poorly controlled. Hemoglobin A1c 8.3. The patient is recommended to go on Trulicity. 3. Moderate cigarette smoker with chronic obstructive pulmonary disease. Start nebulizer with breathing treatments. AYDE COLEMAN MD CM:PNTRANS [phone] AYDE COLEMAN MD 02/03/19 0810 interface
--- NOTE | ~2019-01-03 | PR ---
[place], [place] PROGRESS NOTE NAME: NINFA LOYOLA UNIT #: [id number] ROOM: 404 DOCTOR: AYDE COLEMAN MD BIRTHDATE: [birth year] DOS: 01/05/2019 SUBJECTIVE: The patient is doing well, does not have any new complaints, is awaiting surgery this morning. OBJECTIVE: VITAL SIGNS: Graphic trend shows a pressure of 130/75, pulse of 75, respirations 18, temperature 98.3. LUNGS: Clear. HEART: Regular. ABDOMEN: Obese. EXTREMITIES: Without any edema, right. Left is heavily bandaged. I did not open up the wound this morning. Wound cultures shows preliminary, no bacterial growth. ASSESSMENT AND PLAN: 1. Poorly healing wound of the left leg with osteomyelitis, which is chronic. Awaiting consultation with Dr. Rivera since morning. 2. Type 2 diabetes mellitus, poorly controlled. Did suggest that he go on better medication regimen to control the blood sugars, otherwise infection will not heal. Trulicity will be added. Unfortunately, the hospital pharmacy does not carry those meds. So, I will discharge him on those meds when he goes home. 3. Rule out peripheral vascular disease, awaiting arterial Dopplers. AYDE COLEMAN MD CM:PNTRANS [id number] AYDE COLEMAN MD 01/05/19 1046 interface
--- NOTE | ~2019-01-03 | CON ---
[place], [place] REPORT OF CONSULTATION NAME: NINFA LOYOLA UNIT #: [id number] ROOM: 404 DOCTOR: MONTRELL LOMBARDO,JANUARY BIRTHDATE: [birth year] DOS: 01/04/2019 HISTORY OF PRESENT ILLNESS: The patient is a 48-year-old male who was admitted with left diabetic foot infection. He has been struggling with the foot for a few months now. He has not been seen by Infectious Disease since 2015. His antibiotic management has been handled by Podiatry here with wound care. He underwent surgery for revision of a left great toe amputation and primary closure back in September per Dr. Miles. According to reviewing the old chart, he is also on IV vancomycin around that time. On 12/10/2018, he was taken to surgery by Dr. Darling with Podiatry for chronic osteomyelitis of first metatarsal head of the left foot and underwent resection of the metatarsal head. He was not placed on IV antibiotics. He had presented back to Podiatry around December 17 or with erythema of the foot and was given a prescription for 2 weeks of doxycycline, which he completed. Reviewing cultures, there is only one culture from 12/10/2018, prior to that, none since 12/2017. The culture from 12/10/2018 is sterile. His pathology at that time was consistent with chronic osteomyelitis of the first metatarsal head of the left foot. ID is now consulted for the chronic osteomyelitis of his left foot. Again, he was on no antibiotics prior to admission. Since admission, he has been given vancomycin, Zosyn and now Levaquin, clindamycin and vancomycin. He had at bedside debridement with removal of sutures and drainage of purulence per Podiatry earlier today and he is scheduled for further debridement tomorrow. He did receive oral antibiotics after his IVs during the winter as well in August and September. Again, he was not followed or managed by Infectious Disease at that point. PAST MEDICAL HISTORY: As above as well as diabetes, COPD, hypertension, peripheral neuropathy. He has a history of stasis dermatitis of lower extremities, amputation of the left great toe approximately a year ago. SOCIAL HISTORY: He smokes a pack of cigarettes per day for 32 years. He drinks 5-6 mixed drinks per day, mainly whiskey. No illicit drug use since 2002. Previously, he had used cocaine, marijuana, and LSD. Again, all of that was prior to 2002. FAMILY MEDICAL HISTORY: Significant for diabetes and COPD. LABORATORY DATA: WBC 7.5, platelets 250. BUN 13, creatinine 0.87. Lactic acid on admission was 3.1, the last time was at 1 a.m. at 2.2. LFTs are within normal limits. C-reactive protein 4.72. Sed rate of 33. Blood and wound cultures are currently pending as is the Gram stain from his foot. REVIEW OF SYSTEMS: Alert and oriented, feels fairly well. Denies any pain in the foot. He does not have any tactile pain in the foot. He does have some pain due to his neuropathy, but no tactile sensation in his extremities. No fevers, chills. No nausea, vomiting, diarrhea. No rash or itch. No cough or shortness of breath. Further review of systems is unremarkable. Again, he has had prior amputation of left great toe. No peripheral edema. CURRENT MEDICATIONS: IV vancomycin, DuoNeb, Neurontin, Zoloft, Glucophage, [place], [place] REPORT OF CONSULTATION NAME: NINFA LOYOLA UNIT #: [id number] ROOM: 404 DOCTOR: MONTRELL LOMBARDO BIRTHDATE: [birth year] [address] Nor[place]. PHYSICAL EXAMINATION: VITAL SIGNS: Temperature 98.2, pulse 73, respirations 20, BP 144/75. GENERAL: A 48-year-old male, alert and oriented, in no acute distress. HEENT: Normocephalic, atraumatic. Neck is supple. Mucous membranes moist. No thrush. LUNGS: Lungs with rhonchi bilaterally. Respirations even and unlabored. HEART: Regular rhythm. No murmur appreciated. ABDOMEN: Soft, nondistended, positive bowel sounds. EXTREMITIES: No edema. Left foot with erythema over the distal foot along the first and second metatarsals. Wound is packed. ASSESSMENT: Left diabetic foot infection with chronic osteomyelitis, status post recent resection of the metatarsal with past demonstrating chronic osteomyelitis on 12/10/2018 without subsequent IV antibiotics. The only culture available is from that surgery and that was sterile. No other cultures are available per [facility] and he has been following up with wound clinic here. At this point, we will change the Levaquin and clindamycin to Zosyn. Continue Zosyn and vancomycin, follow up on his cultures and he needs to have IV antibiotics after his surgery for 4 or more likely 6 weeks of IV antibiotics based upon his culture results and follow up on the pathology as well. I did discuss with him the need for smoking cessation, how this would affect his wound healing and his circulation as well as his alcohol consumption and regarding the need for his diabetic control to aid in wound healing. ADDENDUM I agree with the assessment and plan made by the nurse practitioner, Dot Brady. I reviewed the labs and imaging and made the necessary changes in the note. DOT BRADY CNP Yuli Collier MD CM:CONSTR:REPORT OF CONSULTATION 1725 02/03/19 1919 interface
[~2019-01-03 19:40] MED LIST changes: -Ipratropium Brom3 ML NEB
[2019-01-03 19:42] VITALS: BP 134/72
--- NOTE | 2019-01-03 20:04 | NUR ---
PODIATRY MADE AWARE OF PT.
[2019-01-03 20:32] LABS: BASO % 0.5 % (0.0-1.0); EOS # 0.2 10*3/uL (0.0-0.4); EOS % 2.9 % (1.0-4.0); HEMATOCRIT 48.4 % (42.0-52.0); HEMOGLOBIN 16.5 g/dl (14.0-18.0); LYMPH # 3.1 10*3/uL (1.3-4.4); LYMPH % 41.1 % (27.0-41.0); MEAN CELL VOLUME 97.2 fl (80.0-94.0); MEAN CORPUSCULAR HGB 33.1 pg (27.0-31.0); MEAN CORPUSCULAR HGB CONC 34.1 g/dl (33.0-37.0); MEAN PLATELET VOLUME 10.1 fl (9.6-12.3); MONO # 0.5 10*3/uL (0.1-1.0); MONO % 6.8 % (3.0-9.0); NEUT # 3.7 10*3/uL (2.3-7.9); NEUT % 48.4 % (47.0-73.0); PLATELET COUNT AUTOMATED 250 10*3/uL (130-400); RED BLOOD COUNT 4.98 10*6/uL (4.50-5.90); RED CELL DISTRI WIDTH 12.5 % (0-14.5); WHITE BLOOD COUNT 7.5 10*3/uL (4.8-10.8)
--- NOTE | 2019-01-03 20:35 | NUR ---
LAB CALLED WITH LACTIC LEVEL 3.1.GRUPO PIEDRA NOTIFIED.
[2019-01-03 20:54] LABS: ALBUMIN 3.3 gm/dl (3.1-4.5); ALKALINE PHOSPHATASE 110 U/L (45-117); BUN 13 mg/dl (7-24); CHLORIDE 98 mmol/L (98-107); CREATININE 0.87 mg/dL (0.70-1.30); POTASSIUM 3.7 mmol/L (3.5-5.1); SGOT/AST 19 IU/L (3-35); SGPT/ALT 24 U/L (12-78); SODIUM 135 mmol/L (136-145); TOTAL PROTEIN 9.2 gm/dL (6.4-8.2)
--- NOTE | 2019-01-03 22:19 | NUR ---
PT SITTING IN BED WATCHING TV VOICES NO COMPLAINTS CALL LIGHT IN REACH
--- NOTE | 2019-01-03 23:03 | NUR ---
LAB CALLED LA 2.9 GRID MAKER TADEO NOTIFIED
--- NOTE | 2019-01-04 00:51 | NUR ---
CALLED TELEGRAPHIC TYPEWRITER OPERATOR AND NOTIFIED HER WE NEED CLINDAMYCIN. ORDER FAXED TO NURSING OFFICE PER TELEGRAPHIC TYPEWRITER OPERATOR
[2019-01-04 01:05] VITALS: BP 132/70
[2019-01-04 01:17] VITALS: BP 140/82
--- NOTE | 2019-01-04 01:17 | NUR ---
A 48, admitted to , under the services of AYDE Arriaga MD with a diagnosis of OSTEOMYELITIS. Chief complaint is LUMP TO LEFT FOOT S/P SURGERY ON 12/10. Patient arrived via ambulatory from ER. Monitor applied. Initial assessment completed. Vital signs taken and recorded. AYDE ARRIAGA MD notified of admission to the unit. Orders received. See assessment for past medical history, medications and allergies. Patient and/or family oriented to unit. [facility] visitation policy reviewed. Clothing/patient valuable form completed. CONSTANTINO GORDON
--- NOTE | 2019-01-04 01:29 | NUR ---
CLINDAYMYCIN AND VANCOMYCIN GIVEN TO HOPE RN TO BE GIVEN ON THE FLOOR
--- NOTE | 2019-01-04 01:29 | NUR ---
IV FLUIDS AND ANTIOBIOTICS INFUSING WHEN TAKEN TO FLOOR
[2019-01-04 08:00] VITALS: BP 140/80
--- NOTE | 2019-01-04 08:02 | NUR ---
24 HR chart check completed.
--- NOTE | 2019-01-04 08:05 | NUR ---
Patient resting quietly with no c/o discomfort. Respirations easy and regular. Vital signs stable. No overt distress. MISSING L GREAT TOE SITE SEEPING SEROSANGUINEOUS FLUID. KEVIN POSADA
--- NOTE | 2019-01-04 10:53 | NUR ---
MEDICATED WITH PO NORCO ORDERED PER PT REQUEST FOR C/O 8 LEFT FOOT PAIN.
--- NOTE | 2019-01-04 11:26 | NUR ---
MESSAGE LEFT WITH ANSWERING SERVICE FOR DR MARCELLO PRESTON.
[2019-01-04 12:00] VITALS: BP 136/76; BP 140/80
[2019-01-04 16:00] VITALS: BP 144/75
--- NOTE | 2019-01-04 16:06 | NUR ---
MEDICATION MOSTLY EFFECTIVE FOR PAIN PER PT.
[2019-01-04 20:00] VITALS: BP 145/78
[2019-01-05] VITALS (7 sets, daily range): BP systolic 123–152; BP diastolic 69–82
--- NOTE | 2019-01-05 00:28 | NUR ---
AWAKE, NO COMPLAINTS VOICED. ABX RUNNING.
--- NOTE | 2019-01-05 01:10 | NUR ---
24HR CHART CHECK COMPLETE.
--- NOTE | 2019-01-05 06:33 | NUR ---
BSG 213, NO VOICED COMPLAINTS. ABX RUNNING. CALL LIGHT IN REACH.
[2019-01-05 07:25] LABS: BASO % 0.6 % (0.0-1.0); EOS # 0.3 10*3/uL (0.0-0.4); EOS % 4.5 % (1.0-4.0); HEMATOCRIT 43.6 % (42.0-52.0); HEMOGLOBIN 14.7 g/dl (14.0-18.0); LYMPH # 2.2 10*3/uL (1.3-4.4); MEAN CELL VOLUME 98.6 fl (80.0-94.0); MEAN CORPUSCULAR HGB 33.3 pg (27.0-31.0); MEAN CORPUSCULAR HGB CONC 33.7 g/dl (33.0-37.0); MEAN PLATELET VOLUME 10.2 fl (9.6-12.3); MONO # 0.6 10*3/uL (0.1-1.0); MONO % 8.6 % (3.0-9.0); NEUT # 3.9 10*3/uL (2.3-7.9); NEUT % 54.9 % (47.0-73.0); PLATELET COUNT AUTOMATED 187 10*3/uL (130-400); RED BLOOD COUNT 4.42 10*6/uL (4.50-5.90); RED CELL DISTRI WIDTH 12.2 % (0-14.5); WHITE BLOOD COUNT 7.1 10*3/uL (4.8-10.8)
--- NOTE | 2019-01-05 07:30 | NUR ---
24 HR chart check completed.
[2019-01-05 08:00] LABS: ALBUMIN 2.8 gm/dl (3.1-4.5); ALKALINE PHOSPHATASE 83 U/L (45-117); BUN 16 mg/dl (7-24); CHLORIDE 102 mmol/L (98-107); CHOLESTEROL 138 mg/dL (<200); CREATININE 1.01 mg/dL (0.70-1.30); HDL CHOLESTEROL 28 mg/dl (40-60); LDL CHOLESTEROL 68 mg/dL (9-159); POTASSIUM 3.9 mmol/L (3.5-5.1); SGOT/AST 14 IU/L (3-35); SGPT/ALT 19 U/L (12-78); SODIUM 138 mmol/L (136-145); TOTAL PROTEIN 7.5 gm/dL (6.4-8.2); TRIGLYCERIDES 210 mg/dl (<150); VLDL CHOLESTEROL 42 mg/dL (6-40)
--- NOTE | 2019-01-05 08:02 | NUR ---
UP IN BATHROOM TO BATH PRIOR TO SURGERY.
--- NOTE | 2019-01-05 09:00 | NUR ---
Patent Searcher in to talk to patient. Patient states lives at home with his girlfriend. There are 4 steps in the home. Physician: Dr. Neil Rosenbaum Pharmacy: [facility]: has had [facility] previously but not currently Patient's level of ADLs: INDEPENDENT Patient has working utilities: yes DME: none Follow-up physician's appointment after d/c: he prefers to make his own follow up appt after discharge Does patient want to access PORTAL?: no Discharge plan discussed with patient. He lives at home with his girlfriend. He is independent in his ADLs and ambulation. Discussed home health care services and he has had [facility] in the past when he has had to give himself home IV antibiotics. He stated he would use [facility] again if he needs antibiotics this time. When medically stable he will be discharged to home. RAFFY DALY
--- NOTE | 2019-01-05 11:40 | NUR ---
NINFA LOYOLA [id number] Please refer to the physician's history and physical for past medical history, comorbid conditions, and allergies. Diagnosis: OSTEOMYELITIS Enrique Score: 18,LOW OR NO RISK WOUND DESCRIPTIONS: PATIENT HAS INTACT WRAP PLACED BY PODIATRY. NO DRAINAGE NOTED TO DRESSING. PATIENT STATES HE IS GOING TO SURGERY TODAY AT 1330 AND WANTS TO LEAVE IT INTACT. Surface the patient is resting on: Isoflex SKIN PREVENTION RECOMMENDATION: 1. Pressure redistribution support surface as appropriate 2. Elevate heels 3. Remove boots/TEDS every shift and reapply 4. Head of bed 30 degrees as tolerated 5. Assess nutrition and hydration 6. Manage moisture 7. Avoid the use of containment devices while in bed 8. Use absorptive products on surfaces limit layers of linens on bed 9. Turn and reposition every 1-2 hours in bed and every 1 hour in chair as tolerated 10. Weight shifts every 15 minutes while up in chair 11. Offloading with pillows or device to keep heels elevated off bed 12. Monitor skin at least every shift 13. Inspect under medical devices twice a day
--- NOTE | 2019-01-05 12:00 | NUR ---
Patient resting quietly with no c/o discomfort. Respirations easy and regular. Vital signs stable. No overt distress. KEVIN POSADA
--- NOTE | 2019-01-05 23:17 | NUR ---
ASSUMED CARE OF PATIENT. PATIENT AWAKE IN BED. ALERT & ORIENTED X3. DENIES ANY PAIN IN FOOT. STATES EARLIER NORCO WAS EFFECTIVE. DRESSING TO L FOOT D/I. EXP WHEEZES NOTED T/O LUNG NEUMANN. PATIENT DENIES ANY SOB AT PRESENT TIME. STATES EARLIER DUONEB WAS EFFECTIVE. WILL MONITOR. CALL LIGHT LEFT IN REACH.
[2019-01-06] VITALS: BP 129/67
--- NOTE | 2019-01-06 03:46 | NUR ---
PATIENT ASLEEP IN BED. NO S/S OF DISTRESS NOTED. WILL MONITOR.
[2019-01-06 06:59] LABS: BASO # 0.1 10*3/uL (0.0-0.1); BASO % 0.6 % (0.0-1.0); EOS # 0.3 10*3/uL (0.0-0.4); EOS % 3.2 % (1.0-4.0); HEMATOCRIT 42.7 % (42.0-52.0); HEMOGLOBIN 13.9 g/dl (14.0-18.0); LYMPH # 2.2 10*3/uL (1.3-4.4); MEAN CELL VOLUME 99.8 fl (80.0-94.0); MEAN CORPUSCULAR HGB 32.5 pg (27.0-31.0); MEAN CORPUSCULAR HGB CONC 32.6 g/dl (33.0-37.0); MEAN PLATELET VOLUME 10.7 fl (9.6-12.3); MONO # 0.6 10*3/uL (0.1-1.0); MONO % 6.9 % (3.0-9.0); NEUT # 5.4 10*3/uL (2.3-7.9); NEUT % 62.8 % (47.0-73.0); PLATELET COUNT AUTOMATED 182 10*3/uL (130-400); RED BLOOD COUNT 4.28 10*6/uL (4.50-5.90); RED CELL DISTRI WIDTH 12.4 % (0-14.5); WHITE BLOOD COUNT 8.5 10*3/uL (4.8-10.8)
[2019-01-06 07:36] LABS: BUN 15 mg/dl (7-24); CHLORIDE 104 mmol/L (98-107); CREATININE 1.01 mg/dL (0.70-1.30); POTASSIUM 3.7 mmol/L (3.5-5.1); SODIUM 139 mmol/L (136-145)
--- NOTE | 2019-01-06 08:29 | NUR ---
PT REQUESTING TO CLARIFY POC FROM . LEFT MESSAGE WITH HER OFFICE. SAID THEY WOULD SEND A PAGE.
--- NOTE | 2019-01-06 09:00 | NUR ---
Segment Assembler in to see patient. No new needs or request at this time. When medically stable he will be discharged to home with [facility] services.
--- NOTE | 2019-01-06 10:26 | NUR ---
OR NURSES IN PT ROOM TO INSERT PICC LINE AT THIS TIME.
[2019-01-06 10:27] VITALS: BP 132/66
[2019-01-06 11:38] VITALS: BP 152/82
--- NOTE | 2019-01-06 13:46 | NUR ---
WOUND VAC APPLIED TO PTs LEFT FOOT BY PODIATRY.
[2019-01-06 15:38] VITALS: BP 135/71
--- NOTE | 2019-01-06 19:37 | NUR ---
HERE. LEFT SCRIPT ON CHART FOR HOME HEALTH ABX. ALSO REVIEWED CXR RESULTS. PICC LINE IN PROPER POSITION. OKAY TO USE PER .
[2019-01-06 20:00] VITALS: BP 149/78
--- NOTE | 2019-01-06 21:05 | NUR ---
PATIENT MEDICATED WITH PO NORCO PER PRN ORDER FOR C/O L FOOT PAIN RATED 5/10. WILL MONITOR. WOUND VAC IN USE, FUNCTIONING PROPERLY.
--- NOTE | 2019-01-06 22:31 | NUR ---
EARLIER MEDICATION EFFECTIVE PER PT. WILL MONITOR.
[2019-01-07] VITALS (8 sets, daily range): BP systolic 127–156; BP diastolic 48–89
--- NOTE | 2019-01-07 01:15 | NUR ---
PATIENT TOOK SELF TO BATHROOM AND BACK TO BED. IV VANC HUNG PER ORDER AT THIS TIME. PATIENT VOICES NO COMPLAINTS/DENIES ANY NEEDS. WILL MONITOR. CALL LIGHT IN REACH.
--- NOTE | 2019-01-07 05:15 | NUR ---
Patient will continue with outpatient wound care with Dr. Darling in the wound care center upon discharge.
[2019-01-07 06:33] LABS: BASO # 0.1 10*3/uL (0.0-0.1); BASO % 0.7 % (0.0-1.0); EOS # 0.4 10*3/uL (0.0-0.4); EOS % 4.7 % (1.0-4.0); HEMATOCRIT 42.3 % (42.0-52.0); LYMPH # 2.7 10*3/uL (1.3-4.4); MEAN CELL VOLUME 100.2 fl (80.0-94.0); MEAN CORPUSCULAR HGB 33.2 pg (27.0-31.0); MEAN CORPUSCULAR HGB CONC 33.1 g/dl (33.0-37.0); MEAN PLATELET VOLUME 10.6 fl (9.6-12.3); MONO # 0.6 10*3/uL (0.1-1.0); MONO % 7.8 % (3.0-9.0); NEUT # 3.7 10*3/uL (2.3-7.9); NEUT % 49.5 % (47.0-73.0); PLATELET COUNT AUTOMATED 192 10*3/uL (130-400); RED BLOOD COUNT 4.22 10*6/uL (4.50-5.90); RED CELL DISTRI WIDTH 12.1 % (0-14.5); WHITE BLOOD COUNT 7.4 10*3/uL (4.8-10.8)
[2019-01-07 06:38] LABS: BUN 11 mg/dl (7-24); CHLORIDE 103 mmol/L (98-107); CREATININE 0.91 mg/dL (0.70-1.30); POTASSIUM 4.3 mmol/L (3.5-5.1); SODIUM 140 mmol/L (136-145)
--- NOTE | 2019-01-07 07:19 | NUR ---
[facility] wound vac authorization form given to Dr. Aguirre to complete and have attending sign. Awaiting completed form to fax for insurance authorization.
[2019-01-07] MEDS ORDERED: Ipratropium Brom3 ML NEB (07:24)
[2019-01-07] MEDS ORDERED: TRULICITY0.75 MG/0. SC (07:24)
--- NOTE | 2019-01-07 07:30 | NUR ---
Barrel Cutter in to see patient. Discussed home health care services, home IV antibiotics, and wound vac. Patient verbalized an understanding to all of the above and is able to give his own IV antibiotics as he has done them before. Informed [facility] RN will come in and teach him how to give the IV antibiotics and change his foot dressing he verbalized an understanding. When medically stable he will be discharged to home with an [facility] RN.
--- NOTE | 2019-01-07 07:46 | NUR ---
Faxed Vancomycin and Zosyn prescriptions to [facility]. Awaiting return call.
--- NOTE | 2019-01-07 07:58 | NUR ---
Faxed home health order to [facility]
--- NOTE | 2019-01-07 08:00 | NUR ---
PT RESTING IN BED. NO DISTRESS NOTED. WILL MONITOR
--- NOTE | 2019-01-07 08:02 | NUR ---
Faxed nebulizer prescription to [facility]. Awaiting return call.
--- NOTE | 2019-01-07 09:44 | NUR ---
PT REQUESTED AND GIVEN NORCO FOR C.O LEFT LE PAIN PT RATES PAIN 5/10 WILL MONITOR
--- NOTE | 2019-01-07 10:47 | NUR ---
Faxed wound vac authorization to [facility]. Awaiting response.
--- NOTE | 2019-01-07 11:12 | NUR ---
Spoke to Jessica at [facility]. Patient has met his deductible and will be covered at 100%. Informed discharge date undecided at this time as waiting on wound vac authorization.
--- NOTE | 2019-01-07 11:47 | NUR ---
Spoke to Allyson from [facility] regarding nebulizer. Nebulizer will be delivered to patient's house tomorrow.
--- NOTE | 2019-01-07 12:07 | NUR ---
PT STATES THAT [employer] HELPED WILL MONITOR
[2019-01-07 13:08] LABS: ACID FAST SPEC PROCESSING Direct Inoculation (.)
--- NOTE | 2019-01-07 14:29 | NUR ---
Spoke to [facility] at [phone] regarding wound vac authorization. Efficiency Miner states no fax has been received. Faxed authorization form again. Will call back in an hour as directed by communications representative.
--- NOTE | 2019-01-07 16:12 | NUR ---
Spoke to Oscar at [facility] regarding wound vac. He states patient's name was entered incorrectly. He is going to reach out to the rep and get back to CM. Asked if it would be today they would get back to me and he stated it was still early so that is possible. Nurse notified.
--- NOTE | 2019-01-07 16:28 | NUR ---
Spoke to patient regarding company discrepancy in wound vac. Informed patient his discharge will probably be tomorrow morning and he verbalized an understanding.
--- NOTE | 2019-01-07 20:08 | NUR ---
PO NORCO ADMINISTERED PER PRN ORDER FOR C/O PAIN IN L FOOT/LEG RATED 6/10. WILL MONITOR. CALL LIGHT WITHIN REACH.
--- NOTE | 2019-01-07 23:35 | NUR ---
ASSUME CARE OF PATIENT. RESTING COMFORTABLY IN BED AT THIS TIME. PLEASANT, COOPERATIVE. WOUND VAC MAINTAINED. NO VOICED COMPLAINTS. BED IN LOW POSITION. WHEELS LOCKED, CALL LIGHT IN REACH.
[2019-01-08] VITALS: BP 156/81
--- NOTE | 2019-01-08 04:03 | NUR ---
SLEEPING. WOUND VAC MAINTAINED. CALL LIGHHT IN REACH
[2019-01-08 06:30] LABS: BASO % 0.5 % (0.0-1.0); EOS # 0.4 10*3/uL (0.0-0.4); EOS % 5.2 % (1.0-4.0); HEMATOCRIT 41.8 % (42.0-52.0); HEMOGLOBIN 13.5 g/dl (14.0-18.0); LYMPH # 2.3 10*3/uL (1.3-4.4); LYMPH % 31.4 % (27.0-41.0); MEAN CELL VOLUME 100.5 fl (80.0-94.0); MEAN CORPUSCULAR HGB 32.5 pg (27.0-31.0); MEAN CORPUSCULAR HGB CONC 32.3 g/dl (33.0-37.0); MEAN PLATELET VOLUME 10.6 fl (9.6-12.3); MONO # 0.5 10*3/uL (0.1-1.0); MONO % 7.1 % (3.0-9.0); NEUT # 4.1 10*3/uL (2.3-7.9); NEUT % 55.4 % (47.0-73.0); PLATELET COUNT AUTOMATED 176 10*3/uL (130-400); RED BLOOD COUNT 4.16 10*6/uL (4.50-5.90); RED CELL DISTRI WIDTH 12.1 % (0-14.5); WHITE BLOOD COUNT 7.3 10*3/uL (4.8-10.8)
[2019-01-08 07:05] LABS: BUN 10 mg/dl (7-24); CHLORIDE 104 mmol/L (98-107); CREATININE 0.88 mg/dL (0.70-1.30); POTASSIUM 4.1 mmol/L (3.5-5.1); SODIUM 138 mmol/L (136-145)
[2019-01-08 08:00] VITALS: BP 122/64; BP 122/78
--- NOTE | 2019-01-08 08:00 | NUR ---
Spoke to Nani at [facility]. She states the wound vac is pending. Auth # [id number]. She states she is going to change delivery to the hospital instead of patient's home as the hospital will be able to get the wound vac faster. Home will take at least a day to overnight the wound vac. Awaiting return call.
--- NOTE | 2019-01-08 08:51 | NUR ---
Spoke to Kellen from [facility] regarding pending wound vac.
--- NOTE | 2019-01-08 08:52 | NUR ---
Spoke to Elana at [facility] regarding pending wound vac.
--- NOTE | 2019-01-08 08:56 | NUR ---
Dr. Aguirre changed dressing order. New order faxed to [facility].
[2019-01-08 12:00] VITALS: BP 156/107
--- NOTE | 2019-01-08 13:20 | NUR ---
Spoke to Guerita at [facility]. They need wound measurements, any tunneling or undermining, muscle, tendon, or bone exposure. Contacted Dr. Aguirre. Awaiting return call.
--- NOTE | 2019-01-08 13:38 | NUR ---
Spoke to Sandeep at [facility] regarding wound measurements received from Dr. Aguirre. No tunneling or undermining. Bone exposed within wound. 5.1cm x 2cm x 3.1cm. Awaiting return call.
--- NOTE | 2019-01-08 13:41 | NUR ---
Spoke to Jessica garcia [facility]. Informed wound vac is still pending.
--- NOTE | 2019-01-08 13:51 | NUR ---
Spoke to Kellen at [facility] regarding pending wound vac.
--- NOTE | 2019-01-08 14:45 | NUR ---
NORCO GIVEN FOR C/O LT FOOT PAIN. WILL MONITOR.
--- NOTE | 2019-01-08 15:00 | NUR ---
Abrasives Sales Representative in to see patient. Informed patient wound vac is still pending. He states he doesn't have a ride after noon because his girlfriend works [employer]. When wound vac is obtained patient will be discharged.
--- NOTE | 2019-01-08 15:27 | NUR ---
Spoke to Chaitanya at [facility] regarding wound measurements. Wound measurements given. Chaitanya states he will update the file and someone will return call.
--- NOTE | 2019-01-08 15:50 | NUR ---
JUHI EFFECTIVE PER PT.
[2019-01-08 16:00] VITALS: BP 157/88
[2019-01-08 20:00] VITALS: BP 162/83
--- NOTE | 2019-01-08 21:02 | NUR ---
PATIENT MEDICATED WITH PRN NORCO ORDERD FOR C/O LEFT FOOT PAIN RATED 6/10
--- NOTE | 2019-01-08 22:00 | NUR ---
EARLIER NORCO EFFECTIVE PER PT
[2019-01-09] VITALS: BP 160/86
[2019-01-09 06:47] LABS: BASO # 0.1 10*3/uL (0.0-0.1); BASO % 0.7 % (0.0-1.0); EOS # 0.4 10*3/uL (0.0-0.4); EOS % 5.9 % (1.0-4.0); HEMOGLOBIN 13.6 g/dl (14.0-18.0); LYMPH # 2.3 10*3/uL (1.3-4.4); LYMPH % 33.5 % (27.0-41.0); MEAN CELL VOLUME 99.5 fl (80.0-94.0); MEAN CORPUSCULAR HGB 32.2 pg (27.0-31.0); MEAN CORPUSCULAR HGB CONC 32.4 g/dl (33.0-37.0); MEAN PLATELET VOLUME 10.6 fl (9.6-12.3); MONO # 0.5 10*3/uL (0.1-1.0); MONO % 6.6 % (3.0-9.0); NEUT # 3.7 10*3/uL (2.3-7.9); PLATELET COUNT AUTOMATED 185 10*3/uL (130-400); RED BLOOD COUNT 4.22 10*6/uL (4.50-5.90); WHITE BLOOD COUNT 6.9 10*3/uL (4.8-10.8)
[2019-01-09 07:17] LABS: BUN 13 mg/dl (7-24); CHLORIDE 105 mmol/L (98-107); CREATININE 0.86 mg/dL (0.70-1.30); SODIUM 139 mmol/L (136-145)
--- NOTE | 2019-01-09 07:55 | NUR ---
NORCO GIVEN FOR C/O LLE PAIN. RATES 7/10 ON PAIN SCALE. WILL MONITOR.
--- NOTE | 2019-01-09 08:17 | NUR ---
Spoke to Margaret at [facility]. Team is not currently there, they open at 8am LINTER OPERATOR. Faxed post op note, H&P, and PNs. Awaiting return call. Can check order status at [email or web address] with order number [id number].
--- NOTE | 2019-01-09 08:30 | NUR ---
Red Cap in to see patient. No new needs or request at this time. Discussed pending wound vac and he is understandable. CM stated will keep him updated in wound vac progress.
--- NOTE | 2019-01-09 08:45 | NUR ---
PATIENT EXPRESSES PAIN RELIEF AT THIS TIME AND DENIES ANY NEEDS.
--- NOTE | 2019-01-09 10:46 | NUR ---
Spoke to Jeanna at [facility] regarding pending wound vac. She states they have all of the needed information and she is going to send this over to Meme, the service rep, and her team. Either Meme or someone from her team will get back to CM. Stated CM needs to get patient discharged to home today. Notified Kellen at [facility] and Jessica at [facility] of pending wound vac.
--- NOTE | 2019-01-09 11:31 | NUR ---
Spoke to Brian from [facility]. Wound vac will be here between 2pm - 4pm. Notified Kellen at [facility] and Jessica at [facility]. Patient notified.
--- NOTE | 2019-01-09 11:56 | NUR ---
Nurse notified of wound vac being delivered between 2 and 4 pm. Patient states he will check with his father for a ride home. His dad lives in [place].
[2019-01-09 12:00] VITALS: BP 130/68
--- NOTE | 2019-01-09 15:40 | NUR ---
Notified Kellen at [facility] patient is still currently in house but will be discharging when wound vac arrives. She stated the nurse can come out at late as 6-7 pm. Nurse notified to call [facility] when patient is discharged from the hospital. Notified Jessica at [facility] of waiting on wound vac to be delivered. She said their otr flatbed driver is out and going to deliver IV antibiotics.
--- NOTE | 2019-01-09 15:49 | NUR ---
Wound vac has arrived to hospital floor. Spoke to Manuel at [facility] regarding patient has Vancomycin running which will take 2 hours. A nurse will be at patient's home between 7pm and 7:30pm per Manuel. Patient's ride will arrive between 6pm and 6:30pm. Nurse notified.
[2019-01-09 16:00] VITALS: BP 141/85
--- NOTE | 2019-01-09 18:32 | NUR ---
[facility] Discharge instructions reviewed with patient/family. Patient receptive and verbalizes understanding. Follow-up care arranged. Written instructions given to patient/family. UMESH ESCOBEDO
[2019-02-18 08:08] LABS: ACID FAST CULTURE Negative (.)
== END 2019-01-09 18:32 | disposition home or self-care (01) | DRG 478 ==
LOC: ED 19:40 → EDHOLD 01-04 00:32 → 4E 01-04 00:32
PROVIDERS: Nurse Practitioner Family; Podiatrist; Student in an Organized Health Care Education/Training Program; ADMIT Internal Medicine
PROC: 0Y9N0ZZ Drainage of Left Foot, Open Approach (ICD-10-PCS; 2019-01-04)
PROC: 0QBP0ZX Excision of Left Metatarsal, Open Approach, Diagnostic (ICD-10-PCS; principal; 2019-01-05)
PROC: 0Y9N0ZZ Drainage of Left Foot, Open Approach (ICD-10-PCS; principal; 2019-01-05)
PROC: 02HV33Z Insertion of Infusion Device into Superior Vena Cava, Percutaneous Approach (ICD-10-PCS; 2019-01-06)
DX: T87.44 Infection of amputation stump, left lower extremity (principal); M86.272 Subacute osteomyelitis, left ankle and foot; L02.612 Cutaneous abscess of left foot; M86.672 Other chronic osteomyelitis, left ankle and foot; M86.172 Other acute osteomyelitis, left ankle and foot; F33.0 Major depressive disorder, recurrent, mild; E11.69 Type 2 diabetes mellitus with other specified complication; E11.42 Type 2 diabetes mellitus with diabetic polyneuropathy; F17.210 Nicotine dependence, cigarettes, uncomplicated; E11.621 Type 2 diabetes mellitus with foot ulcer; L97.524 Non-pressure chronic ulcer of other part of left foot with necrosis of bone; J44.9 Chronic obstructive pulmonary disease, unspecified; I10 Essential (primary) hypertension; Z83.3 Family history of diabetes mellitus; Z82.5 Family history of asthma and other chronic lower respiratory diseases; Z87.81 Personal history of (healed) traumatic fracture; Z89.421 Acquired absence of other right toe(s); Y83.5 Amputation of limb(s) as the cause of abnormal reaction of the patient, or of later complication, without mention of misadventure at the time of the procedure; Y92.89 Other specified places as the place of occurrence of the external cause

== ENCOUNTER 2019-02-04 12:13 | Emergency (ER) | payer BC ==
[~2019-02-04] VITALS: Ht 180.3 cm; Wt 104.3 kg
[~2019-02-04 12:13] MED LIST changes: +Ipratropium Brom3 ML NEB
[2019-02-04 12:14] VITALS: BP 159/82
== END 2019-02-04 15:04 | disposition home or self-care (01) ==
LOC: ED 12:13
DX: T82.898A Other specified complication of vascular prosthetic devices, implants and grafts, initial encounter (principal); J44.9 Chronic obstructive pulmonary disease, unspecified; E11.621 Type 2 diabetes mellitus with foot ulcer; E11.40 Type 2 diabetes mellitus with diabetic neuropathy, unspecified; F17.210 Nicotine dependence, cigarettes, uncomplicated; Z98.890 Other specified postprocedural states; Z79.899 Other long term (current) drug therapy; Y92.89 Other specified places as the place of occurrence of the external cause

== ENCOUNTER 2019-07-24 14:08 | Inpatient (IN) | payer OTHER ==
[~2019-07-24] VITALS: Ht 180.3 cm; Wt 104.1 kg
[2019-07-24 15:40] VITALS: BP 145/72
[2019-07-24 15:41] VITALS: BP 145/72
[2019-07-24 16:28] LABS: BASO % 0.5 % (0.0-1.0); EOS # 0.2 10*3/uL (0.0-0.4); EOS % 1.8 % (1.0-4.0); HEMATOCRIT 44.7 % (42.0-52.0); HEMOGLOBIN 14.9 g/dl (14.0-18.0); LYMPH # 1.9 10*3/uL (1.3-4.4); LYMPH % 21.4 % (27.0-41.0); MEAN CORPUSCULAR HGB 34.3 pg (27.0-31.0); MEAN CORPUSCULAR HGB CONC 33.3 g/dl (33.0-37.0); MEAN PLATELET VOLUME 10.6 fl (9.6-12.3); MONO # 0.7 10*3/uL (0.1-1.0); MONO % 7.9 % (3.0-9.0); NEUT # 5.9 10*3/uL (2.3-7.9); NEUT % 68.2 % (47.0-73.0); PLATELET COUNT AUTOMATED 184 10*3/uL (130-400); RED BLOOD COUNT 4.34 10*6/uL (4.50-5.90); RED CELL DISTRI WIDTH 13.4 % (0-14.5); WHITE BLOOD COUNT 8.7 10*3/uL (4.8-10.8)
[2019-07-24 16:37] LABS: INTERNATIONAL NORM RATIO 0.9 (2.0-3.5)
[2019-07-24 16:42] LABS: ALBUMIN 3.3 gm/dl (3.1-4.5); ALKALINE PHOSPHATASE 71 U/L (45-117); BUN 16 mg/dl (7-24); CHLORIDE 103 mmol/L (98-107); CREATININE 0.96 mg/dL (0.70-1.30); POTASSIUM 4.2 mmol/L (3.5-5.1); SGOT/AST 15 IU/L (3-35); SGPT/ALT 18 U/L (12-78); SODIUM 137 mmol/L (136-145)
[2019-07-24 16:48] LABS: ETHYL ALCOHOL < 3.0 mg/dl (<3)
[2019-07-24 20:00] VITALS: BP 116/67
[2019-07-24 20:40] LABS: BILIRUBIN NEGATIVE (NEGATIVE); BLOOD NEGATIVE (NEGATIVE); CLARITY CLEAR (CLEAR); COLOR YELLOW (YELLOW); GLUCOSE NEGATIVE (NEGATIVE); KETONE NEGATIVE (NEGATIVE); LEUKO ESTERASE NEGATIVE (NEGATIVE); NITRITE NEGATIVE (NEGATIVE); PH 5.5 (5.0-9.0); SPECIFIC GRAVITY >= 1.030 (1.005-1.030); UROBILINOGEN 0.2 E.U./dl (0.2-1.0)
[2019-07-24 20:47] LABS: URINE AMPHETAMINES < 1000 (1000ng/ml); URINE BARBITURATES < 200 (200ng/ml); URINE BENZODIAZEPINES < 200 (200ng/ml); URINE CANNABINOIDS (THC) < 50 (50ng/ml); URINE COCAINE < 300 (300ng/ml); URINE METHADONE < 300 (300ng/ml); URINE OPIATES < 300 (300ng/ml)
[2019-07-24 20:51] LABS: URINE PHENCYCLIDINE < 25 (25ng/ml)
[2019-07-24 20:54] LABS: BACTERIA TRACE; EPITHELIAL CELLS 0-2; MUCOUS TRACE; RBC 0-2 rbc/hpf (0-2); WBC 0-2 wbc/hpf (0-5)
[2019-07-25] VITALS: BP 134/84
[2019-07-25 12:00] VITALS: BP 122/83
[2019-07-25 16:00] VITALS: BP 133/77
[2019-07-25 20:00] VITALS: BP 128/77
[2019-07-26] VITALS: BP 130/70
[2019-07-26 08:00] VITALS: BP 123/80
[2019-07-26] MEDS ORDERED: ENALAPRIL MALEAT5 MG PO (11:11)
[2019-07-26] MEDS ORDERED: COMBIVENT RESPIM4 GM INH (11:12)
[2019-07-26 12:00] VITALS: BP 128/73
[2019-07-26 16:00] VITALS: BP 128/81
[2019-07-26 20:00] VITALS: BP 138/78
[2019-07-27] VITALS: BP 126/74
[2019-07-27 06:52] LABS: BASO % 0.5 % (0.0-1.0); EOS # 0.2 10*3/uL (0.0-0.4); EOS % 2.3 % (1.0-4.0); HEMOGLOBIN 14.3 g/dl (14.0-18.0); LYMPH # 1.9 10*3/uL (1.3-4.4); LYMPH % 21.8 % (27.0-41.0); MEAN CELL VOLUME 103.6 fl (80.0-94.0); MEAN CORPUSCULAR HGB 34.5 pg (27.0-31.0); MEAN CORPUSCULAR HGB CONC 33.3 g/dl (33.0-37.0); MEAN PLATELET VOLUME 10.5 fl (9.6-12.3); MONO # 0.7 10*3/uL (0.1-1.0); MONO % 7.6 % (3.0-9.0); NEUT # 5.9 10*3/uL (2.3-7.9); NEUT % 67.3 % (47.0-73.0); PLATELET COUNT AUTOMATED 191 10*3/uL (130-400); RED BLOOD COUNT 4.15 10*6/uL (4.50-5.90); RED CELL DISTRI WIDTH 12.9 % (0-14.5); WHITE BLOOD COUNT 8.7 10*3/uL (4.8-10.8)
[2019-07-27 07:05] LABS: CREATININE 0.84 mg/dL (0.70-1.30)
[2019-07-27 12:00] VITALS: BP 122/65
[2019-07-27 16:00] VITALS: BP 118/69
== END 2019-07-27 18:06 | disposition home or self-care (01) | DRG 775 ==
LOC: 5E 14:08
PROVIDERS: Internal Medicine; ADMIT Emergency Medicine
DX: F10.230 Alcohol dependence with withdrawal, uncomplicated (principal); D75.89 Other specified diseases of blood and blood-forming organs; E66.9 Obesity, unspecified; E44.1 Mild protein-calorie malnutrition; J44.9 Chronic obstructive pulmonary disease, unspecified; E11.65 Type 2 diabetes mellitus with hyperglycemia; E11.69 Type 2 diabetes mellitus with other specified complication; M86.672 Other chronic osteomyelitis, left ankle and foot; E11.42 Type 2 diabetes mellitus with diabetic polyneuropathy; F17.210 Nicotine dependence, cigarettes, uncomplicated; F32.9 Major depressive disorder, single episode, unspecified; Z71.6 Tobacco abuse counseling; Z89.422 Acquired absence of other left toe(s); Z83.3 Family history of diabetes mellitus; Z79.899 Other long term (current) drug therapy; Z59.0 Homelessness; Z68.33 Body mass index [BMI] 33.0-33.9, adult

== ENCOUNTER 2019-07-29 16:09 | Inpatient (IN) | payer OTHER ==
[~2019-07-29] VITALS: Ht 180 cm; Wt 107.2 kg
[~2019-07-29 16:09] MED LIST changes: +COMBIVENT RESPIM4 GM INH; +ENALAPRIL MALEAT5 MG PO
[2019-07-29 16:10] VITALS: BP 100/61
[2019-07-29 16:54] LABS: BASO % 0.4 % (0.0-1.0); EOS # 0.2 10*3/uL (0.0-0.4); EOS % 2.1 % (1.0-4.0); HEMATOCRIT 43.6 % (42.0-52.0); HEMOGLOBIN 14.5 g/dl (14.0-18.0); LYMPH # 1.7 10*3/uL (1.3-4.4); LYMPH % 18.8 % (27.0-41.0); MEAN CELL VOLUME 101.9 fl (80.0-94.0); MEAN CORPUSCULAR HGB 33.9 pg (27.0-31.0); MEAN CORPUSCULAR HGB CONC 33.3 g/dl (33.0-37.0); MONO # 0.8 10*3/uL (0.1-1.0); NEUT # 6.4 10*3/uL (2.3-7.9); NEUT % 69.5 % (47.0-73.0); PLATELET COUNT AUTOMATED 213 10*3/uL (130-400); RED BLOOD COUNT 4.28 10*6/uL (4.50-5.90); RED CELL DISTRI WIDTH 12.7 % (0-14.5); WHITE BLOOD COUNT 9.2 10*3/uL (4.8-10.8)
[2019-07-29 17:09] LABS: ALBUMIN 3.2 gm/dl (3.1-4.5); ALKALINE PHOSPHATASE 55 U/L (45-117); BUN 17 mg/dl (7-24); CHLORIDE 100 mmol/L (98-107); CREATININE 0.94 mg/dL (0.70-1.30); POTASSIUM 4.1 mmol/L (3.5-5.1); SGOT/AST 13 IU/L (3-35); SGPT/ALT 21 U/L (12-78); SODIUM 134 mmol/L (136-145); TOTAL PROTEIN 8.1 gm/dL (6.4-8.2)
--- NOTE | 2019-07-29 20:00 | NUR ---
DR COLEMAN CALLED REGARDING PT'S ADMISSION. ORDERS RECIEVED.
--- NOTE | 2019-07-29 20:00 | NUR ---
A 49, admitted to , under the services of AYDE Arriaga MD with a diagnosis of OSTEOMYELITIS. Chief complaint is INFECTION. Patient arrived via wheel chair from ER. Monitor applied. Initial assessment completed. Vital signs taken and recorded. AYDE ARRIAGA MD notified of admission to the unit. Orders received. See assessment for past medical history, medications and allergies. Patient and/or family oriented to unit. [address] visitation policy reviewed. Clothing/patient valuable form completed. CA ARANA
--- NOTE | 2019-07-29 20:38 | NUR ---
2ND WOUND NOTED TO THE PATIENTS 4TH TOE ON RIGHT FOOT. PATIENT STATES THAT HE DID NOT NOTICE IT UNTIL HE WAS IN THE ER TODAY. MEASUREMENTS AND PHOTO TAKEN.
--- NOTE | 2019-07-29 21:03 | NUR ---
PT MEDICATED WITH PRN DILAUDID FOR C/O PAIN OF THE RIGHT FOOT RATED A 9/10. WILL MONITOR FOR EFFECTIVENESS.
--- NOTE | 2019-07-29 22:00 | NUR ---
PT RESTING COMFORTABLY IN BED AT THIS TIME. NO S/S OF DISTRESS NOTED. PRN DILAUDID EFFECTIVE.
[2019-07-30] VITALS: BP 90/52
--- NOTE | 2019-07-30 05:15 | NUR ---
PT IS AWAKE AND SITTING UP IN BED AT THIS TIME. HE STATES THAT HE IS NOT EXPERIENCING ANY PAIN AT THE MOMENT. BED IS LOW, CALL LIGHT WITHIN REACH. WILL CONTINUE TO MONITOR.
--- NOTE | 2019-07-30 05:28 | NUR ---
PT'S BLOOD SUGAR CHECKED PRIOR TO ADMINISTRATION OF METFORMIN. RESULTS OF 161.
--- NOTE | 2019-07-30 06:06 | NUR ---
NINFA LOYOLA [id number] Please refer to the physician's history and physical for past medical history, comorbid conditions, and allergies. Diagnosis: OSTEOMYELITIS Enrique Score: 19,LOW OR NO RISK WOUND DESCRIPTIONS: Wound Number: 1 Location of the wound: right 3rd toe Type of wound: unstageable Thickness: Full Size: 0.8cm x 1.2cm x 0.6cm Tunneling: none Undermining: none Sinus Tract: none Presence of Exudate: Purluent Amount: Light Color: Black, brown, red, yellow Odor: Foul Periwound Skin Appearance: Erythema Wound edges: approximated Pain (associated with wound): none at time of assessment How does patient state this happened? pt states he follows with Dr. Caruso and actually has an appointment at 1015 Wound Number: 2 Location of the wound: left 3rd toe Type of wound: unstageable Thickness: Full Size: 0.4cm x 0.3cm x 0.1cm Tunneling: none Undermining: none Sinus Tract: none Presence of Exudate: Serous Amount: Light Color: Brown Odor: None Periwound Skin Appearance: Normal Wound edges: approximated Pain (associated with wound): none at time of assessment How does patient state this happened? pt states he follows with Dr. Caruso and actually has an appointment at 1015 Intact callus noted to left 4th toe. No drainage noted at time of assessment. No open areas noted at time of assessment. Surface the patient is resting on: Isoflex SKIN PREVENTION RECOMMENDATION: 1. Pressure redistribution support surface as appropriate 2. Elevate heels 3. Remove boots/TEDS every shift and reapply 4. Head of bed 30 degrees as tolerated 5. Assess nutrition and hydration 6. Manage moisture 7. Avoid the use of containment devices while in bed 8. Use absorptive products on surfaces limit layers of linens on bed 9. Turn and reposition every 1-2 hours in bed and every 1 hour in chair as tolerated 10. Weight shifts every 15 minutes while up in chair 11. Offloading with pillows or device to keep heels elevated off bed 12. Monitor skin at least every shift 13. Inspect under medical devices twice a day WOUND TREATMENT RECOMMENDATIONS: Consult podiatry since patient follows with Dr. Caruso outside of facility. Venous and arterial studies to ble's due to non-healing wound. Cleanse right 3rd, left 3rd and left 4th toe with betadine and apply dsd daily and prn for soiling. Heel raiser pro boots to bilateral heels while in bed. Patient stated he will follow with Dr. Caruso upon discharge.
--- NOTE | 2019-07-30 07:40 | NUR ---
Wound care recommendations given to Jane Ramos RN who is caring for the patient today to give to Dr. Stern.
[2019-07-30 08:00] VITALS: BP 113/64
--- NOTE | 2019-07-30 08:30 | NUR ---
Display Director in to talk to patient. Patient states lives at home with his parents. There are 2 steps in the home. Physician: Dr. Neil Rosenbaum Pharmacy: [facility] [place] Home health services: none Patient's level of ADLs: MINIMAL ASSIST Patient has working utilities: yes DME: cane, nebulizer Follow-up physician's appointment after d/c: he prefers to make his own follow up appt after discharge Does patient want to access PORTAL?: no Discharge plan discussed with patient. He lives at home with his parents. He is independent in his ADLs and has been ambulating with a cane. Discussed home health care services and he is agreeable if needed. Discussed home IV antibiotics and he is agreeable if needed as he has done them in the past. Discussed short term SNF and he is not agreeable. When medically stable he will be discharged to home. His parents will provide transportation on discharge. RAFFY DALY
[2019-07-30 10:10] LABS: CHOLESTEROL 150 mg/dL (<200); TRIGLYCERIDES 122 mg/dl (<150); VLDL CHOLESTEROL 24 mg/dL (6-40)
[2019-07-30 10:12] LABS: HDL CHOLESTEROL 28 mg/dl (40-60); LDL CHOLESTEROL 98 mg/dL (9-159)
--- NOTE | 2019-07-30 11:06 | NUR ---
MEDICATED WITH DILAUDID ORDERED FOR COMPLAINTS OF PAIN IN RIGHT FOOT AND LEG. RATES PAIN A 6 ON A PAIN SCALE OF 1-10
[2019-07-30 12:00] VITALS: BP 125/73
[2019-07-30 16:00] VITALS: BP 123/78
[2019-07-30 20:00] VITALS: BP 132/82
[2019-07-31] VITALS (8 sets, daily range): BP systolic 100–138; BP diastolic 47–87
--- NOTE | 2019-07-31 09:00 | NUR ---
Writer Producer in to see patient. No new needs or request at this time. Discharge plan undecided at this time. Surgery scheduled for today.
--- NOTE | 2019-07-31 09:40 | NUR ---
MEDICATED WITH DILAUDID PER PRN ORDER FOR COMPLAINTS OF RIGHT FOOT PAIN, PT RATES PAIN 04/29. WILL MONITOR FOR EFFECTIVENESS.
--- NOTE | 2019-07-31 11:20 | NUR ---
PT OFF FLOOR FOR SURGERY AT THIS TIME.
--- NOTE | 2019-07-31 12:39 | NUR ---
Nutritional Support Services Note: Pt is in surgery at this time for osteomyelitis. Will follow as needed and when available. Rosy Culver Rdn Ld
--- NOTE | 2019-07-31 13:55 | NUR ---
PT RETURNED FROM SURGERY AT THIS TIME, RESTING COMFORTABLY, DRESSING TO RIGHT FOOT CLEAN AND DRY.
--- NOTE | 2019-07-31 20:00 | NUR ---
PT C/O RIGHT FOOT PAIN, RATES PAIN 7 ON PAIN SCALE 0-10. MEDICATED WITH DILAUDID IV PER PRN ORDER, SEE EMAR. CALL LIGHT IN REACH.
--- NOTE | 2019-07-31 21:57 | NUR ---
CALLED DR. COLEMAN REGARDING PT STATES PAIN MEDICATION DIDN'T WORK WANTING SOMETHIG ELSE. ORDERS HARJIT AND REVIEWED.
--- NOTE | 2019-07-31 22:10 | NUR ---
PT C/O RIGHT FOOT PAIN, RATES PAIN 8 ON PAIN SCALE 0-10. MEDICATED WITH DILAUDID IV PER PRN ORDER, SEE EMAR. CALL LIGHT IN REACH. IVF INFUSING WITH NO PROBLEM.
[2019-08-01] VITALS: BP 140/81
--- NOTE | 2019-08-01 | NUR ---
RESTING IN BED. RESP-EASY AND REGULAR. STATES MEDICATION HELPED BUT STILL HAS ACHING IN FOOOT. IV ANTIBIOTICS INFUSING WITH NO PROBLEM. CALL LIGHT IN REACH. SEE SHIFT ASSESSMENT.
--- NOTE | 2019-08-01 02:30 | NUR ---
PT REQUESTING SLEEPING PILL. MEDICATED WITH AMBIEN PO PER PRN ORDER, SEE EMAR. CALL LIGHT IN REACH.
--- NOTE | 2019-08-01 06:00 | NUR ---
SLEEPING IN BED, AWAKENS EASILY. BSG-250, SEE EMAR. TOLERATED ROUTINE MED WITH NO PROBLEM. IVF INFUSING WITH NO PROBLEM. CALL LIGHT IN REACH.
[2019-08-01 06:23] LABS: BUN 9 mg/dl (7-24)
[2019-08-01 08:00] VITALS: BP 124/64
--- NOTE | 2019-08-01 11:16 | NUR ---
DR. BUI ANSWERING SERVICE NOTIFIED OF CONSULT.
[2019-08-01 16:00] VITALS: BP 135/83
--- NOTE | 2019-08-01 22:13 | NUR ---
Patient resting quietly with no c/o discomfort. Respirations easy and regular. Vital signs stable. No overt distress. CALL LIGHT WITHIN REACH HISSOM,MARGARITA
[2019-08-02] VITALS: BP 155/85
--- NOTE | 2019-08-02 02:02 | NUR ---
PATIENT COMPLAINS OF 8/10 FOOT PAIN. MEDICATE PER ORDER. WILL CONTINUE TO MONITOR FOR RELIEF. VOICES NO OTHER CONCERNS AT THIS TIME. RESTING IN BED. CALL LIGHT WITHIN REACH
--- NOTE | 2019-08-02 03:44 | NUR ---
Patient sleeping. Respirations relaxed and easy. Siderails up . [place] on. CALL LIGHT WITHIN REACH HISSOM,MARGARITA
--- NOTE | 2019-08-02 05:23 | NUR ---
24 HR chart check completed.
--- NOTE | 2019-08-02 06:55 | NUR ---
BLOOD SUGAR WAS 159
[2019-08-02] MEDS ORDERED: CHANTIX1 M1 PO (07:19)
[2019-08-02] MEDS ORDERED: LISINOPRIL10 M1 PO (07:19)
[2019-08-02] MEDS ORDERED: XARELTO2.5 MG PO (07:19)
[2019-08-02] MEDS ORDERED: GLIMEPIRIDE4 M1 PO ×2 (07:19→07:20)
[2019-08-02] MEDS ORDERED: SIMVASTATIN10 MG PO (07:19)
[2019-08-02] MEDS ORDERED: CIPRO500 MG PO (07:24)
[2019-08-02 08:00] VITALS: BP 132/68
[2019-08-02 09:07] LABS: BUN 8 mg/dl (7-24); CHLORIDE 107 mmol/L (98-107); CREATININE 0.83 mg/dL (0.70-1.30); SODIUM 139 mmol/L (136-145)
--- NOTE | 2019-08-02 15:57 | NUR ---
24 HOUR CHART CHECK COMPLETE.
[2019-08-02 16:00] VITALS: BP 146/80
--- NOTE | 2019-08-02 16:18 | NUR ---
PATIENT IS AAOX3 RESTING IN BED WITH EASY AND REGULAR RESPERS ON ROOM AIR. ASSESSMENT IS COMPLETE WITH NO C/O OR S/S OF DISTRESS NOTED AT THIS TIME. BED IS LOW, LOCKED, AND CALL LIGHT IS WITHIN REACH. WILL CONTINUE TO MONITOR, SEE SHIFT ASSESSMENT.
--- NOTE | 2019-08-02 16:36 | NUR ---
INFECTIOUS DISEASE IN TO SEE PATIENT.
--- NOTE | 2019-08-02 16:36 | NUR ---
BLOOD GLUCOSE 157.
--- NOTE | 2019-08-02 16:47 | NUR ---
INFECTIOUS DISEASE STATED PATIENT WOULD NEED SURGICAL SHOE FOR RIGHT FOOT, AND DR. ARMENDARIZ WILL BE IN TO SEE PATIENT TOMORROW. DRESSING CHANGED TO RIGHT FOOT WELL.
--- NOTE | 2019-08-02 22:02 | NUR ---
PRN SHEILAIEN GIVEN FOR C/O INSOMNIA. CALL LIGHT IS WITHIN REACH, WILL MONITOR EFFECT.
[2019-08-03] VITALS: BP 152/77
--- NOTE | 2019-08-03 05:42 | NUR ---
PRN DILAUDID GIVEN AT THIS TIME FOR C/O RIGHT FOOT PAIN. PATIENT TOLERATED WELL. CALL LIGHT IS WITHIN REACH WILL MONITOR EFFECT.
[2019-08-03 06:29] LABS: BASO # 0.1 10*3/uL (0.0-0.1); BASO % 0.7 % (0.0-1.0); EOS # 0.3 10*3/uL (0.0-0.4); EOS % 3.5 % (1.0-4.0); HEMATOCRIT 42.5 % (42.0-52.0); LYMPH # 1.9 10*3/uL (1.3-4.4); LYMPH % 24.6 % (27.0-41.0); MEAN CELL VOLUME 101.7 fl (80.0-94.0); MEAN CORPUSCULAR HGB 33.5 pg (27.0-31.0); MEAN CORPUSCULAR HGB CONC 32.9 g/dl (33.0-37.0); MEAN PLATELET VOLUME 10.4 fl (9.6-12.3); MONO # 0.6 10*3/uL (0.1-1.0); MONO % 7.6 % (3.0-9.0); NEUT # 4.9 10*3/uL (2.3-7.9); NEUT % 63.3 % (47.0-73.0); PLATELET COUNT AUTOMATED 298 10*3/uL (130-400); RED BLOOD COUNT 4.18 10*6/uL (4.50-5.90); RED CELL DISTRI WIDTH 12.6 % (0-14.5); WHITE BLOOD COUNT 7.7 10*3/uL (4.8-10.8)
--- NOTE | 2019-08-03 06:30 | NUR ---
PRN DIALUDID EFFECTIVE PER PATIENT. CALL LIGHT IS WITHIN REACH.
[2019-08-03 08:00] VITALS: BP 128/90
--- NOTE | 2019-08-03 08:18 | NUR ---
DR COLEMAN ROUNDED,ORDERS RECIEVED. DRESSING CHANGE TO RIGHT FOOT COMPLETED PER PHYSICIAN ORDER.PT TOLERATED WELL.THIRD TOE AMPUTATION RED. SUTURES APPEAR TO BE INTACT.DENIES PAIN AT THIS TIME.CALL LIGHT IN REACH.
--- NOTE | 2019-08-03 08:56 | NUR ---
Spoke with Dr. Mckenna regarding wound care recommendations stated patient had procedure on saturday and was seen saturday and saturday and no wound care orders in for patient he stated he will put them in
--- NOTE | 2019-08-03 09:00 | NUR ---
Advertising Designer in to see patient. Discussed patient NOT needing IV antibiotics or a wound vac. He denies any home needs at this time. He is awaiting his discharge.
--- NOTE | 2019-08-03 09:30 | NUR ---
PT OFF FLOOR VIA TRANSPORT FOR MRI RIGHT FOOT.
--- NOTE | 2019-08-03 10:13 | NUR ---
Nutritional Support Services Note: Pt with Dx of osteomyelitis, amputation of toe. Appetite is good for meals, he is eating 100% of all meals. He receives an 1800cal diabetic diet as ordered. He receives a snack nightly. Encourage compliance to diet for better BS control. No other nutrition intervention needed at this time. Will follow as needed. Rosy Culver Rdn Ld
--- NOTE | 2019-08-03 14:34 | NUR ---
DILAUDID 1 MG GIVEN FOR C/O RIGHT FOOT PAIN,04/29.
--- NOTE | 2019-08-03 14:50 | NUR ---
38 year old MALE admitted to room # 401 for stabilization. Reports an addiction to ALCOHOL last used 4 hours prior to admission. Compliant with admission procedure. Patient denies any anxiety, but is unable to sit still, taps toes to floor continuously, looks about room, unable to focus eyes on nurse during interview. See assessment forms for additional information about patient status.
--- NOTE | 2019-08-03 15:10 | NUR ---
MEDS RECONCILED AT BEDSIDE WITH PT.
[2019-08-03 16:00] VITALS: BP 149/78
--- NOTE | 2019-08-03 19:32 | NUR ---
24 HOUR CHART CHECK COMPLETED
[2019-08-03 20:00] VITALS: BP 144/78
--- NOTE | 2019-08-03 20:05 | NUR ---
PATIENT ASSESSMENT COMPLETED AT THIS TIME WITHOUT INCIDENT. PATIENT DENIES ANY CHEST PAIN OR SHORTNESS OF BREATH AT THIS TIME. CALL LIGHT WITHIN REACH, WILL CONTINUE TO MONITOR.
--- NOTE | 2019-08-03 22:08 | NUR ---
PATIENT MEDICATED WITH IV DILAUDID AT THIS TIME FOR COMPLAINT OF FOOT PAIN 04/29. WILL CONTINUE TO MONITOR AND REASSESS PAIN.
--- NOTE | 2019-08-03 22:40 | NUR ---
PATIENT STATED THAT PAIN WENT FROM A 7 DOWN TO A 4 AFTER BEING MEDICATED WITH IV DILAUDID. WILL CONTINUE TO MONITOR. CALL LIGHT WITHIN REACH.
[2019-08-04] VITALS: BP 113/64
--- NOTE | 2019-08-04 04:10 | NUR ---
PATIENT RESTING IN BED IN A POSITION OF COMFORT, RESPIRATIONS EASY AND NON-LABORED. CALL LIGHT WITHIN REACH. WILL CONTINUE TO MONITOR.
[2019-08-04 08:00] VITALS: BP 106/61; BP 134/78
--- NOTE | 2019-08-04 08:30 | NUR ---
Partition Assembly Machine Operator in to see patient. No new needs or request at this time. He denies any home needs. When medically stable he will be discharged to home.
[2019-08-04] MEDS ORDERED: CUBICIN RF500 MG IV (14:50)
--- NOTE | 2019-08-04 15:00 | NUR ---
Faxed Daptomycin 500 mg IV daily prescription to [facility] for cost check. Awaiting response.
--- NOTE | 2019-08-04 15:08 | NUR ---
Sustainability Coach in to see patient. Discussed home IV antibiotics as prescribed by Dr. Velazquez. He is agreeable and is able to administer the antibiotics himself as he had many times in the past. Discussed home health care services and he has had [facility] in the past. Spoke to Kellen at [facility] and as the patient is staying at his parents in [place], [facility] is not able to follow him there. Discussed other home health agencies with patient and he chose [facility]. Faxed referral to [facility]. Parent's address: [address] [place] [id number]
[2019-08-04 16:00] VITALS: BP 117/71
--- NOTE | 2019-08-04 16:09 | NUR ---
DILAUDID GIVEN FOR C/O RT FOOT PAIN. RATES 7/10 ON PAIN SCALE. WILL MONITOR.
--- NOTE | 2019-08-04 17:10 | NUR ---
DILAUDID EFFECTIVE PER PT.
--- NOTE | 2019-08-04 18:59 | NUR ---
PT IS AWAKE AND SITTING UP IN BED. NO S/S OF DISTRESS NOTED. PT STATES THAT HE IS FEELING WELL AND EAGER TO BE DISCHARGED TOMORROW. EDUCATION PROVIDED ABOUT NPO STATUS AFTER MIDNIGHT. CALL LIGHT WITHIN REACH, WILL CONTINUE TO MONITOR.
[2019-08-05] VITALS: BP 142/73
--- NOTE | 2019-08-05 07:52 | NUR ---
PT RESTING IN BED. NO DISTRESS NOTED. WILL MONITOR
[2019-08-05 08:00] VITALS: BP 121/70
--- NOTE | 2019-08-05 09:19 | NUR ---
Spoke to Elana at [facility] regarding status of home IV antibiotics. Staff are currently in a morning meeting. Left message. Awaiting return call.
--- NOTE | 2019-08-05 09:21 | NUR ---
Spoke to Elana at [facility] regarding home health status. Transferred to liaelis Varner. Refaxing home health order.
--- NOTE | 2019-08-05 09:26 | NUR ---
PT REQUESTED AND GIVEN DILAUDID FOR LE PAIN WILL MONITOR
--- NOTE | 2019-08-05 10:05 | NUR ---
SPOKE WITH DR COLEMAN REGARDING XRAY
--- NOTE | 2019-08-05 10:40 | NUR ---
Discharge instructions reviewed with patient/family. Patient receptive and verbalizes understanding. Follow-up care arranged. Written instructions given to patient/family. MORALES DAWN
--- NOTE | 2019-08-05 11:12 | NUR ---
Spoke to Janelle at [facility] regarding home IV antibiotics. Patient is [facility] and [facility] have a limited contract with them. Janelle faxed all of patient's information to [facility]. Awaiting return call.
--- NOTE | 2019-08-05 11:40 | NUR ---
Spoke to Gardenia at [facility], , regarding referral. They are able to take the patient and start of care will be tomorrow 08/06. Gardenia states the patient will be discharged from their service if he is caught drinking or is drunk, if he doesn't follow up with his appts, or if he misses 3 sessions with them. Spoke to patient, , regarding his home IV antibiotics are covered at 100% per Trice at [facility] and his start of care will be tomorrow 08/06. Left message for Trice at [facility] regarding patient has discharged. Clinical information and prescription faxed to Trice at [facility], .
== END 2019-08-05 10:40 | disposition home health service (06) | DRG 314 ==
LOC: ED 16:09 → 4E 18:12 → EDHOLD 18:12 → 4E 19:41
PROVIDERS: Physician Assistant; ADMIT Internal Medicine
PROC: 0Y6T0Z1 Detachment at Right 3rd Toe, High, Open Approach (ICD-10-PCS; principal; 2019-07-31)
PROC: 02HV33Z Insertion of Infusion Device into Superior Vena Cava, Percutaneous Approach (ICD-10-PCS; 2019-08-05)
DX: E11.69 Type 2 diabetes mellitus with other specified complication (principal); E87.1 Hypo-osmolality and hyponatremia; L03.031 Cellulitis of right toe; F17.210 Nicotine dependence, cigarettes, uncomplicated; J44.9 Chronic obstructive pulmonary disease, unspecified; I10 Essential (primary) hypertension; D75.89 Other specified diseases of blood and blood-forming organs; E11.42 Type 2 diabetes mellitus with diabetic polyneuropathy; M86.8X7 Other osteomyelitis, ankle and foot; F33.0 Major depressive disorder, recurrent, mild; E11.51 Type 2 diabetes mellitus with diabetic peripheral angiopathy without gangrene; F10.20 Alcohol dependence, uncomplicated; Z79.4 Long term (current) use of insulin; Z79.899 Other long term (current) drug therapy; Z83.3 Family history of diabetes mellitus; Z83.6 Family history of other diseases of the respiratory system

== ENCOUNTER → 2019-11-23 | Outpatient (CLI) | payer OTHER ==
[~2019-11-23] MED LIST changes: +CHANTIX1 M1 PO; +CIPRO500 MG PO; +CUBICIN RF500 MG IV; +GLIMEPIRIDE4 M1 PO; +LISINOPRIL10 M1 PO; +XARELTO2.5 MG PO
[2019-11-23 15:23] LABS: BASO % 0.2 % (0.0-1.0); EOS # 0.1 10*3/uL (0.0-0.4); HEMATOCRIT 42.8 % (42.0-52.0); HEMOGLOBIN 13.7 g/dl (14.0-18.0); LYMPH # 1.8 10*3/uL (1.3-4.4); LYMPH % 14.3 % (27.0-41.0); MEAN CELL VOLUME 93.4 fl (80.0-94.0); MEAN CORPUSCULAR HGB 29.9 pg (27.0-31.0); MEAN PLATELET VOLUME 9.9 fl (9.6-12.3); MONO # 0.5 10*3/uL (0.1-1.0); NEUT # 10.2 10*3/uL (2.3-7.9); NEUT % 79.2 % (47.0-73.0); PLATELET COUNT AUTOMATED 279 10*3/uL (130-400); RED BLOOD COUNT 4.58 10*6/uL (4.50-5.90); RED CELL DISTRI WIDTH 13.8 % (0-14.5); WHITE BLOOD COUNT 12.8 10*3/uL (4.8-10.8)
[2019-11-23 15:39] LABS: ALBUMIN 3.9 gm/dl (3.1-4.5); ALKALINE PHOSPHATASE 40 U/L (45-117); BUN 24 mg/dl (7-24); CHLORIDE 104 mmol/L (98-107); CREATININE 0.99 mg/dL (0.70-1.30); SGOT/AST 14 IU/L (3-35); SGPT/ALT 37 U/L (12-78); SODIUM 133 mmol/L (136-145)
[2019-11-23 15:40] LABS: CHOLESTEROL 179 mg/dL (<200); TRIGLYCERIDES 249 mg/dl (<150); VLDL CHOLESTEROL 50 mg/dL (6-40)
[2019-11-23 15:41] LABS: HDL CHOLESTEROL 54 mg/dl (40-60); LDL CHOLESTEROL 75 mg/dL (9-159)
== END | disposition home or self-care (01) ==
LOC: LAB 15:05
PROVIDERS: Nurse Practitioner Family; Registered Nurse Infection Control
DX: E11.9 Type 2 diabetes mellitus without complications (principal); M86.8X7 Other osteomyelitis, ankle and foot

== ENCOUNTER 2020-08-07 13:45 | Inpatient (IN) | payer OTHER ==
[~2020-08-07] VITALS: Ht 180.3 cm; Wt 124.3 kg
[2020-08-07 09:44] VITALS: BP 134/72
[2020-08-07 13:51] VITALS: BP 140/77
[2020-08-07 14:53] LABS: BASO % 0.4 % (0.0-1.0); EOS # 0.2 10*3/uL (0.0-0.4); EOS % 2.4 % (1.0-4.0); HEMATOCRIT 40.8 % (42.0-52.0); LYMPH # 1.5 10*3/uL (1.3-4.4); LYMPH % 17.8 % (27.0-41.0); MEAN CELL VOLUME 92.9 fl (80.0-94.0); MEAN CORPUSCULAR HGB 29.6 pg (27.0-31.0); MEAN CORPUSCULAR HGB CONC 31.9 g/dl (33.0-37.0); MEAN PLATELET VOLUME 10.6 fl (9.6-12.3); MONO # 0.6 10*3/uL (0.1-1.0); MONO % 7.3 % (3.0-9.0); NEUT # 5.9 10*3/uL (2.3-7.9); NEUT % 71.5 % (47.0-73.0); PLATELET COUNT AUTOMATED 218 10*3/uL (130-400); RED BLOOD COUNT 4.39 10*6/uL (4.50-5.90); RED CELL DISTRI WIDTH 12.5 % (0-14.5); WHITE BLOOD COUNT 8.2 10*3/uL (4.8-10.8)
[2020-08-07 15:13] LABS: ALBUMIN 3.7 gm/dl (3.1-4.5); ALKALINE PHOSPHATASE 65 U/L (45-117); BUN 18 mg/dl (7-24); CHLORIDE 99 mmol/L (98-107); CREATININE 0.98 mg/dL (0.70-1.30); POTASSIUM 4.6 mmol/L (3.5-5.1); SGOT/AST 10 IU/L (3-35); SGPT/ALT 37 U/L (12-78); SODIUM 134 mmol/L (136-145); TOTAL PROTEIN 8.8 gm/dL (6.4-8.2)
[2020-08-07] MEDS ORDERED: ASMANEX HFA13 GM INH (19:43)
[2020-08-07] MEDS ORDERED: NEURONTIN400 MG PO (19:48)
[2020-08-07] MEDS ORDERED: BEVESPI AEROS10.7 GM IH (19:51)
[2020-08-07 21:12] VITALS: BP 139/74
[2020-08-07 22:57] VITALS: BP 130/67
[2020-08-08 04:41] VITALS: BP 132/72
[2020-08-08 06:07] LABS: BUN 17 mg/dl (7-24); CHLORIDE 103 mmol/L (98-107); CREATININE 0.93 mg/dL (0.70-1.30); POTASSIUM 4.4 mmol/L (3.5-5.1); SODIUM 135 mmol/L (136-145)
[2020-08-08 06:11] LABS: BASO % 0.3 % (0.0-1.0); EOS # 0.3 10*3/uL (0.0-0.4); EOS % 4.5 % (1.0-4.0); HEMATOCRIT 38.9 % (42.0-52.0); LYMPH # 1.9 10*3/uL (1.3-4.4); LYMPH % 31.8 % (27.0-41.0); MEAN CELL VOLUME 91.7 fl (80.0-94.0); MEAN CORPUSCULAR HGB 29.2 pg (27.0-31.0); MEAN CORPUSCULAR HGB CONC 31.9 g/dl (33.0-37.0); MEAN PLATELET VOLUME 10.7 fl (9.6-12.3); MONO # 0.6 10*3/uL (0.1-1.0); MONO % 10.3 % (3.0-9.0); NEUT # 3.2 10*3/uL (2.3-7.9); NEUT % 52.8 % (47.0-73.0); PLATELET COUNT AUTOMATED 212 10*3/uL (130-400); RED BLOOD COUNT 4.24 10*6/uL (4.50-5.90); RED CELL DISTRI WIDTH 12.5 % (0-14.5)
[2020-08-08 08:27] VITALS: BP 126/72
[2020-08-08 12:00] VITALS: BP 134/68
[2020-08-08 16:00] VITALS: BP 136/85
[2020-08-08 20:00] VITALS: BP 136/76
[2020-08-09] VITALS (10 sets, daily range): BP systolic 119–151; BP diastolic 62–86
[2020-08-10] VITALS: BP 138/74
[2020-08-10 08:00] VITALS: BP 128/74
[2020-08-10 11:09] LABS: ACID FAST SPEC PROCESSING Tissue Grinding (.)
[2020-08-10 11:09] LABS: ACID FAST SPEC PROCESSING Tissue Grinding (.)
[2020-08-10 12:00] VITALS: BP 131/64
[2020-08-10 16:00] VITALS: BP 130/65
[2020-08-10 20:00] VITALS: BP 140/77
[2020-08-11] VITALS: BP 115/70
[2020-08-11] MEDS ORDERED: SEPTDS PO (07:36)
[2020-08-11 08:00] VITALS: BP 120/77
[2020-09-26 12:10] LABS: ACID FAST CULTURE Negative (.)
[2020-09-26 12:10] LABS: ACID FAST CULTURE Negative (.)
== END 2020-08-11 12:35 | disposition home or self-care (01) | DRG 314 ==
LOC: ED 13:45 → EDHOLD 16:15 → 5E 16:15
PROVIDERS: Nurse Practitioner Family; Podiatrist; Podiatrist Foot & Ankle Surgery; ADMIT Internal Medicine; ATTEND Internal Medicine
PROC: 0Y6V0Z0 Detachment at Right 4th Toe, Complete, Open Approach (ICD-10-PCS; principal; 2020-08-09)
DX: E11.69 Type 2 diabetes mellitus with other specified complication (principal); M86.8X7 Other osteomyelitis, ankle and foot; E44.1 Mild protein-calorie malnutrition; F17.210 Nicotine dependence, cigarettes, uncomplicated; J44.9 Chronic obstructive pulmonary disease, unspecified; E11.42 Type 2 diabetes mellitus with diabetic polyneuropathy; E11.51 Type 2 diabetes mellitus with diabetic peripheral angiopathy without gangrene; D75.89 Other specified diseases of blood and blood-forming organs; L02.611 Cutaneous abscess of right foot; B96.89 Other specified bacterial agents as the cause of diseases classified elsewhere; E11.65 Type 2 diabetes mellitus with hyperglycemia; E11.621 Type 2 diabetes mellitus with foot ulcer; I10 Essential (primary) hypertension; E78.5 Hyperlipidemia, unspecified; F10.139 Alcohol abuse with withdrawal, unspecified; L97.519 Non-pressure chronic ulcer of other part of right foot with unspecified severity; F32.9 Major depressive disorder, single episode, unspecified; Z89.412 Acquired absence of left great toe; Z89.421 Acquired absence of other right toe(s); Z71.6 Tobacco abuse counseling; Z83.3 Family history of diabetes mellitus; Z82.5 Family history of asthma and other chronic lower respiratory diseases; Z68.38 Body mass index [BMI] 38.0-38.9, adult

== ENCOUNTER → 2020-08-18 | Outpatient (CLI) | payer OTHER ==
[~2020-08-18] MED LIST changes: +ASMANEX HFA13 GM INH; +BEVESPI AEROS10.7 GM IH; +NEURONTIN400 MG PO; +SEPTDS PO
[2020-08-18 14:20] LABS: HEMATOCRIT 40.6 % (42.0-52.0); MEAN CELL VOLUME 90.8 fl (80.0-94.0); MEAN CORPUSCULAR HGB 29.5 pg (27.0-31.0); MEAN CORPUSCULAR HGB CONC 32.5 g/dl (33.0-37.0); MEAN PLATELET VOLUME 10.3 fl (9.6-12.3); RED BLOOD COUNT 4.47 10*6/uL (4.50-5.90); RED CELL DISTRI WIDTH 11.9 % (0-14.5)
[2020-08-18 14:55] LABS: ALBUMIN 3.6 gm/dl (3.1-4.5); ALKALINE PHOSPHATASE 69 U/L (45-117); BUN 23 mg/dl (7-24); CHLORIDE 101 mmol/L (98-107); CHOLESTEROL 154 mg/dL (<200); CPK 136 U/L (39-308); CREATININE 1.02 mg/dL (0.70-1.30); HDL CHOLESTEROL 33 mg/dl (40-60); LDL CHOLESTEROL 71 mg/dL (9-159); POTASSIUM 4.9 mmol/L (3.5-5.1); SGOT/AST 11 IU/L (3-35); SGPT/ALT 44 U/L (12-78); SODIUM 135 mmol/L (136-145); TOTAL PROTEIN 8.8 gm/dL (6.4-8.2); TRIGLYCERIDES 252 mg/dl (<150); VLDL CHOLESTEROL 50 mg/dL (6-40)
== END | disposition home or self-care (01) ==
LOC: LAB 13:53
PROVIDERS: ATTEND Family Medicine
DX: Z12.5 Encounter for screening for malignant neoplasm of prostate (principal); F41.1 Generalized anxiety disorder; E55.9 Vitamin D deficiency, unspecified; E78.00 Pure hypercholesterolemia, unspecified; E11.9 Type 2 diabetes mellitus without complications; R07.1 Chest pain on breathing; J41.0 Simple chronic bronchitis; J90 Pleural effusion, not elsewhere classified

== ENCOUNTER → 2020-12-29 | Outpatient (CLI) | payer OTHER ==
[2020-12-29 10:43] LABS: HEMATOCRIT 44.2 % (42.0-52.0); MEAN CORPUSCULAR HGB 30.1 pg (27.0-31.0); MEAN CORPUSCULAR HGB CONC 33.5 g/dl (33.0-37.0); MEAN PLATELET VOLUME 10.9 fl (9.6-12.3); RED BLOOD COUNT 4.91 10*6/uL (4.50-5.90); RED CELL DISTRI WIDTH 12.4 % (0-14.5)
[2020-12-29 11:00] LABS: ALBUMIN 3.6 gm/dl (3.1-4.5); ALKALINE PHOSPHATASE 76 U/L (45-117); BUN 48 mg/dl (7-24); CHLORIDE 102 mmol/L (98-107); CHOLESTEROL 169 mg/dL (<200); CPK 342 U/L (39-308); CREATININE 1.38 mg/dL (0.70-1.30); HDL CHOLESTEROL 30 mg/dl (40-60); POTASSIUM 4.9 mmol/L (3.5-5.1); SGOT/AST 18 IU/L (3-35); SGPT/ALT 42 U/L (12-78); SODIUM 136 mmol/L (136-145); TOTAL PROTEIN 8.2 gm/dL (6.4-8.2); TRIGLYCERIDES 430 mg/dl (<150)
[2020-12-29 11:41] LABS: VITAMIN D, 25-HYDROXY 11.3 ng/mL (30-100)
== END | disposition home or self-care (01) ==
LOC: LAB 10:24 → CT 11:00
PROVIDERS: ATTEND Family Medicine
DX: J98.11 Atelectasis (principal); K76.0 Fatty (change of) liver, not elsewhere classified; E78.00 Pure hypercholesterolemia, unspecified; R53.83 Other fatigue; E11.9 Type 2 diabetes mellitus without complications; I10 Essential (primary) hypertension; E55.9 Vitamin D deficiency, unspecified; R91.8 Other nonspecific abnormal finding of lung field

== ENCOUNTER → 2021-03-24 | Outpatient (CLI) | payer MEDICARE | END | disposition home or self-care (01) | LOC: RAD 12:58 | PROVIDERS: ATTEND Family Medicine | DX: M25.461 Effusion, right knee (principal) ==

== ENCOUNTER → 2021-09-12 | Outpatient (CLI) | payer MEDICARE | END | disposition home or self-care (01) | LOC: US 14:50 | PROVIDERS: ATTEND Family Medicine | DX: I65.23 Occlusion and stenosis of bilateral carotid arteries (principal); R09.89 Other specified symptoms and signs involving the circulatory and respiratory systems ==

== ENCOUNTER → 2023-11-11 | Outpatient (CLI) | payer MEDICARE ==
[2023-11-11 14:16] LABS: HEMATOCRIT 49.1 % (42.0-52.0); MEAN CORPUSCULAR HGB 31.9 pg (27.0-31.0); MEAN CORPUSCULAR HGB CONC 33.6 g/dl (33.0-37.0); MEAN PLATELET VOLUME 10.5 fl (9.6-12.3); RED BLOOD COUNT 5.17 10*6/uL (4.50-5.90); RED CELL DISTRI WIDTH 11.9 % (0-14.5)
[2023-11-11 14:44] LABS: ALKALINE PHOSPHATASE 61 U/L (46-116); BUN 9 mg/dl (9-23); CHLORIDE 102 mmol/L (98-107); CHOLESTEROL 189 mg/dL (<200); CPK 81 U/L (34-171); LDL CHOLESTEROL 106 mg/dL (9-159); POTASSIUM 4.2 mmol/L (3.4-5.1); SGPT/ALT 22 U/L (5-49); TOTAL PROTEIN 7.4 gm/dL (6.0-8.0); TRIGLYCERIDES 190 mg/dl (<150)
[2023-11-11 14:59] LABS: VITAMIN D, 25-HYDROXY 18.4 ng/mL (30-100)
== END ==
LOC: LAB 13:55
PROVIDERS: ATTEND Family Medicine
DX: E55.9 Vitamin D deficiency, unspecified (principal); E78.00 Pure hypercholesterolemia, unspecified; Z12.5 Encounter for screening for malignant neoplasm of prostate; I10 Essential (primary) hypertension; E11.9 Type 2 diabetes mellitus without complications

== ENCOUNTER → 2024-09-22 | Outpatient (CLI) | payer OTHER ==
[2024-09-22 13:22] LABS: HEMATOCRIT 44.4 % (42.0-52.0); MEAN CORPUSCULAR HGB 30.5 pg (27.0-31.0); MEAN CORPUSCULAR HGB CONC 33.6 g/dl (33.0-37.0); MEAN PLATELET VOLUME 10.7 fl (9.6-12.3); RED BLOOD COUNT 4.88 10*6/uL (4.50-5.90); RED CELL DISTRI WIDTH 12.4 % (0-14.5); WHITE BLOOD COUNT 8.9 10*3/uL (4.8-10.8)
[2024-09-22 13:46] LABS: ACT PARTIAL THROMBO TIME 27.1 SECONDS (20.0-32.1)
[2024-09-22 13:54] LABS: ALKALINE PHOSPHATASE 62 U/L (46-116); BUN 16 mg/dl (9-23); CHLORIDE 102 mmol/L (98-107); CHOLESTEROL 187 mg/dL (<200); CPK 65 U/L (34-171); LDL CHOLESTEROL 107 mg/dL (9-159); SGPT/ALT 17 U/L (5-49); TOTAL PROTEIN 7.9 gm/dL (6.0-8.0); TRIGLYCERIDES 184 mg/dl (<150)
[2024-09-22 13:57] LABS: VITAMIN D, 25-HYDROXY 11.4 ng/mL (30-100)
== END | disposition home or self-care (01) ==
LOC: LAB 12:53
PROVIDERS: ATTEND Family Medicine
DX: Z51.81 Encounter for therapeutic drug level monitoring (principal); Z01.812 Encounter for preprocedural laboratory examination; E78.00 Pure hypercholesterolemia, unspecified; E55.9 Vitamin D deficiency, unspecified; R53.83 Other fatigue; E11.9 Type 2 diabetes mellitus without complications; R94.31 Abnormal electrocardiogram [ECG] [EKG]

== ENCOUNTER → 2024-09-29 | Outpatient (CLI) | payer OTHER | END | disposition home or self-care (01) | LOC: CARD 14:21 | PROVIDERS: ATTEND Family Medicine | DX: Z01.818 Encounter for other preprocedural examination (principal); E78.00 Pure hypercholesterolemia, unspecified; E55.9 Vitamin D deficiency, unspecified; E11.9 Type 2 diabetes mellitus without complications; R53.83 Other fatigue ==

== ENCOUNTER → 2024-10-06 | Outpatient (CLI) | payer OTHER | END | disposition home or self-care (01) | LOC: RAD 10:29 | PROVIDERS: ATTEND Family Medicine | DX: R06.02 Shortness of breath (principal) ==